=== PATIENT | male | born 1950 | race Caucasian/White ===

== ENCOUNTER 2018-03-13 17:58 | Inpatient (IN) | payer OTHER ==
[~2018-03-13 17:58] MED LIST: ETOMIDATE 20 MG INJ; SUCCINYLCHOLINE CHLORIDE 100 MG/5 ML SYG IV
[2018-03-13] MEDS: ETOMIDATE 20 MG INJ IV (17:59)
[2018-03-13] MEDS: SUCCINYLCHOLINE CHLORIDE 100 MG/5 ML SYG IV (18:00)
[2018-03-13] MEDS: PIPER-TAZO 3.375 GM IV (PMX) 100 ML IVPB (18:07)
[2018-03-13] MEDS ORDERED: PROPOFOL 100 ML (18:11)
[2018-03-13] MEDS: PROPOFOL 100 ML IV ×2 (18:15→22:27)
[2018-03-13 18:23] LABS: ADD MAN DIFF? NO
[2018-03-13 18:25] LABS: WHITE BLOOD COUNT 14.4 10^3/ul (4.8-10.8)
[2018-03-13 18:25] LABS: BASOPHIL # 0.1 10^3/ul (0.0-0.1); BASOPHILS % 0.3 % (0.0-2.0); EOSINOPHILS % 0.1 % (0.0-7.0); HEMOGLOBIN 12.9 g/dl (14.0-18.0); LYMPHOCYTES # 1.5 10^3/ul (0.8-2.9); LYMPHOCYTES % 10.7 % (15.0-51.0); MEAN CORPUSCULAR HEMOGLOBIN 33.2 pg (29.0-33.0); MEAN CORPUSCULAR HGB CONC 32.3 g/dl (32.0-37.0); MEAN CORPUSCULAR VOLUME 102.8 fl (82.0-101.0); MEAN PLATELET VOLUME 12.2 fl (7.4-10.4); MONOCYTES % 6.7 % (0.0-11.0); NEUTROPHIL # 11.8 10^3/ul (1.6-7.5); NEUTROPHILS % 81.9 % (39.0-77.0); PLATELET COUNT 230 10^3/UL (140-415); RED BLOOD COUNT 3.89 10^6/ul (4.70-6.10); RED CELL DISTRIBUTION WIDTH 13.5 % (11.5-14.5)
[2018-03-13 18:29] LABS: INR 1.01; PROTIME 13.4 Sec (11.9-14.9)
[2018-03-13 18:30] LABS: PARTIAL THROMBOPLASTIN TIME 30.4 Sec (23.0-35.0)
[2018-03-13 18:32] LABS: ALANINE AMINOTRANSFERASE 34 IU/L (13-69); ALBUMIN 4.4 g/dl (3.3-4.9); ALBUMIN/GLOBULIN RATIO 1.04; ALKALINE PHOSPHATASE 91 IU/L (42-121); AMYLASE 81 U/L (11-123); ANION GAP 23 (8-16); ASPARTATE AMINO TRANSFERASE 114 IU/L (15-46); BILIRUBIN,INDIRECT 1.5 mg/dl (0-1.1); BILIRUBIN,TOTAL 1.5 mg/dl (0.2-1.3); BLOOD UREA NITROGEN 17 mg/dl (7-20); CALCIUM 9.3 mg/dl (8.4-10.2); CARBON DIOXIDE 15 mmol/L (21-31); CHLORIDE 110 mmol/L (97-110); CREATININE 1.32 mg/dl (0.61-1.24); GLUCOSE 246 mg/dl (70-220); LIPASE 57 U/L (23-300); POTASSIUM 4.8 mmol/L (3.5-5.1); SODIUM 143 mmol/L (135-144); TOTAL PROTEIN 8.6 g/dl (6.1-8.1)
[2018-03-13 18:37] LABS: LACTIC ACID 6.4 mmol/L (0.5-2.0)
[2018-03-13 18:50] LABS: AADO2 Arterial 530.6 mmHg (7.0-24.0); Allen Test ACCEPTAB; Arterial Base Excess -13.9 mmol/L (-3.0-3); Arterial Blood Gas Oxygen Sat 98.1 mmHG (95.0-98.0); Arterial COHb 0.7 % (0.0-3.0); Arterial Fraction of Oxyhgb 97.1 % (93.0-99.0); Arterial HCO3 13.9 mmol/L (22.0-26.0); Arterial MetHb 0.3 % (0.0-1.5); Arterial Total Hemglobin 13.7 g/dl (12.0-18.0); Arterial pCO2 39.2 mmhg (35-45); MODE VENT - AC; Site Right Radial
[2018-03-13 18:59] LABS: ETHANOL < 10.0 mg/dl
[2018-03-13 19:08] LABS: B-TYPE NATRIURETIC PEPTIDE 12800 PG/ML (0-125)
[2018-03-13] MEDS: LORAZEPAM 2 MG INJ IV (19:12)
[2018-03-13] MEDS: VANCOMYCIN 1 GM (PMX) 250 ML IVPB (19:40)
[2018-03-13] MEDS ORDERED: FLUMAZENIL 0.5 MG INJ IV (20:00)
[2018-03-13] MEDS ORDERED: NALOXONE (0.4 MG/ML) INJ IV (20:00)
[2018-03-13] MEDS ORDERED: DOCUSATE SODIUM 100 MG CAP PO (20:00)
[2018-03-13] MEDS ORDERED: ONDANSETRON 4 MG INJ IV (20:00)
[2018-03-13] MEDS ORDERED: ACETAMINOPHEN 325 MG TAB PO (20:00)
[2018-03-13] MEDS ORDERED: ALBUTEROL 0.083% (NEB) 2.5 MG/3 ML AMP NEB ×2 (20:00→21:00)
[2018-03-13] MEDS ORDERED: ACETAMINOPHEN 650 MG SUPP PR (20:00)
[2018-03-13] MEDS ORDERED: IPRATROPIUM (NEB) 0.5 MG/2.5 ML AMP NEB ×2 (20:00→21:00)
[2018-03-13] MEDS ORDERED: FENTAnyl (DRIP) 1000 mcg/100mL 100 ML IV (20:00)
[2018-03-13] MEDS: MIDAZOLAM (DRIP) 50 mg/50 mL 50 ML IV (20:18)
[2018-03-13] MEDS: SODIUM CHLORIDE 0.9% 1L BAG IV* (20:24)
[2018-03-13 20:35] LABS: ADD UMIC YES; UR AMORPHOUS CRYSTAL FEW /HPF (NONE SEEN); UR ASCORBIC ACID NEGATIVE (NEGATIVE); UR BACTERIA FEW /HPF (NONE SEEN); UR BILIRUBIN (Dip) NEGATIVE (NEGATIVE); UR BLOOD (Dip) 2+ mg/dL (NEGATIVE); UR CLARITY CLOUDY (CLEAR); UR COLOR AMBER (YELLOW); UR GLUCOSE (Dip) 1+ mg/dL (NEGATIVE); UR KETONES (Dip) 1+ mg/dL (NEGATIVE); UR LEUKOCYTE ESTERASE (Dip) NEGATIVE Leu/ul (NEGATIVE); UR MUCUS FEW /HPF (NONE SEEN); UR NITRITE (Dip) NEGATIVE (NEGATIVE); UR RBC 9 /HPF (0-5); UR SPECIFIC GRAVITY (Dip) 1.019 (1.003-1.030); UR SQUAMOUS EPITHELIAL CELL FEW /HPF (FEW); UR TOTAL PROTEIN (Dip) 2+ mg/dl (NEGATIVE); UR UROBILINOGEN (Dip) NEGATIVE (NEGATIVE); UR WBC 4 /HPF (0-5)
[2018-03-13 20:42] LABS: HEMOGLOBIN A1C 5.2 % (0-5.9)
[2018-03-13] MEDS: ALBUTEROL/IPRATROPIUM (NEB) 3 ML AMP NEB (21:01)
[2018-03-13] MEDS: ROCURONIUM 50 MG INJ IV (22:16)
[2018-03-13] MEDS: NORepinephrine 8MG/250 ML (PMX 250 ML IV (22:18)
[2018-03-13] MEDS: MAGNESIUM SULFATE 2 GM, MULTIVITAMINS 10 ML, THIAMINE 100 MG, FOLIC ACID 1 MG in SOD CH... IV (22:34)
[2018-03-13 22:38] LABS: LACTIC ACID 2.5 mmol/L (0.5-2.0)
[2018-03-14] MEDS: PIPER-TAZO 3.375 GM IV (PMX) 100 ML IVPB ×4 (00:51→18:24)
[2018-03-14] MEDS: DEXTROSE 5%-0.45% NACL 1,000 ML IV ×3 (00:51→21:09)
[2018-03-14] MEDS: ALBUTEROL/IPRATROPIUM (NEB) 3 ML AMP NEB ×5 (01:07→20:04)
[2018-03-14 01:30] LABS: LACTIC ACID 1.3 mmol/L (0.5-2.0)
[2018-03-14] MEDS ORDERED: GLUCOSE GEL 15 GRAM TUBE BUCCAL (05:30)
[2018-03-14] MEDS ORDERED: GLUCOSE GEL 15 GRAM TUBE PO ×2 (05:30)
[2018-03-14] MEDS ORDERED: GLUCAGON 1 MG INJ IM (05:30)
[2018-03-14] MEDS ORDERED: DEXTROSE 50% 50 ML SYRINGE IV ×2 (05:30)
[2018-03-14] MEDS: PANTOPRAZOLE 40 MG INJ IV (06:01)
[2018-03-14] MEDS: PROPOFOL 100 ML IV ×3 (06:03→23:12)
[2018-03-14 08:54] LABS: ADD MAN DIFF? NO
[2018-03-14 09:00] LABS: BASOPHILS % 0.2 % (0.0-2.0); HEMATOCRIT 31.9 % (42.0-52.0); HEMOGLOBIN 10.4 g/dl (14.0-18.0); LYMPHOCYTES % 9.6 % (15.0-51.0); MEAN CORPUSCULAR HEMOGLOBIN 33.3 pg (29.0-33.0); MEAN CORPUSCULAR HGB CONC 32.6 g/dl (32.0-37.0); MEAN CORPUSCULAR VOLUME 102.2 fl (82.0-101.0); MEAN PLATELET VOLUME 11.6 fl (7.4-10.4); MONOCYTE # 0.5 10^3/ul (0.3-0.9); MONOCYTES % 5.2 % (0.0-11.0); NEUTROPHIL # 8.7 10^3/ul (1.6-7.5); NEUTROPHILS % 84.8 % (39.0-77.0); PLATELET COUNT 130 10^3/UL (140-415); RED BLOOD COUNT 3.12 10^6/ul (4.70-6.10); RED CELL DISTRIBUTION WIDTH 13.7 % (11.5-14.5)
[2018-03-14 09:00] LABS: WHITE BLOOD COUNT 10.3 10^3/ul (4.8-10.8)
[2018-03-14 09:20] LABS: ANION GAP 9 (8-16); BLOOD UREA NITROGEN 20 mg/dl (7-20); CALCIUM 7.3 mg/dl (8.4-10.2); CARBON DIOXIDE 21 mmol/L (21-31); CHLORIDE 117 mmol/L (97-110); CREATININE 1.26 mg/dl (0.61-1.24); GLUCOSE 186 mg/dl (70-220); POTASSIUM 4.8 mmol/L (3.5-5.1); SODIUM 142 mmol/L (135-144)
[2018-03-14] MEDS: ENOXAPARIN 40 MG/0.4 ML SYG SC (09:26)
[2018-03-14] MEDS: INSULIN ASPART [NOVOLOG] 3 ML PEN SC ×4 (09:26→20:49)
[2018-03-14] MEDS: MULTIVITAMINS 10 ML, THIAMINE 100 MG, FOLIC ACID 1 MG in SOD CHLORIDE 0.9% 1,000 ML IVPB (09:27)
[2018-03-14 09:28] LABS: AADO2 Arterial 239.7 mmHg (7.0-24.0); Allen Test ACCEPTAB; Arterial Base Excess -4.4 mmol/L (-3.0-3); Arterial Blood Gas Oxygen Sat 98.9 mmHG (95.0-98.0); Arterial COHb 0.2 % (0.0-3.0); Arterial Fraction of Oxyhgb 98.4 % (93.0-99.0); Arterial HCO3 19.2 mmol/L (22.0-26.0); Arterial MetHb 0.3 % (0.0-1.5); Arterial Total Hemglobin 11.8 g/dl (12.0-18.0); Arterial pCO2 30.7 mmhg (35-45); MODE VENT - AC; Site Right Radial
[2018-03-14] MEDS ORDERED: HEPARIN 1000 UNITS/ML 10 ML INJ IV (10:00)
[2018-03-14] MEDS: FENTAnyl (DRIP) 1000 mcg/100mL 100 ML IV ×2 (11:04→19:25)
[2018-03-14] MEDS: HEPARIN 1000 UNITS/ML 10 ML INJ IV (11:05)
[2018-03-14] MEDS: HEPARIN 25000 UNITS/250 ML 250 ML IV (11:06)
[2018-03-14] MEDS: ASPIRIN 325 MG TAB NGT (11:10)
[2018-03-14] MEDS: ALBUMIN HUMAN 25% 100 ML IV ×2 (15:05→23:03)
[2018-03-14 15:08] LABS: B-TYPE NATRIURETIC PEPTIDE 11900 PG/ML (0-125)
[2018-03-14 15:25] LABS: CHOLESTEROL 167 mg/dl (100-200)
[2018-03-14 15:25] LABS: CHOL/HDL RATIO 2.4 RATIO; HDL CHOLESTEROL 68 mg/dl (30-78); LDL CHOLESTEROL,CALCULATED 87 mg/dl; TRIGLYCERIDES 59 mg/dl (0-149)
[2018-03-14] MEDS: MAGNESIUM SULFATE 2 GM/50 ML 50 ML IVPB (16:31)
[2018-03-14 18:44] LABS: PARTIAL THROMBOPLASTIN TIME > 180.0 Sec (23.0-35.0)
[2018-03-14] MEDS: ISOSORBIDE DINITRATE 5 MG TAB PO (20:49)
[2018-03-14 21:41] LABS: PARTIAL THROMBOPLASTIN TIME 61.8 Sec (23.0-35.0)
[2018-03-15] MEDS: PIPER-TAZO 3.375 GM IV (PMX) 100 ML IVPB ×4 (00:04→18:24)
[2018-03-15] MEDS: LORAZEPAM 2 MG INJ IV (00:23)
[2018-03-15] MEDS: INSULIN ASPART [NOVOLOG] 3 ML PEN SC ×6 (01:27→22:28)
[2018-03-15] MEDS ORDERED: ACCU-CHEK XX (02:00)
[2018-03-15] MEDS: ALBUTEROL/IPRATROPIUM (NEB) 3 ML AMP NEB ×6 (04:11→20:13)
[2018-03-15 04:55] LABS: ADD MAN DIFF? NO
[2018-03-15 05:07] LABS: WHITE BLOOD COUNT 5.6 10^3/ul (4.8-10.8)
[2018-03-15 05:07] LABS: ABNORMAL IP MESSAGE 1; BASOPHILS % 0.4 % (0.0-2.0); EOSINOPHILS # 0.1 10^3/ul (0.0-0.5); EOSINOPHILS % 0.9 % (0.0-7.0); HEMATOCRIT 26.6 % (42.0-52.0); HEMOGLOBIN 8.5 g/dl (14.0-18.0); LYMPHOCYTES # 1.1 10^3/ul (0.8-2.9); LYMPHOCYTES % 19.8 % (15.0-51.0); MEAN CORPUSCULAR HEMOGLOBIN 33.3 pg (29.0-33.0); MEAN CORPUSCULAR VOLUME 104.3 fl (82.0-101.0); MEAN PLATELET VOLUME 12.6 fl (7.4-10.4); MONOCYTE # 0.4 10^3/ul (0.3-0.9); MONOCYTES % 6.6 % (0.0-11.0); NEUTROPHIL # 4.1 10^3/ul (1.6-7.5); NEUTROPHILS % 72.1 % (39.0-77.0); PLATELET COUNT 86 10^3/UL (140-415); POSITIVE DIFF @See below; RED BLOOD COUNT 2.55 10^6/ul (4.70-6.10); RED CELL DISTRIBUTION WIDTH 13.9 % (11.5-14.5)
[2018-03-15] MEDS: FENTAnyl (DRIP) 1000 mcg/100mL 100 ML IV ×2 (05:12→22:23)
[2018-03-15] MEDS: PANTOPRAZOLE 40 MG INJ IV (05:14)
[2018-03-15 05:27] LABS: PARTIAL THROMBOPLASTIN TIME 50.6 Sec (23.0-35.0)
[2018-03-15 05:48] LABS: ANION GAP 10 (8-16); BLOOD UREA NITROGEN 17 mg/dl (7-20); CALCIUM 7.4 mg/dl (8.4-10.2); CARBON DIOXIDE 22 mmol/L (21-31); CHLORIDE 113 mmol/L (97-110); GLUCOSE 145 mg/dl (70-220); MAGNESIUM 2.2 mg/dl (1.7-2.5); PHOSPHORUS 2.5 mg/dl (2.5-4.9); POTASSIUM 3.9 mmol/L (3.5-5.1); SODIUM 141 mmol/L (135-144)
[2018-03-15] MEDS: PROPOFOL 100 ML IV ×3 (06:19→20:43)
[2018-03-15 07:42] LABS: AADO2 Arterial 151.1 mmHg (7.0-24.0); Allen Test ACCEPTAB; Arterial Base Excess -5.5 mmol/L (-3.0-3); Arterial Blood Gas Oxygen Sat 96.4 mmHG (95.0-98.0); Arterial COHb 0.3 % (0.0-3.0); Arterial Fraction of Oxyhgb 95.9 % (93.0-99.0); Arterial HCO3 19.6 mmol/L (22.0-26.0); Arterial MetHb 0.2 % (0.0-1.5); Arterial pCO2 36.5 mmhg (35-45); MODE VENT - AC; Site Right Radial
[2018-03-15] MEDS: ALBUMIN HUMAN 25% 100 ML IV (07:56)
[2018-03-15] MEDS: ASPIRIN 325 MG TAB NGT (09:39)
[2018-03-15] MEDS: ISOSORBIDE DINITRATE 5 MG TAB PO (09:39)
[2018-03-15] MEDS ORDERED: VANCOMYCIN IV PER PHARMACY XX (10:00)
[2018-03-15 11:09] LABS: PLATELET COUNT 77 10^3/UL (140-415)
[2018-03-15] MEDS: MULTIVITAMINS 10 ML, THIAMINE 100 MG, FOLIC ACID 1 MG in SOD CHLORIDE 0.9% 1,000 ML IVPB (11:11)
[2018-03-15] MEDS: DEXMEDETOMIDINE HCL 200 MCG in SOD CHLORIDE 0.9% 48 ML IV ×5 (11:12→23:02)
[2018-03-15 11:15] LABS: INR 1.17; PROTIME 15.1 Sec (11.9-14.9); PT RATIO 1.2
[2018-03-15 11:16] LABS: PARTIAL THROMBOPLASTIN TIME 56.6 Sec (23.0-35.0)
[2018-03-15 11:19] LABS: D-DIMER 1923.91 ng/ml (<460)
[2018-03-15 11:20] LABS: THROMBIN TIME 21.5 SEC (13.8-19.1)
[2018-03-15] MEDS: CHLORDIAZEPOXIDE 25 MG CAP PO (12:41)
[2018-03-15 12:48] LABS: FIBRIN SPLIT PRODUCT <10 ug/ml (<10)
[2018-03-15 13:51] LABS: ALANINE AMINOTRANSFERASE 24 IU/L (13-69); ALBUMIN 2.8 g/dl (3.3-4.9); ALKALINE PHOSPHATASE 40 IU/L (42-121); ASPARTATE AMINO TRANSFERASE 48 IU/L (15-46); BILIRUBIN,INDIRECT 0.7 mg/dl (0-1.1); BILIRUBIN,TOTAL 0.7 mg/dl (0.2-1.3); TOTAL PROTEIN 5.8 g/dl (6.1-8.1)
[2018-03-15] MEDS: VANCOMYCIN 1.75 GM in SOD CHLORIDE 0.9% 500 ML IVPB (14:19)
[2018-03-15 14:49] LABS: ADD MAN DIFF? NO
[2018-03-15 14:53] LABS: WHITE BLOOD COUNT 4.7 10^3/ul (4.8-10.8)
[2018-03-15 14:53] LABS: ABNORMAL IP MESSAGE 1; BASOPHILS % 0.4 % (0.0-2.0); EOSINOPHILS # 0.1 10^3/ul (0.0-0.5); EOSINOPHILS % 1.5 % (0.0-7.0); HEMATOCRIT 27.5 % (42.0-52.0); HEMOGLOBIN 8.7 g/dl (14.0-18.0); LYMPHOCYTES # 1.1 10^3/ul (0.8-2.9); MEAN CORPUSCULAR HEMOGLOBIN 33.3 pg (29.0-33.0); MEAN CORPUSCULAR HGB CONC 31.6 g/dl (32.0-37.0); MEAN CORPUSCULAR VOLUME 105.4 fl (82.0-101.0); MONOCYTE # 0.3 10^3/ul (0.3-0.9); MONOCYTES % 7.1 % (0.0-11.0); NEUTROPHIL # 3.1 10^3/ul (1.6-7.5); NEUTROPHILS % 66.8 % (39.0-77.0); PLATELET COUNT 77 10^3/UL (140-415); POSITIVE DIFF @See below; RED BLOOD COUNT 2.61 10^6/ul (4.70-6.10)
[2018-03-15 15:46] LABS: HEPATITIS B SURFACE ANTIGEN NEGATIVE (NEGATIVE)
[2018-03-15 16:04] LABS: HEPATITIS B CORE ANTIBODY NEGATIVE (NEGATIVE); HEPATITIS C VIRAL ANTIBODY NEGATIVE (NEGATIVE)
[2018-03-15 16:32] LABS: FOLATE > 20.0 ng/ml (2.8-20.0)
[2018-03-15] MEDS: DEXTROSE 5%-0.45% NACL 1,000 ML IV ×2 (20:07→21:46)
[2018-03-16] MEDS: CHLORDIAZEPOXIDE 25 MG CAP PO ×4 (01:12→21:07)
[2018-03-16] MEDS: PROPOFOL 100 ML IV ×3 (01:13→19:43)
[2018-03-16] MEDS: INSULIN ASPART [NOVOLOG] 3 ML PEN SC ×6 (01:20→21:00)
[2018-03-16] MEDS: PIPER-TAZO 3.375 GM IV (PMX) 100 ML IVPB ×2 (01:22→05:17)
[2018-03-16] MEDS: ALBUTEROL/IPRATROPIUM (NEB) 3 ML AMP NEB ×6 (01:27→20:38)
[2018-03-16] MEDS: DEXMEDETOMIDINE HCL 200 MCG in SOD CHLORIDE 0.9% 48 ML IV ×7 (02:05→18:23)
[2018-03-16 04:55] LABS: ADD MAN DIFF? NO
[2018-03-16 05:01] LABS: WHITE BLOOD COUNT 4.7 10^3/ul (4.8-10.8)
[2018-03-16 05:01] LABS: ABNORMAL IP MESSAGE 1; BASOPHILS % 0.6 % (0.0-2.0); EOSINOPHILS # 0.1 10^3/ul (0.0-0.5); HEMATOCRIT 29.2 % (42.0-52.0); HEMOGLOBIN 9.2 g/dl (14.0-18.0); LYMPHOCYTES # 1.1 10^3/ul (0.8-2.9); LYMPHOCYTES % 23.7 % (15.0-51.0); MEAN CORPUSCULAR HEMOGLOBIN 33.5 pg (29.0-33.0); MEAN CORPUSCULAR HGB CONC 31.5 g/dl (32.0-37.0); MEAN CORPUSCULAR VOLUME 106.2 fl (82.0-101.0); MEAN PLATELET VOLUME 12.5 fl (7.4-10.4); MONOCYTE # 0.3 10^3/ul (0.3-0.9); MONOCYTES % 7.3 % (0.0-11.0); PLATELET COUNT 78 10^3/UL (140-415); POSITIVE DIFF @See below; RED BLOOD COUNT 2.75 10^6/ul (4.70-6.10); RED CELL DISTRIBUTION WIDTH 14.1 % (11.5-14.5)
[2018-03-16] MEDS: PANTOPRAZOLE 40 MG INJ IV (05:17)
[2018-03-16 05:18] LABS: PHOSPHORUS 2.3 mg/dl (2.5-4.9)
[2018-03-16 05:25] LABS: ALANINE AMINOTRANSFERASE 24 IU/L (13-69); ALBUMIN 2.7 g/dl (3.3-4.9); ALBUMIN/GLOBULIN RATIO 0.87; ALKALINE PHOSPHATASE 52 IU/L (42-121); ANION GAP 10 (8-16); ASPARTATE AMINO TRANSFERASE 45 IU/L (15-46); BILIRUBIN,INDIRECT 0.6 mg/dl (0-1.1); BILIRUBIN,TOTAL 0.6 mg/dl (0.2-1.3); BLOOD UREA NITROGEN 12 mg/dl (7-20); CALCIUM 7.2 mg/dl (8.4-10.2); CARBON DIOXIDE 19 mmol/L (21-31); CHLORIDE 115 mmol/L (97-110); CREATININE 1.16 mg/dl (0.61-1.24); GLUCOSE 146 mg/dl (70-220); SODIUM 140 mmol/L (135-144); TOTAL PROTEIN 5.8 g/dl (6.1-8.1)
[2018-03-16 07:27] LABS: AADO2 Arterial 157.4 mmHg (7.0-24.0); Allen Test ACCEPTAB; Arterial Base Excess -7.2 mmol/L (-3.0-3); Arterial Blood Gas Oxygen Sat 96.5 mmHG (95.0-98.0); Arterial COHb 0 % (0.0-3.0); Arterial Fraction of Oxyhgb 96.4 % (93.0-99.0); Arterial HCO3 17.5 mmol/L (22.0-26.0); Arterial MetHb 0.1 % (0.0-1.5); Arterial Total Hemglobin 10.7 g/dl (12.0-18.0); Arterial pCO2 32.5 mmhg (35-45); MODE VENT - AC; Site Right Radial
[2018-03-16] MEDS ORDERED: ASPIRIN 325 MG TAB NGT (09:00)
[2018-03-16] MEDS: MULTIVITAMINS 10 ML, THIAMINE 100 MG, FOLIC ACID 1 MG in SOD CHLORIDE 0.9% 1,000 ML IVPB (10:12)
[2018-03-16] MEDS: ASPIRIN 81 MG TAB NGT (10:30)
[2018-03-16] MEDS: FUROSEMIDE 40 MG INJ IV (10:32)
[2018-03-16] MEDS: FENTAnyl (DRIP) 1000 mcg/100mL 100 ML IV ×2 (11:22→23:45)
[2018-03-16] MEDS: NEUTRA-PHOS 250 MG PACKET PO (11:29)
[2018-03-16] MEDS ORDERED: VANCOMYCIN 1.5 GM in SOD CHLORIDE 0.9% 250 ML IVPB (13:00)
[2018-03-16] MEDS: SOD CHLORIDE 0.9% IV ×3 (14:40→23:37)
[2018-03-16] MEDS: DEXMEDETOMIDINE HCL IV ×3 (14:40→23:37)
[2018-03-16] MEDS: METOCLOPRAMIDE 10 MG INJ IV ×2 (14:41→22:43)
[2018-03-16 16:07] LABS: HAPTOGLOBIN 144 mg/dL (43-212)
[2018-03-16] MEDS: DEXTROSE 5%-0.45% NACL 1,000 ML IV (18:24)
[2018-03-17] MEDS: ALBUTEROL/IPRATROPIUM (NEB) 3 ML AMP NEB ×2 (01:23→05:37)
[2018-03-17] MEDS: INSULIN ASPART [NOVOLOG] 3 ML PEN SC ×6 (01:46→20:21)
[2018-03-17] MEDS: SOD CHLORIDE 0.9% IV ×6 (02:54→20:19)
[2018-03-17] MEDS: DEXMEDETOMIDINE HCL IV ×6 (02:54→20:19)
[2018-03-17 04:55] LABS: ADD MAN DIFF? NO
[2018-03-17 05:17] LABS: ABNORMAL IP MESSAGE 1; BASOPHILS % 0.6 % (0.0-2.0); EOSINOPHILS # 0.2 10^3/ul (0.0-0.5); EOSINOPHILS % 3.2 % (0.0-7.0); HEMATOCRIT 29.5 % (42.0-52.0); HEMOGLOBIN 9.3 g/dl (14.0-18.0); LYMPHOCYTES # 1.1 10^3/ul (0.8-2.9); LYMPHOCYTES % 24.3 % (15.0-51.0); MEAN CORPUSCULAR HGB CONC 31.5 g/dl (32.0-37.0); MEAN CORPUSCULAR VOLUME 104.6 fl (82.0-101.0); MEAN PLATELET VOLUME 13.1 fl (7.4-10.4); MONOCYTE # 0.5 10^3/ul (0.3-0.9); MONOCYTES % 11.6 % (0.0-11.0); NEUTROPHIL # 2.8 10^3/ul (1.6-7.5); NEUTROPHILS % 59.4 % (39.0-77.0); PLATELET COUNT 79 10^3/UL (140-415); POSITIVE DIFF @See below; RED BLOOD COUNT 2.82 10^6/ul (4.70-6.10); RED CELL DISTRIBUTION WIDTH 13.5 % (11.5-14.5)
[2018-03-17 05:17] LABS: WHITE BLOOD COUNT 4.7 10^3/ul (4.8-10.8)
[2018-03-17] MEDS: PANTOPRAZOLE 40 MG INJ IV (05:25)
[2018-03-17] MEDS: METOCLOPRAMIDE 10 MG INJ IV ×2 (05:25→18:16)
[2018-03-17 05:52] LABS: ANION GAP 10 (8-16); CALCIUM 7.3 mg/dl (8.4-10.2); CARBON DIOXIDE 19 mmol/L (21-31); CHLORIDE 117 mmol/L (97-110); CREATININE 1.08 mg/dl (0.61-1.24); GLUCOSE 137 mg/dl (70-220); POTASSIUM 3.8 mmol/L (3.5-5.1); SODIUM 142 mmol/L (135-144)
[2018-03-17 05:53] LABS: BLOOD UREA NITROGEN 11 mg/dl (7-20)
[2018-03-17 05:54] LABS: MAGNESIUM 1.7 mg/dl (1.7-2.5)
[2018-03-17 05:54] LABS: PHOSPHORUS 2.5 mg/dl (2.5-4.9)
[2018-03-17] MEDS: CHLORDIAZEPOXIDE 25 MG CAP PO ×3 (08:31→20:20)
[2018-03-17] MEDS: FUROSEMIDE 40 MG INJ IV ×2 (08:31→18:15)
[2018-03-17] MEDS: ASPIRIN 81 MG TAB NGT (08:31)
[2018-03-17] MEDS: MULTIVITAMINS 10 ML, THIAMINE 100 MG, FOLIC ACID 1 MG in SOD CHLORIDE 0.9% 1,000 ML IVPB (09:22)
[2018-03-17] MEDS: ALBUTEROL HFA 8 GM INHALER INH ×2 (09:56→19:55)
[2018-03-17] MEDS: IPRATROPIUM (HFA) 12.9 GM INHALER INH ×2 (09:56→19:55)
[2018-03-17] MEDS: DEXTROSE 5%-0.45% NACL 1,000 ML IV ×2 (10:16→22:30)
[2018-03-17] MEDS: PROPOFOL 100 ML IV ×2 (11:23→23:22)
[2018-03-17] MEDS: FENTAnyl (DRIP) 1000 mcg/100mL 100 ML IV (15:32)
[2018-03-17 15:56] LABS: HEPARIN INDUCED PLATELET AB NEGATIVE (NEGATIVE)
[2018-03-17] MEDS: BISACODYL (EC) 5 MG TAB PO (21:10)
[2018-03-17] MEDS: MAGNESIUM HYDROXIDE 30ML CUP PO (21:10)
[2018-03-18] MEDS: INSULIN ASPART [NOVOLOG] 3 ML PEN SC ×6 (00:28→21:00)
[2018-03-18] MEDS: METOCLOPRAMIDE 10 MG INJ IV ×4 (00:29→18:42)
[2018-03-18] MEDS: DEXMEDETOMIDINE HCL IV ×6 (00:37→21:13)
[2018-03-18] MEDS: SOD CHLORIDE 0.9% IV ×6 (00:37→21:13)
[2018-03-18] MEDS: IPRATROPIUM (HFA) 12.9 GM INHALER INH ×4 (01:24→19:37)
[2018-03-18] MEDS: ALBUTEROL HFA 8 GM INHALER INH ×4 (01:25→19:37)
[2018-03-18 05:04] LABS: ADD MAN DIFF? NO
[2018-03-18 05:14] LABS: RETICULOCYTE RBC 2.82; WHITE BLOOD COUNT 4.9 10^3/ul (4.8-10.8)
[2018-03-18 05:14] LABS: ABNORMAL IP MESSAGE 1; BASOPHILS % 0.2 % (0.0-2.0); EOSINOPHILS # 0.2 10^3/ul (0.0-0.5); EOSINOPHILS % 4.7 % (0.0-7.0); HEMOGLOBIN 9.8 g/dl (14.0-18.0); LYMPHOCYTES # 0.9 10^3/ul (0.8-2.9); LYMPHOCYTES % 18.8 % (15.0-51.0); MEAN CORPUSCULAR HEMOGLOBIN 33.2 pg (29.0-33.0); MEAN CORPUSCULAR HGB CONC 32.7 g/dl (32.0-37.0); MEAN CORPUSCULAR VOLUME 101.7 fl (82.0-101.0); MEAN PLATELET VOLUME 12.7 fl (7.4-10.4); MONOCYTE # 0.6 10^3/ul (0.3-0.9); MONOCYTES % 12.7 % (0.0-11.0); NEUTROPHIL # 3.1 10^3/ul (1.6-7.5); NEUTROPHILS % 63.4 % (39.0-77.0); PLATELET COUNT 85 10^3/UL (140-415); POSITIVE DIFF @See below; RED BLOOD COUNT 2.95 10^6/ul (4.70-6.10); RED CELL DISTRIBUTION WIDTH 13.1 % (11.5-14.5); RETICULOCYTE COUNT # 0.073 X10^6 (0.020-0.110); RETICULOCYTE COUNT % 2.6 % (0.5-1.5)
[2018-03-18 05:37] LABS: ANION GAP 10 (8-16); BLOOD UREA NITROGEN 11 mg/dl (7-20); CALCIUM 7.6 mg/dl (8.4-10.2); CARBON DIOXIDE 21 mmol/L (21-31); CHLORIDE 113 mmol/L (97-110); CREATININE 0.92 mg/dl (0.61-1.24); GLUCOSE 118 mg/dl (70-220); POTASSIUM 3.6 mmol/L (3.5-5.1); SODIUM 140 mmol/L (135-144)
[2018-03-18] MEDS: FUROSEMIDE 40 MG INJ IV ×2 (05:39→18:42)
[2018-03-18] MEDS: PANTOPRAZOLE 40 MG INJ IV (05:39)
[2018-03-18 05:41] LABS: MAGNESIUM 1.3 mg/dl (1.7-2.5)
[2018-03-18 06:40] LABS: FOLATE 10.7 ng/ml (2.8-20.0)
[2018-03-18] MEDS ORDERED: BISACODYL 10 MG SUPP PR (07:00)
[2018-03-18] MEDS: NA PHOSPHATE/BIPHOS 133 ML ENEMA PR (08:09)
[2018-03-18] MEDS: ASPIRIN 81 MG TAB NGT (08:09)
[2018-03-18] MEDS: CHLORDIAZEPOXIDE 25 MG CAP PO ×3 (08:24→21:18)
[2018-03-18] MEDS: FENTAnyl (DRIP) 1000 mcg/100mL 100 ML IV (10:35)
[2018-03-18] MEDS: MAGNESIUM CITRATE 300 ML BTL PO (10:51)
[2018-03-18] MEDS: MAGNESIUM SULFATE 3 GM in DEXTROSE 5% 100 ML IVPB (12:25)
[2018-03-18] MEDS: PROPOFOL 100 ML IV (17:21)
[2018-03-19] MEDS: IPRATROPIUM (HFA) 12.9 GM INHALER INH ×4 (01:00→19:39)
[2018-03-19] MEDS: INSULIN ASPART [NOVOLOG] 3 ML PEN SC ×6 (01:00→21:00)
[2018-03-19] MEDS: ALBUTEROL HFA 8 GM INHALER INH ×4 (01:00→19:39)
[2018-03-19] MEDS: FENTAnyl (DRIP) 1000 mcg/100mL 100 ML IV (02:30)
[2018-03-19] MEDS: DEXTROSE 5%-0.45% NACL 1,000 ML IV (05:05)
[2018-03-19 05:06] LABS: ADD MAN DIFF? NO
[2018-03-19] MEDS: FUROSEMIDE 40 MG INJ IV ×2 (05:06→17:56)
[2018-03-19] MEDS: PANTOPRAZOLE 40 MG INJ IV (05:06)
[2018-03-19] MEDS: METOCLOPRAMIDE 10 MG INJ IV ×5 (05:06→23:52)
[2018-03-19 05:13] LABS: ABNORMAL IP MESSAGE 1; BASOPHILS % 0.4 % (0.0-2.0); EOSINOPHILS # 0.3 10^3/ul (0.0-0.5); EOSINOPHILS % 5.5 % (0.0-7.0); HEMATOCRIT 29.1 % (42.0-52.0); HEMOGLOBIN 9.7 g/dl (14.0-18.0); LYMPHOCYTES # 0.9 10^3/ul (0.8-2.9); MEAN CORPUSCULAR HEMOGLOBIN 33.1 pg (29.0-33.0); MEAN CORPUSCULAR HGB CONC 33.3 g/dl (32.0-37.0); MEAN CORPUSCULAR VOLUME 99.3 fl (82.0-101.0); MEAN PLATELET VOLUME 12.6 fl (7.4-10.4); MONOCYTE # 0.8 10^3/ul (0.3-0.9); MONOCYTES % 17.5 % (0.0-11.0); NEUTROPHIL # 2.6 10^3/ul (1.6-7.5); NEUTROPHILS % 57.4 % (39.0-77.0); PLATELET COUNT 94 10^3/UL (140-415); POSITIVE DIFF @See below; RED BLOOD COUNT 2.93 10^6/ul (4.70-6.10)
[2018-03-19 05:13] LABS: WHITE BLOOD COUNT 4.6 10^3/ul (4.8-10.8)
[2018-03-19] MEDS: DEXMEDETOMIDINE HCL IV ×4 (05:23→19:17)
[2018-03-19] MEDS: SOD CHLORIDE 0.9% IV ×4 (05:23→19:17)
[2018-03-19 05:50] LABS: PHOSPHORUS 3.5 mg/dl (2.5-4.9)
[2018-03-19 05:50] LABS: ALANINE AMINOTRANSFERASE 27 IU/L (13-69); ALBUMIN 2.5 g/dl (3.3-4.9); ALBUMIN/GLOBULIN RATIO 0.75; ALKALINE PHOSPHATASE 87 IU/L (42-121); ANION GAP 10 (8-16); ASPARTATE AMINO TRANSFERASE 66 IU/L (15-46); BILIRUBIN,INDIRECT 0.6 mg/dl (0-1.1); BILIRUBIN,TOTAL 0.6 mg/dl (0.2-1.3); BLOOD UREA NITROGEN 13 mg/dl (7-20); CALCIUM 8.1 mg/dl (8.4-10.2); CARBON DIOXIDE 23 mmol/L (21-31); CHLORIDE 109 mmol/L (97-110); CREATININE 0.93 mg/dl (0.61-1.24); GLUCOSE 122 mg/dl (70-220); MAGNESIUM 1.7 mg/dl (1.7-2.5); POTASSIUM 3.2 mmol/L (3.5-5.1); SODIUM 139 mmol/L (135-144); TOTAL PROTEIN 5.8 g/dl (6.1-8.1)
[2018-03-19] MEDS: PROPOFOL 100 ML IV (06:12)
[2018-03-19] MEDS: PEG/ELECTROLYTES 4L BTL PO (10:35)
[2018-03-19] MEDS: ASPIRIN 81 MG TAB NGT (10:35)
[2018-03-19] MEDS: POTASSIUM CHLORIDE 100 ML IVPB (13:33)
[2018-03-20] MEDS: DEXMEDETOMIDINE HCL IV ×5 (00:48→19:19)
[2018-03-20] MEDS: SOD CHLORIDE 0.9% IV ×5 (00:48→19:19)
[2018-03-20] MEDS: PROPOFOL 100 ML IV ×2 (00:48→17:15)
[2018-03-20] MEDS: INSULIN ASPART [NOVOLOG] 3 ML PEN SC ×6 (01:00→21:06)
[2018-03-20] MEDS: FENTAnyl (DRIP) 1000 mcg/100mL 100 ML IV ×2 (01:05→21:05)
[2018-03-20] MEDS: IPRATROPIUM (HFA) 12.9 GM INHALER INH ×4 (01:43→20:20)
[2018-03-20] MEDS: ALBUTEROL HFA 8 GM INHALER INH ×4 (01:43→20:21)
[2018-03-20 05:14] LABS: ADD MAN DIFF? NO
[2018-03-20 05:19] LABS: ABNORMAL IP MESSAGE 1; HEMATOCRIT 27.8 % (42.0-52.0); HEMOGLOBIN 9.2 g/dl (14.0-18.0); MEAN CORPUSCULAR HEMOGLOBIN 33.1 pg (29.0-33.0); MEAN CORPUSCULAR HGB CONC 33.1 g/dl (32.0-37.0); MEAN PLATELET VOLUME 13.5 fl (7.4-10.4); POSITIVE DIFF @See below; RED BLOOD COUNT 2.78 10^6/ul (4.70-6.10); RED CELL DISTRIBUTION WIDTH 13.1 % (11.5-14.5)
[2018-03-20] MEDS: FUROSEMIDE 40 MG INJ IV ×2 (05:29→17:16)
[2018-03-20] MEDS: METOCLOPRAMIDE 10 MG INJ IV ×3 (05:30→17:16)
[2018-03-20] MEDS: PANTOPRAZOLE 40 MG INJ IV (05:30)
[2018-03-20] MEDS: DEXTROSE 5%-0.45% NACL 1,000 ML IV (05:30)
[2018-03-20 05:52] LABS: PLATELET COUNT 97 10^3/UL (140-415)
[2018-03-20 05:57] LABS: ALANINE AMINOTRANSFERASE 26 IU/L (13-69); ALBUMIN 2.5 g/dl (3.3-4.9); ALBUMIN/GLOBULIN RATIO 0.78; ALKALINE PHOSPHATASE 92 IU/L (42-121); ANION GAP 13 (8-16); ASPARTATE AMINO TRANSFERASE 51 IU/L (15-46); BILIRUBIN,INDIRECT 0.4 mg/dl (0-1.1); BILIRUBIN,TOTAL 0.4 mg/dl (0.2-1.3); BLOOD UREA NITROGEN 16 mg/dl (7-20); CALCIUM 7.8 mg/dl (8.4-10.2); CARBON DIOXIDE 23 mmol/L (21-31); CHLORIDE 106 mmol/L (97-110); CREATININE 1.15 mg/dl (0.61-1.24); GLUCOSE 138 mg/dl (70-220); POTASSIUM 3.2 mmol/L (3.5-5.1); SODIUM 139 mmol/L (135-144); TOTAL PROTEIN 5.7 g/dl (6.1-8.1)
[2018-03-20 06:04] LABS: PHOSPHORUS 3.3 mg/dl (2.5-4.9)
[2018-03-20 06:04] LABS: MAGNESIUM 1.3 mg/dl (1.7-2.5)
[2018-03-20] MEDS: ASPIRIN 81 MG TAB NGT (08:11)
[2018-03-20 09:13] LABS: BAND NEUTROPHILS #M 1.2 10^3/ul (0.0-0.6); BAND NEUTROPHILS % (M) 20 % (0-4); SEGMENTED NEUTROPHILS (M) % 50 % (39-77)
[2018-03-20 09:14] LABS: BURR CELLS 1+ (0-0); EOSINOPHILS % (M) 5 % (0-7); ERYTHROBLAST% (NRBC) (M) 1 % (0-0); LYMPHOCYTES #M 0.8 10^3/ul (0.8-2.9); LYMPHOCYTES % (M) 14 % (15-51); MONOCYTE #M 0.6 10^3/ul (0.3-0.9); MONOCYTES % (M) 11 % (0-11); PLATELET ESTIMATE SIG DECREASED; POIKILOCYTOSIS 2+ (0-0); POLYCHROMASIA 1+ (0-0); SEG NEUT #M 3.1 10^3/ul (1.6-7.5); SMUDGE%M 11 % (0-0); TARGET CELLS 1+ (0-0)
[2018-03-20] MEDS: POTASSIUM CHLORIDE 100 ML IVPB ×2 (14:34→17:03)
[2018-03-20] MEDS: MAGNESIUM SULFATE 2 GM/50 ML 50 ML IVPB (14:34)
[2018-03-20 17:08] LABS: OCCULT BLOOD STOOL NEGATIVE (NEGATIVE)
[2018-03-21] MEDS: METOCLOPRAMIDE 10 MG INJ IV ×5 (00:32→23:53)
[2018-03-21] MEDS: SOD CHLORIDE 0.9% IV ×2 (00:35→05:44)
[2018-03-21] MEDS: DEXMEDETOMIDINE HCL IV ×2 (00:35→05:44)
[2018-03-21] MEDS: INSULIN ASPART [NOVOLOG] 3 ML PEN SC ×6 (00:38→20:55)
[2018-03-21] MEDS: IPRATROPIUM (HFA) 12.9 GM INHALER INH ×3 (01:24→12:31)
[2018-03-21] MEDS: ALBUTEROL HFA 8 GM INHALER INH ×3 (01:25→12:31)
[2018-03-21 04:58] LABS: ADD MAN DIFF? NO
[2018-03-21 05:13] LABS: ABNORMAL IP MESSAGE 1; BASOPHILS % 0.5 % (0.0-2.0); EOSINOPHILS # 0.4 10^3/ul (0.0-0.5); EOSINOPHILS % 6.2 % (0.0-7.0); HEMATOCRIT 28.8 % (42.0-52.0); HEMOGLOBIN 9.4 g/dl (14.0-18.0); LYMPHOCYTES % 16.8 % (15.0-51.0); MEAN CORPUSCULAR HEMOGLOBIN 32.9 pg (29.0-33.0); MEAN CORPUSCULAR HGB CONC 32.6 g/dl (32.0-37.0); MEAN CORPUSCULAR VOLUME 100.7 fl (82.0-101.0); MEAN PLATELET VOLUME 13.3 fl (7.4-10.4); MONOCYTE # 0.8 10^3/ul (0.3-0.9); MONOCYTES % 13.8 % (0.0-11.0); NEUTROPHIL # 3.8 10^3/ul (1.6-7.5); NEUTROPHILS % 62.5 % (39.0-77.0); PLATELET COUNT 109 10^3/UL (140-415); POSITIVE DIFF @See below; RED BLOOD COUNT 2.86 10^6/ul (4.70-6.10)
[2018-03-21 05:27] LABS: LACTIC ACID 1.1 mmol/L (0.5-2.0)
[2018-03-21 05:29] LABS: PHOSPHORUS 3.3 mg/dl (2.5-4.9)
[2018-03-21 05:29] LABS: MAGNESIUM 1.7 mg/dl (1.7-2.5)
[2018-03-21 05:37] LABS: ANION GAP 12 (8-16); BLOOD UREA NITROGEN 18 mg/dl (7-20); CALCIUM 7.9 mg/dl (8.4-10.2); CARBON DIOXIDE 24 mmol/L (21-31); CHLORIDE 105 mmol/L (97-110); CREATININE 1.05 mg/dl (0.61-1.24); GLUCOSE 147 mg/dl (70-220); POTASSIUM 3.4 mmol/L (3.5-5.1); SODIUM 138 mmol/L (135-144)
[2018-03-21] MEDS: PANTOPRAZOLE 40 MG INJ IV (05:38)
[2018-03-21] MEDS: FUROSEMIDE 40 MG INJ IV ×2 (05:38→18:52)
[2018-03-21] MEDS: PROPOFOL 100 ML IV ×2 (05:44→17:00)
[2018-03-21 07:56] LABS: ANISOCYTOSIS 1+ (0-0); BAND NEUTROPHILS #M 1.3 10^3/ul (0.0-0.6); BAND NEUTROPHILS % (M) 22 % (0-4); BASOPHILS % (M) 1 % (0-2); EOSINOPHILS % (M) 7 % (0-7); GIANT THROMBO% (M) 1 % (0-0); LYMPHOCYTES #M 1.2 10^3/ul (0.8-2.9); LYMPHOCYTES % (M) 21 % (15-51); MONOCYTE #M 0.4 10^3/ul (0.3-0.9); MONOCYTES % (M) 7 % (0-11); PLATELET ESTIMATE DECREASED; PLATELET MORPHOLOGY COMMENT @See below; POLYCHROMASIA 1+ (0-0); REACTIVE LYMPHOCYTES #M 0.1 10^3/ul (0.0-0.0); REACTIVE LYMPHOCYTES% (M) 3 % (0-0); SEG NEUT #M 2.4 10^3/ul (1.6-7.5); SEGMENTED NEUTROPHILS (M) % 39 % (39-77); SMUDGE%M 6 % (0-0)
[2018-03-21] MEDS: ASPIRIN 81 MG TAB NGT (08:49)
[2018-03-21 12:17] LABS: AADO2 Arterial 98.9 mmHg (7.0-24.0); Allen Test ACCEPTAB; Arterial Base Excess 0.1 mmol/L (-3.0-3); Arterial COHb 0.3 % (0.0-3.0); Arterial Fraction of Oxyhgb 94.3 % (93.0-99.0); Arterial HCO3 23.5 mmol/L (22.0-26.0); Arterial MetHb 0.4 % (0.0-1.5); Arterial Total Hemglobin 12.9 g/dl (12.0-18.0); Arterial pCO2 34.4 mmhg (35-45); Blood Gas PS 8; MODE VENT - CPAP; Site Right Radial
[2018-03-21] MEDS: BUMETANIDE 1 MG INJ IV (12:35)
[2018-03-21] MEDS: POTASSIUM CHLORIDE 50 ML IVPB (12:42)
[2018-03-21] MEDS: MAGNESIUM SULFATE 2 GM/50 ML 50 ML IVPB (12:43)
[2018-03-21] MEDS: ACETAMINOPHEN 650MG/20.3ML CUP PO (19:31)
[2018-03-21] MEDS: LORAZEPAM 2 MG INJ IV (19:42)
[2018-03-21 22:20] LABS: Allen Test ACCEPTAB; Arterial Base Excess -0.7 mmol/L (-3.0-3); Arterial Blood Gas Oxygen Sat 96.4 mmHG (95.0-98.0); Arterial COHb 0.2 % (0.0-3.0); Arterial HCO3 24.8 mmol/L (22.0-26.0); Arterial MetHb 0.2 % (0.0-1.5); Arterial Total Hemglobin 11.6 g/dl (12.0-18.0); Arterial pCO2 44.3 mmhg (35-45); MODE MASK - NRB; Site Right Radial
[2018-03-22] MEDS: LORAZEPAM 2 MG INJ IV (01:07)
[2018-03-22] MEDS: INSULIN ASPART [NOVOLOG] 3 ML PEN SC ×6 (01:14→20:58)
[2018-03-22 01:53] LABS: AADO2 Arterial 588.2 mmHg (7.0-24.0); Allen Test ACCEPTAB; Arterial Base Excess -2.4 mmol/L (-3.0-3); Arterial Blood Gas Oxygen Sat 96.3 mmHG (95.0-98.0); Arterial COHb 0.1 % (0.0-3.0); Arterial HCO3 21.9 mmol/L (22.0-26.0); Arterial MetHb 0.2 % (0.0-1.5); Arterial Total Hemglobin 11.6 g/dl (12.0-18.0); Arterial pCO2 36.4 mmhg (35-45); MODE MASK - NRB; Site Right Radial
[2018-03-22 04:53] LABS: AADO2 Arterial 465.8 mmHg (7.0-24.0); Allen Test ACCEPTAB; Arterial Base Excess -0.7 mmol/L (-3.0-3); Arterial Blood Gas Oxygen Sat 99.2 mmHG (95.0-98.0); Arterial COHb 0.3 % (0.0-3.0); Arterial Fraction of Oxyhgb 98.5 % (93.0-99.0); Arterial MetHb 0.4 % (0.0-1.5); Arterial Total Hemglobin 11.1 g/dl (12.0-18.0); Arterial pCO2 34.4 mmhg (35-45); Blood Gas IEPAP 15/5; Blood Gas PS 10; MODE MASK - BIPAP; Site Right Radial
[2018-03-22] MEDS: PROPOFOL 100 ML IV ×2 (05:00→16:23)
[2018-03-22] MEDS: PANTOPRAZOLE 40 MG INJ IV (05:36)
[2018-03-22] MEDS: FUROSEMIDE 40 MG INJ IV ×2 (05:37→18:00)
[2018-03-22] MEDS: METOCLOPRAMIDE 10 MG INJ IV ×3 (05:37→17:08)
[2018-03-22 05:56] LABS: ABNORMAL IP MESSAGE 1; HEMATOCRIT 30.6 % (42.0-52.0); MEAN CORPUSCULAR HEMOGLOBIN 32.8 pg (29.0-33.0); MEAN CORPUSCULAR HGB CONC 32.7 g/dl (32.0-37.0); MEAN CORPUSCULAR VOLUME 100.3 fl (82.0-101.0); MEAN PLATELET VOLUME 13.1 fl (7.4-10.4); PLATELET COUNT 142 10^3/UL (140-415); POSITIVE DIFF @See below; RED BLOOD COUNT 3.05 10^6/ul (4.70-6.10); RED CELL DISTRIBUTION WIDTH 13.1 % (11.5-14.5)
[2018-03-22 06:14] LABS: ADD MAN DIFF? YES
[2018-03-22 06:16] LABS: MAGNESIUM 1.7 mg/dl (1.7-2.5)
[2018-03-22 06:28] LABS: ALANINE AMINOTRANSFERASE 36 IU/L (13-69); ALBUMIN 2.7 g/dl (3.3-4.9); ALBUMIN/GLOBULIN RATIO 0.72; ALKALINE PHOSPHATASE 119 IU/L (42-121); ANION GAP 15 (8-16); ASPARTATE AMINO TRANSFERASE 89 IU/L (15-46); BILIRUBIN,INDIRECT 0.5 mg/dl (0-1.1); BILIRUBIN,TOTAL 0.5 mg/dl (0.2-1.3); BLOOD UREA NITROGEN 18 mg/dl (7-20); CALCIUM 8.4 mg/dl (8.4-10.2); CARBON DIOXIDE 26 mmol/L (21-31); CHLORIDE 104 mmol/L (97-110); CREATININE 1.11 mg/dl (0.61-1.24); GLUCOSE 158 mg/dl (70-220); POTASSIUM 3.6 mmol/L (3.5-5.1); SODIUM 141 mmol/L (135-144); TOTAL PROTEIN 6.4 g/dl (6.1-8.1)
[2018-03-22 08:25] LABS: BAND NEUTROPHILS % (M) 37 % (0-4); GIANT THROMBO% (M) 2 % (0-0); LYMPHOCYTES #M 0.3 10^3/ul (0.8-2.9); LYMPHOCYTES % (M) 3 % (15-51); MONOCYTE #M 1.3 10^3/ul (0.3-0.9); MONOCYTES % (M) 12 % (0-11); PLATELET ESTIMATE NORMAL; POLYCHROMASIA 1+ (0-0); SEG NEUT #M 5.7 10^3/ul (1.6-7.5); SEGMENTED NEUTROPHILS (M) % 48 % (39-77); SMUDGE%M 3 % (0-0)
[2018-03-22] MEDS: ASPIRIN 81 MG TAB NGT (08:51)
[2018-03-22] MEDS: CEFEPIME 1GM/50 ML (PMX) 50 ML IVPB (10:00)
[2018-03-22] MEDS ORDERED: VANCOMYCIN IV PER PHARMACY XX (10:00)
[2018-03-22 10:59] LABS: AADO2 Arterial 281.2 mmHg (7.0-24.0); Allen Test ACCEPTAB; Arterial Base Excess 2.5 mmol/L (-3.0-3); Arterial Blood Gas Oxygen Sat 98.2 mmHG (95.0-98.0); Arterial COHb 0.2 % (0.0-3.0); Arterial Fraction of Oxyhgb 97.6 % (93.0-99.0); Arterial HCO3 25.8 mmol/L (22.0-26.0); Arterial MetHb 0.4 % (0.0-1.5); Arterial Total Hemglobin 10.7 g/dl (12.0-18.0); Arterial pCO2 35.5 mmhg (35-45); Blood Gas IEPAP 15/5; Blood Gas PS 10; MODE MASK - BIPAP; Site Right Radial
[2018-03-22] MEDS: VANCOMYCIN 1.75 GM in SOD CHLORIDE 0.9% 500 ML IVPB (13:00)
[2018-03-22] MEDS ORDERED: NORepinephrine 8MG/250 ML (PMX 0 ML (18:11)
[2018-03-22 18:36] LABS: Allen Test ACCEPTAB; Arterial Base Excess 4.1 mmol/L (-3.0-3); Arterial Blood Gas Oxygen Sat 94.1 mmHG (95.0-98.0); Arterial COHb 0.1 % (0.0-3.0); Arterial Fraction of Oxyhgb 93.8 % (93.0-99.0); Arterial HCO3 27.1 mmol/L (22.0-26.0); Arterial MetHb 0.2 % (0.0-1.5); Arterial Total Hemglobin 10.3 g/dl (12.0-18.0); Arterial pCO2 34.8 mmhg (35-45); MODE HFNC; Site Right Radial
[2018-03-23] MEDS: METOCLOPRAMIDE 10 MG INJ IV ×4 (00:36→22:00)
[2018-03-23] MEDS: VANCOMYCIN 750 MG in SOD CHLORIDE 0.9% 150 ML IVPB ×2 (00:39→12:34)
[2018-03-23] MEDS: INSULIN ASPART [NOVOLOG] 3 ML PEN SC ×6 (00:46→20:23)
[2018-03-23] MEDS: LORAZEPAM 2 MG INJ IV (01:56)
[2018-03-23 02:20] LABS: AADO2 Arterial 173.3 mmHg (7.0-24.0); Allen Test ACCEPTAB; Arterial Base Excess 4.4 mmol/L (-3.0-3); Arterial COHb 0.4 % (0.0-3.0); Arterial Fraction of Oxyhgb 93.4 % (93.0-99.0); Arterial HCO3 27.8 mmol/L (22.0-26.0); Arterial MetHb 0.2 % (0.0-1.5); Arterial Total Hemglobin 13.2 g/dl (12.0-18.0); Arterial pCO2 37.3 mmhg (35-45); Blood Gas IEPAP 15/5; MODE MASK - BIPAP; Site Left Radial
[2018-03-23] MEDS: PROPOFOL 100 ML IV ×2 (03:43→18:44)
[2018-03-23 05:15] LABS: ADD MAN DIFF? NO
[2018-03-23 05:20] LABS: WHITE BLOOD COUNT 6.7 10^3/ul (4.8-10.8)
[2018-03-23 05:20] LABS: BASOPHILS % 0.4 % (0.0-2.0); EOSINOPHILS % 0.6 % (0.0-7.0); HEMATOCRIT 26.4 % (42.0-52.0); HEMOGLOBIN 8.5 g/dl (14.0-18.0); LYMPHOCYTES % 14.4 % (15.0-51.0); MEAN CORPUSCULAR HEMOGLOBIN 32.3 pg (29.0-33.0); MEAN CORPUSCULAR HGB CONC 32.2 g/dl (32.0-37.0); MEAN CORPUSCULAR VOLUME 100.4 fl (82.0-101.0); MEAN PLATELET VOLUME 12.8 fl (7.4-10.4); MONOCYTES % 14.7 % (0.0-11.0); NEUTROPHIL # 4.7 10^3/ul (1.6-7.5); NEUTROPHILS % 69.3 % (39.0-77.0); PLATELET COUNT 147 10^3/UL (140-415); RED BLOOD COUNT 2.63 10^6/ul (4.70-6.10)
[2018-03-23] MEDS: FUROSEMIDE 40 MG INJ IV ×2 (05:23→18:45)
[2018-03-23] MEDS: PANTOPRAZOLE 40 MG INJ IV (05:23)
[2018-03-23 06:04] LABS: ALANINE AMINOTRANSFERASE 47 IU/L (13-69); ALBUMIN 2.5 g/dl (3.3-4.9); ALBUMIN/GLOBULIN RATIO 0.73; ALKALINE PHOSPHATASE 106 IU/L (42-121); ANION GAP 9 (8-16); ASPARTATE AMINO TRANSFERASE 109 IU/L (15-46); BILIRUBIN,INDIRECT 0.4 mg/dl (0-1.1); BILIRUBIN,TOTAL 0.4 mg/dl (0.2-1.3); BLOOD UREA NITROGEN 26 mg/dl (7-20); CALCIUM 8.3 mg/dl (8.4-10.2); CARBON DIOXIDE 32 mmol/L (21-31); CHLORIDE 106 mmol/L (97-110); CREATININE 1.21 mg/dl (0.61-1.24); GLUCOSE 202 mg/dl (70-220); POTASSIUM 3.5 mmol/L (3.5-5.1); SODIUM 143 mmol/L (135-144); TOTAL PROTEIN 5.9 g/dl (6.1-8.1)
[2018-03-23 06:34] LABS: PHOSPHORUS 2.4 mg/dl (2.5-4.9)
[2018-03-23 06:34] LABS: MAGNESIUM 1.9 mg/dl (1.7-2.5)
[2018-03-23] MEDS: ASPIRIN 81 MG TAB NGT (08:27)
[2018-03-23] MEDS: CEFEPIME 1GM/50 ML (PMX) 50 ML IVPB ×2 (08:27→20:26)
[2018-03-23] MEDS ORDERED: ROCURONIUM BROMIDE 10 MG/ML VIAL (09:00)
[2018-03-23] MEDS ORDERED: ETOMIDATE 20 MG INJ (09:00)
[2018-03-23] MEDS: MAGNESIUM SULFATE 2 GM/50 ML 50 ML IVPB (09:11)
[2018-03-23] MEDS: POTASSIUM PHOSPHATE 30 MM in SOD CHLORIDE 0.9% 250 ML IVPB (11:12)
[2018-03-23] MEDS ORDERED: INSULIN ASPART [NOVOLOG] 3 ML PEN SC (11:30)
[2018-03-23] MEDS ORDERED: PROPOFOL 100 ML (18:37)
[2018-03-23 19:12] LABS: AADO2 Arterial 568.5 mmHg (7.0-24.0); Allen Test ACCEPTAB; Arterial Base Excess 0.8 mmol/L (-3.0-3); Arterial Blood Gas Oxygen Sat 92.5 mmHG (95.0-98.0); Arterial COHb 0.4 % (0.0-3.0); Arterial Fraction of Oxyhgb 91.9 % (93.0-99.0); Arterial HCO3 29.4 mmol/L (22.0-26.0); Arterial MetHb 0.2 % (0.0-1.5); Arterial Total Hemglobin 13.2 g/dl (12.0-18.0); Arterial pCO2 66.7 mmhg (35-45); MODE VENT - AC; Site Left Radial
[2018-03-23 19:21] LABS: ADD MAN DIFF? NO
[2018-03-23 19:23] LABS: ABNORMAL IP MESSAGE 1; BASOPHIL # 0.1 10^3/ul (0.0-0.1); BASOPHILS % 0.7 % (0.0-2.0); EOSINOPHILS # 0.2 10^3/ul (0.0-0.5); EOSINOPHILS % 1.3 % (0.0-7.0); HEMATOCRIT 32.6 % (42.0-52.0); HEMOGLOBIN 10.3 g/dl (14.0-18.0); LYMPHOCYTES # 1.9 10^3/ul (0.8-2.9); LYMPHOCYTES % 16.5 % (15.0-51.0); MEAN CORPUSCULAR HEMOGLOBIN 32.3 pg (29.0-33.0); MEAN CORPUSCULAR HGB CONC 31.6 g/dl (32.0-37.0); MEAN CORPUSCULAR VOLUME 102.2 fl (82.0-101.0); MEAN PLATELET VOLUME 13.1 fl (7.4-10.4); MONOCYTE # 1.1 10^3/ul (0.3-0.9); MONOCYTES % 10.1 % (0.0-11.0); NEUTROPHILS % 70.6 % (39.0-77.0); PLATELET COUNT 227 10^3/UL (140-415); POSITIVE DIFF @See below; RED BLOOD COUNT 3.19 10^6/ul (4.70-6.10); RED CELL DISTRIBUTION WIDTH 13.4 % (11.5-14.5)
[2018-03-23 19:23] LABS: WHITE BLOOD COUNT 11.3 10^3/ul (4.8-10.8)
[2018-03-23] MEDS: FENTAnyl (DRIP) 1000 mcg/100mL 100 ML IV (19:38)
[2018-03-23 19:43] LABS: CREATINE KINASE 206 IU/L (23-200)
[2018-03-23 19:44] LABS: ANION GAP 11 (8-16); BLOOD UREA NITROGEN 32 mg/dl (7-20); CALCIUM 8.7 mg/dl (8.4-10.2); CARBON DIOXIDE 33 mmol/L (21-31); CHLORIDE 104 mmol/L (97-110); CREATININE 1.22 mg/dl (0.61-1.24); GLUCOSE 267 mg/dl (70-220); MAGNESIUM 2.5 mg/dl (1.7-2.5); POTASSIUM 3.6 mmol/L (3.5-5.1); SODIUM 144 mmol/L (135-144)
[2018-03-23 19:51] LABS: INR 1.13; PROTIME 14.7 Sec (11.9-14.9); PT RATIO 1.1
[2018-03-23 19:52] LABS: PARTIAL THROMBOPLASTIN TIME 32.5 Sec (23.0-35.0)
[2018-03-23 19:56] LABS: CK INDEX 2.8; CK-MB 5.82 ng/ml (0.0-2.4)
[2018-03-23] MEDS: SOD CHLORIDE 0.9% 500 ML IV (23:46)
[2018-03-23] MEDS: NORepinephrine 8MG/250 ML (PMX 250 ML IV (23:48)
[2018-03-24] MEDS: PROPOFOL 100 ML IV ×4 (00:31→21:30)
[2018-03-24] MEDS: INSULIN ASPART [NOVOLOG] 3 ML PEN SC ×6 (01:00→20:20)
[2018-03-24 01:03] LABS: VANCOMYCIN,TROUGH 13.1 ug/ml (10.0-20.0)
[2018-03-24] MEDS: VANCOMYCIN 750 MG in SOD CHLORIDE 0.9% 150 ML IVPB ×2 (01:54→13:21)
[2018-03-24] MEDS: ACCU-CHEK XX (01:55)
[2018-03-24 05:03] LABS: AADO2 Arterial 224.5 mmHg (7.0-24.0); Allen Test ACCEPTAB; Arterial Base Excess 3.2 mmol/L (-3.0-3); Arterial Blood Gas Oxygen Sat 98.9 mmHG (95.0-98.0); Arterial COHb 0.3 % (0.0-3.0); Arterial Fraction of Oxyhgb 98.5 % (93.0-99.0); Arterial HCO3 27.6 mmol/L (22.0-26.0); Arterial MetHb 0.1 % (0.0-1.5); Arterial Total Hemglobin 9.8 g/dl (12.0-18.0); Arterial pCO2 41.3 mmhg (35-45); MODE VENT - AC; Site Left Radial
[2018-03-24 05:23] LABS: ADD MAN DIFF? NO
[2018-03-24 05:37] LABS: WHITE BLOOD COUNT 8.6 10^3/ul (4.8-10.8)
[2018-03-24 05:37] LABS: ABNORMAL IP MESSAGE 1; BASOPHIL # 0.1 10^3/ul (0.0-0.1); BASOPHILS % 0.6 % (0.0-2.0); EOSINOPHILS # 0.2 10^3/ul (0.0-0.5); EOSINOPHILS % 2.3 % (0.0-7.0); HEMATOCRIT 30.7 % (42.0-52.0); HEMOGLOBIN 9.7 g/dl (14.0-18.0); LYMPHOCYTES # 1.3 10^3/ul (0.8-2.9); LYMPHOCYTES % 15.4 % (15.0-51.0); MEAN CORPUSCULAR HEMOGLOBIN 32.6 pg (29.0-33.0); MEAN CORPUSCULAR HGB CONC 31.6 g/dl (32.0-37.0); MEAN PLATELET VOLUME 13.7 fl (7.4-10.4); MONOCYTES % 11.3 % (0.0-11.0); NEUTROPHILS % 69.5 % (39.0-77.0); PLATELET COUNT 191 10^3/UL (140-415); POSITIVE DIFF @See below; RED BLOOD COUNT 2.98 10^6/ul (4.70-6.10); RED CELL DISTRIBUTION WIDTH 13.5 % (11.5-14.5)
[2018-03-24] MEDS: PANTOPRAZOLE 40 MG INJ IV (05:56)
[2018-03-24] MEDS: METOCLOPRAMIDE 10 MG INJ IV ×3 (05:57→22:24)
[2018-03-24] MEDS: FUROSEMIDE 40 MG INJ IV ×2 (05:57→16:06)
[2018-03-24 06:02] LABS: MAGNESIUM 2.3 mg/dl (1.7-2.5)
[2018-03-24 06:02] LABS: PHOSPHORUS 4.1 mg/dl (2.5-4.9)
[2018-03-24 06:26] LABS: ALBUMIN/GLOBULIN RATIO 0.85; ALKALINE PHOSPHATASE 109 IU/L (42-121); ASPARTATE AMINO TRANSFERASE 97 IU/L (15-46); BILIRUBIN,INDIRECT 0.3 mg/dl (0-1.1); BILIRUBIN,TOTAL 0.3 mg/dl (0.2-1.3); BLOOD UREA NITROGEN 33 mg/dl (7-20); CALCIUM 8.2 mg/dl (8.4-10.2); CARBON DIOXIDE 34 mmol/L (21-31); CHLORIDE 110 mmol/L (97-110); CREATININE 1.27 mg/dl (0.61-1.24); GLUCOSE 162 mg/dl (70-220); POTASSIUM 3.9 mmol/L (3.5-5.1); TOTAL PROTEIN 6.5 g/dl (6.1-8.1)
[2018-03-24 07:08] LABS: ALANINE AMINOTRANSFERASE 52 IU/L (13-69); ANION GAP 6 (8-16); SODIUM 146 mmol/L (135-144)
[2018-03-24] MEDS: CEFEPIME 1GM/50 ML (PMX) 50 ML IVPB ×2 (08:35→20:14)
[2018-03-24] MEDS: ASPIRIN 81 MG TAB NGT (08:41)
[2018-03-24] MEDS: LIDOCAINE 1% (MPF) 5 ML VIAL SC (12:20)
[2018-03-24 12:46] LABS: CREATINE KINASE 129 IU/L (23-200)
[2018-03-24 12:59] LABS: CK INDEX 2.9; CK-MB 3.68 ng/ml (0.0-2.4)
[2018-03-24] MEDS: NORepinephrine 8MG/250 ML (PMX 250 ML IV (15:20)
[2018-03-24] MEDS: ACETAMINOPHEN 650MG/20.3ML CUP PO (16:12)
[2018-03-24 19:27] LABS: CREATINE KINASE 102 IU/L (23-200)
[2018-03-24 19:39] LABS: CK INDEX 2.6; CK-MB 2.64 ng/ml (0.0-2.4)
[2018-03-25] MEDS: VANCOMYCIN 750 MG in SOD CHLORIDE 0.9% 150 ML IVPB ×2 (00:55→13:19)
[2018-03-25] MEDS: ACCU-CHEK XX (02:00)
[2018-03-25] MEDS: INSULIN ASPART [NOVOLOG] 3 ML PEN SC ×6 (02:27→20:34)
[2018-03-25] MEDS: PROPOFOL 100 ML IV ×4 (03:00→23:01)
[2018-03-25 05:20] LABS: ADD MAN DIFF? NO
[2018-03-25] MEDS: PANTOPRAZOLE 40 MG INJ IV (05:21)
[2018-03-25] MEDS: METOCLOPRAMIDE 10 MG INJ IV ×3 (05:21→21:23)
[2018-03-25 05:26] LABS: WHITE BLOOD COUNT 9.3 10^3/ul (4.8-10.8)
[2018-03-25 05:26] LABS: ABNORMAL IP MESSAGE 1; BASOPHIL # 0.1 10^3/ul (0.0-0.1); BASOPHILS % 0.8 % (0.0-2.0); EOSINOPHILS # 0.3 10^3/ul (0.0-0.5); HEMATOCRIT 27.3 % (42.0-52.0); HEMOGLOBIN 8.6 g/dl (14.0-18.0); LYMPHOCYTES # 1.7 10^3/ul (0.8-2.9); LYMPHOCYTES % 18.3 % (15.0-51.0); MEAN CORPUSCULAR HEMOGLOBIN 32.6 pg (29.0-33.0); MEAN CORPUSCULAR HGB CONC 31.5 g/dl (32.0-37.0); MEAN CORPUSCULAR VOLUME 103.4 fl (82.0-101.0); MEAN PLATELET VOLUME 13.2 fl (7.4-10.4); MONOCYTES % 10.8 % (0.0-11.0); NEUTROPHIL # 6.2 10^3/ul (1.6-7.5); NEUTROPHILS % 66.2 % (39.0-77.0); PLATELET COUNT 221 10^3/UL (140-415); POSITIVE DIFF @See below; RED BLOOD COUNT 2.64 10^6/ul (4.70-6.10); RED CELL DISTRIBUTION WIDTH 13.7 % (11.5-14.5)
[2018-03-25 05:42] LABS: BLOOD UREA NITROGEN 33 mg/dl (7-20); CALCIUM 8.4 mg/dl (8.4-10.2); CARBON DIOXIDE 36 mmol/L (21-31); CHLORIDE 108 mmol/L (97-110); CREATININE 1.14 mg/dl (0.61-1.24); GLUCOSE 166 mg/dl (70-220); POTASSIUM 3.7 mmol/L (3.5-5.1); SODIUM 147 mmol/L (135-144)
[2018-03-25 05:45] LABS: PHOSPHORUS 3.8 mg/dl (2.5-4.9)
[2018-03-25] MEDS: FUROSEMIDE 40 MG INJ IV (08:20)
[2018-03-25] MEDS: CEFEPIME 1GM/50 ML (PMX) 50 ML IVPB ×2 (08:21→20:31)
[2018-03-25] MEDS: ASPIRIN 81 MG TAB NGT (08:21)
[2018-03-25 09:11] LABS: ANION GAP 3 (5-13)
[2018-03-25] MEDS ORDERED: POTASSIUM CHLORIDE (SR) 20 MEQ TAB PO (09:44)
[2018-03-25] MEDS: POTASSIUM CHLORIDE 20 MEQ POWDER FOR ORAL SOLN NGT (10:24)
[2018-03-26] MEDS: INSULIN ASPART [NOVOLOG] 3 ML PEN SC ×6 (01:00→20:46)
[2018-03-26] MEDS: VANCOMYCIN 750 MG in SOD CHLORIDE 0.9% 150 ML IVPB ×2 (01:27→13:34)
[2018-03-26] MEDS: ACCU-CHEK XX (01:28)
[2018-03-26] MEDS: PANTOPRAZOLE 40 MG INJ IV (05:17)
[2018-03-26] MEDS: METOCLOPRAMIDE 10 MG INJ IV ×3 (05:17→21:21)
[2018-03-26 05:26] LABS: ADD MAN DIFF? NO
[2018-03-26 05:30] LABS: WHITE BLOOD COUNT 8.2 10^3/ul (4.8-10.8)
[2018-03-26 05:30] LABS: ABNORMAL IP MESSAGE 1; BASOPHIL # 0.1 10^3/ul (0.0-0.1); BASOPHILS % 0.7 % (0.0-2.0); EOSINOPHILS # 0.2 10^3/ul (0.0-0.5); EOSINOPHILS % 2.8 % (0.0-7.0); HEMATOCRIT 25.2 % (42.0-52.0); LYMPHOCYTES # 1.5 10^3/ul (0.8-2.9); LYMPHOCYTES % 18.5 % (15.0-51.0); MEAN CORPUSCULAR HEMOGLOBIN 32.8 pg (29.0-33.0); MEAN CORPUSCULAR HGB CONC 31.7 g/dl (32.0-37.0); MEAN CORPUSCULAR VOLUME 103.3 fl (82.0-101.0); MEAN PLATELET VOLUME 13.8 fl (7.4-10.4); MONOCYTE # 0.8 10^3/ul (0.3-0.9); NEUTROPHIL # 5.5 10^3/ul (1.6-7.5); NEUTROPHILS % 67.1 % (39.0-77.0); PLATELET COUNT 209 10^3/UL (140-415); POSITIVE DIFF @See below; RED BLOOD COUNT 2.44 10^6/ul (4.70-6.10); RED CELL DISTRIBUTION WIDTH 13.7 % (11.5-14.5)
[2018-03-26 06:03] LABS: ANION GAP 2 (5-13); BLOOD UREA NITROGEN 29 mg/dl (7-20); CALCIUM 8.4 mg/dl (8.4-10.2); CARBON DIOXIDE 37 mmol/L (21-31); CHLORIDE 109 mmol/L (97-110); GLUCOSE 157 mg/dl (70-220); PHOSPHORUS 3.5 mg/dl (2.5-4.9); POTASSIUM 3.8 mmol/L (3.5-5.1); SODIUM 148 mmol/L (135-144)
[2018-03-26] MEDS ORDERED: ETOMIDATE 20 MG INJ (07:00)
[2018-03-26] MEDS ORDERED: SUCCINYLCHOLINE CHLORIDE 100 MG/5 ML SYG IV (07:00)
[2018-03-26 08:13] LABS: AADO2 Arterial 154.1 mmHg (7.0-24.0); Allen Test ACCEPTAB; Arterial Base Excess 7.1 mmol/L (-3.0-3); Arterial Blood Gas Oxygen Sat 96.3 mmHG (95.0-98.0); Arterial COHb 0.3 % (0.0-3.0); Arterial Fraction of Oxyhgb 95.8 % (93.0-99.0); Arterial HCO3 31.1 mmol/L (22.0-26.0); Arterial MetHb 0.2 % (0.0-1.5); Arterial Total Hemglobin 8.9 g/dl (12.0-18.0); Arterial pCO2 41.4 mmhg (35-45); MODE VENT - AC; Site Right Radial
[2018-03-26] MEDS: PROPOFOL 100 ML IV (08:49)
[2018-03-26] MEDS: ASPIRIN 81 MG TAB NGT (08:50)
[2018-03-26] MEDS: FUROSEMIDE 40 MG INJ IV (08:50)
[2018-03-26] MEDS: CLOPIDOGREL 75 MG TAB PO (08:50)
[2018-03-26] MEDS: CEFEPIME 1GM/50 ML (PMX) 50 ML IVPB (08:50)
[2018-03-26] MEDS: POTASSIUM CHLORIDE 100 ML IVPB (11:31)
[2018-03-26] MEDS: ACETAZOLAMIDE 500 MG INJ IV (11:36)
[2018-03-26 12:42] LABS: CREATINE KINASE 406 IU/L (23-200)
[2018-03-26 12:46] LABS: VANCOMYCIN,TROUGH 15.1 ug/ml (10.0-20.0)
[2018-03-26 12:52] LABS: CK INDEX 0.3; CK-MB 1.32 ng/ml (0.0-2.4)
[2018-03-26 13:15] LABS: AADO2 Arterial 169.5 mmHg (7.0-24.0); Allen Test ACCEPTAB; Arterial Base Excess 5.9 mmol/L (-3.0-3); Arterial Blood Gas Oxygen Sat 94.5 mmHG (95.0-98.0); Arterial COHb 0.1 % (0.0-3.0); Arterial Fraction of Oxyhgb 94.3 % (93.0-99.0); Arterial HCO3 29.2 mmol/L (22.0-26.0); Arterial MetHb 0.1 % (0.0-1.5); Arterial Total Hemglobin 9.5 g/dl (12.0-18.0); Arterial pCO2 37.4 mmhg (35-45); Blood Gas PS 10; MODE VENT - CPAP; Site Right Radial
[2018-03-26] MEDS: NORepinephrine 8MG/250 ML (PMX 250 ML IV (19:34)
[2018-03-26 20:50] LABS: AADO2 Arterial 138.4 mmHg (7.0-24.0); Allen Test ACCEPTAB; Arterial Base Excess 7.9 mmol/L (-3.0-3); Arterial Blood Gas Oxygen Sat 97.5 mmHG (95.0-98.0); Arterial COHb 0.3 % (0.0-3.0); Arterial Fraction of Oxyhgb 96.9 % (93.0-99.0); Arterial HCO3 31.6 mmol/L (22.0-26.0); Arterial MetHb 0.3 % (0.0-1.5); Arterial Total Hemglobin 10.7 g/dl (12.0-18.0); Arterial pCO2 40.6 mmhg (35-45); MODE VENT - AC; Site Right Radial
[2018-03-27] MEDS: ACETAMINOPHEN 650MG/20.3ML CUP PO (00:33)
[2018-03-27] MEDS: VANCOMYCIN 750 MG in SOD CHLORIDE 0.9% 150 ML IVPB ×2 (00:33→14:32)
[2018-03-27] MEDS: ACCU-CHEK XX (02:03)
[2018-03-27] MEDS: INSULIN ASPART [NOVOLOG] 3 ML PEN SC ×6 (02:05→21:23)
[2018-03-27] MEDS: PROPOFOL 100 ML IV ×3 (02:42→22:12)
[2018-03-27] MEDS: FENTAnyl (DRIP) 1000 mcg/100mL 100 ML IV (02:58)
[2018-03-27 04:45] LABS: ADD MAN DIFF? NO
[2018-03-27 04:47] LABS: ABNORMAL IP MESSAGE 1; BASOPHIL # 0.1 10^3/ul (0.0-0.1); BASOPHILS % 0.8 % (0.0-2.0); EOSINOPHILS # 0.2 10^3/ul (0.0-0.5); EOSINOPHILS % 1.7 % (0.0-7.0); HEMATOCRIT 25.6 % (42.0-52.0); LYMPHOCYTES # 1.7 10^3/ul (0.8-2.9); LYMPHOCYTES % 15.1 % (15.0-51.0); MEAN CORPUSCULAR HEMOGLOBIN 32.5 pg (29.0-33.0); MEAN CORPUSCULAR HGB CONC 31.3 g/dl (32.0-37.0); MEAN CORPUSCULAR VOLUME 104.1 fl (82.0-101.0); MEAN PLATELET VOLUME 13.5 fl (7.4-10.4); NEUTROPHIL # 8.3 10^3/ul (1.6-7.5); NEUTROPHILS % 72.5 % (39.0-77.0); PLATELET COUNT 260 10^3/UL (140-415); POSITIVE DIFF @See below; RED BLOOD COUNT 2.46 10^6/ul (4.70-6.10); RED CELL DISTRIBUTION WIDTH 13.8 % (11.5-14.5)
[2018-03-27 04:47] LABS: WHITE BLOOD COUNT 11.5 10^3/ul (4.8-10.8)
[2018-03-27 05:07] LABS: PHOSPHORUS 4.4 mg/dl (2.5-4.9)
[2018-03-27 05:07] LABS: MAGNESIUM 2.1 mg/dl (1.7-2.5)
[2018-03-27 05:08] LABS: ANION GAP 5 (5-13); BLOOD UREA NITROGEN 28 mg/dl (7-20); CALCIUM 8.6 mg/dl (8.4-10.2); CARBON DIOXIDE 34 mmol/L (21-31); CHLORIDE 110 mmol/L (97-110); CREATININE 1.31 mg/dl (0.61-1.24); GLUCOSE 157 mg/dl (70-220); POTASSIUM 3.6 mmol/L (3.5-5.1); SODIUM 149 mmol/L (135-144)
[2018-03-27] MEDS: PANTOPRAZOLE 40 MG INJ IV (05:13)
[2018-03-27] MEDS: METOCLOPRAMIDE 10 MG INJ IV ×3 (05:13→21:18)
[2018-03-27] MEDS: ASPIRIN 81 MG TAB NGT (08:05)
[2018-03-27] MEDS: CLOPIDOGREL 75 MG TAB PO (08:05)
[2018-03-27 08:43] LABS: Allen Test ACCEPTAB; Arterial Base Excess 6.9 mmol/L (-3.0-3); Arterial COHb 0.3 % (0.0-3.0); Arterial Fraction of Oxyhgb 93.4 % (93.0-99.0); Arterial HCO3 30.8 mmol/L (22.0-26.0); Arterial MetHb 0.3 % (0.0-1.5); Arterial pCO2 41.5 mmhg (35-45); MODE VENT - AC; Site Right Radial
[2018-03-27] MEDS ORDERED: MEROPENEM 500MG/50 ML (PMX) 50 ML IVPB (14:00)
[2018-03-27 14:18] LABS: CREATINE KINASE 219 IU/L (23-200)
[2018-03-27 14:30] LABS: CK INDEX 0.3; CK-MB 0.62 ng/ml (0.0-2.4)
[2018-03-27] MEDS: MEROPENEM 1 GM/50ML(PMX) 50 ML IVPB ×2 (16:51→22:11)
[2018-03-27] MEDS: SACCHAROMYCES BOULARDII 250 MG CAP PO (21:18)
[2018-03-28] MEDS: VANCOMYCIN 750 MG in SOD CHLORIDE 0.9% 150 ML IVPB ×2 (00:53→13:28)
[2018-03-28] MEDS: INSULIN ASPART [NOVOLOG] 3 ML PEN SC ×6 (01:00→21:00)
[2018-03-28] MEDS: ACCU-CHEK XX (02:15)
[2018-03-28] MEDS: PROPOFOL 100 ML IV ×2 (03:56→20:58)
[2018-03-28 04:51] LABS: ADD MAN DIFF? NO
[2018-03-28 04:56] LABS: ABNORMAL IP MESSAGE 1; BASOPHIL # 0.1 10^3/ul (0.0-0.1); BASOPHILS % 0.7 % (0.0-2.0); EOSINOPHILS # 0.4 10^3/ul (0.0-0.5); EOSINOPHILS % 3.9 % (0.0-7.0); HEMATOCRIT 25.3 % (42.0-52.0); HEMOGLOBIN 7.8 g/dl (14.0-18.0); LYMPHOCYTES # 1.7 10^3/ul (0.8-2.9); LYMPHOCYTES % 17.6 % (15.0-51.0); MEAN CORPUSCULAR HEMOGLOBIN 32.2 pg (29.0-33.0); MEAN CORPUSCULAR HGB CONC 30.8 g/dl (32.0-37.0); MEAN CORPUSCULAR VOLUME 104.5 fl (82.0-101.0); MEAN PLATELET VOLUME 13.2 fl (7.4-10.4); MONOCYTE # 0.8 10^3/ul (0.3-0.9); NEUTROPHIL # 6.6 10^3/ul (1.6-7.5); PLATELET COUNT 253 10^3/UL (140-415); POSITIVE DIFF @See below; RED BLOOD COUNT 2.42 10^6/ul (4.70-6.10); RED CELL DISTRIBUTION WIDTH 13.6 % (11.5-14.5)
[2018-03-28 04:56] LABS: WHITE BLOOD COUNT 9.6 10^3/ul (4.8-10.8)
[2018-03-28 05:02] LABS: AADO2 Arterial 161.3 mmHg (7.0-24.0); Allen Test ACCEPTAB; Arterial Base Excess 7.1 mmol/L (-3.0-3); Arterial Blood Gas Oxygen Sat 95.6 mmHG (95.0-98.0); Arterial COHb 0.6 % (0.0-3.0); Arterial Fraction of Oxyhgb 94.8 % (93.0-99.0); Arterial HCO3 30.9 mmol/L (22.0-26.0); Arterial MetHb 0.2 % (0.0-1.5); Arterial pCO2 40.8 mmhg (35-45); MODE VENT - AC; Site Right Radial
[2018-03-28 05:13] LABS: ANION GAP 5 (5-13); BLOOD UREA NITROGEN 26 mg/dl (7-20); CALCIUM 8.4 mg/dl (8.4-10.2); CARBON DIOXIDE 32 mmol/L (21-31); CHLORIDE 112 mmol/L (97-110); CREATININE 1.25 mg/dl (0.61-1.24); GLUCOSE 130 mg/dl (70-220); POTASSIUM 3.5 mmol/L (3.5-5.1); SODIUM 149 mmol/L (135-144)
[2018-03-28] MEDS: PANTOPRAZOLE 40 MG INJ IV (05:50)
[2018-03-28] MEDS: METOCLOPRAMIDE 10 MG INJ IV ×3 (05:50→21:57)
[2018-03-28] MEDS: MEROPENEM 1 GM/50ML(PMX) 50 ML IVPB ×2 (08:17→21:08)
[2018-03-28] MEDS: SACCHAROMYCES BOULARDII 250 MG CAP PO ×2 (08:18→20:58)
[2018-03-28] MEDS: CLOPIDOGREL 75 MG TAB PO (08:18)
[2018-03-28] MEDS: ASPIRIN 81 MG TAB NGT (08:18)
[2018-03-28] MEDS: NORepinephrine 8MG/250 ML (PMX 250 ML IV (09:50)
[2018-03-28] MEDS: IODIXANOL LOCM 100 ML BTL (15:29)
[2018-03-28] MEDS: SOD CHLORIDE 0.9% 100 ML (15:29)
[2018-03-28 21:34] LABS: IMMEDIATE SPIN CROSSMATCH 1 1
[2018-03-29] MEDS: INSULIN ASPART [NOVOLOG] 3 ML PEN SC ×6 (01:00→21:00)
[2018-03-29] MEDS: VANCOMYCIN 750 MG in SOD CHLORIDE 0.9% 150 ML IVPB (01:30)
[2018-03-29] MEDS: ACCU-CHEK XX (02:28)
[2018-03-29] MEDS: FENTAnyl (DRIP) 1000 mcg/100mL 100 ML IV (03:00)
[2018-03-29 05:06] LABS: ADD MAN DIFF? NO
[2018-03-29 05:08] LABS: BASOPHIL # 0.1 10^3/ul (0.0-0.1); EOSINOPHILS # 0.4 10^3/ul (0.0-0.5); EOSINOPHILS % 5.3 % (0.0-7.0); HEMATOCRIT 28.7 % (42.0-52.0); HEMOGLOBIN 8.9 g/dl (14.0-18.0); LYMPHOCYTES # 1.7 10^3/ul (0.8-2.9); LYMPHOCYTES % 20.2 % (15.0-51.0); MEAN CORPUSCULAR HEMOGLOBIN 30.7 pg (29.0-33.0); MEAN PLATELET VOLUME 12.9 fl (7.4-10.4); MONOCYTE # 0.7 10^3/ul (0.3-0.9); MONOCYTES % 8.9 % (0.0-11.0); NEUTROPHIL # 5.2 10^3/ul (1.6-7.5); NEUTROPHILS % 63.7 % (39.0-77.0); PLATELET COUNT 269 10^3/UL (140-415); RED CELL DISTRIBUTION WIDTH 17.4 % (11.5-14.5)
[2018-03-29 05:08] LABS: WHITE BLOOD COUNT 8.2 10^3/ul (4.8-10.8)
[2018-03-29 05:34] LABS: ALANINE AMINOTRANSFERASE 40 IU/L (13-69); ALBUMIN 2.7 g/dl (3.3-4.9); ALBUMIN/GLOBULIN RATIO 0.71; ALKALINE PHOSPHATASE 88 IU/L (42-121); ANION GAP 6 (5-13); ASPARTATE AMINO TRANSFERASE 51 IU/L (15-46); BILIRUBIN,INDIRECT 0.3 mg/dl (0-1.1); BILIRUBIN,TOTAL 0.3 mg/dl (0.2-1.3); BLOOD UREA NITROGEN 24 mg/dl (7-20); CALCIUM 8.3 mg/dl (8.4-10.2); CARBON DIOXIDE 30 mmol/L (21-31); CHLORIDE 113 mmol/L (97-110); CREATININE 1.13 mg/dl (0.61-1.24); GLUCOSE 116 mg/dl (70-220); POTASSIUM 3.7 mmol/L (3.5-5.1); SODIUM 149 mmol/L (135-144); TOTAL PROTEIN 6.5 g/dl (6.1-8.1)
[2018-03-29 05:35] LABS: Allen Test ACCEPTAB; Arterial Base Excess 4.8 mmol/L (-3.0-3); Arterial COHb 0.5 % (0.0-3.0); Arterial Fraction of Oxyhgb 92.4 % (93.0-99.0); Arterial HCO3 28.3 mmol/L (22.0-26.0); Arterial MetHb 0.1 % (0.0-1.5); Arterial Total Hemglobin 9.8 g/dl (12.0-18.0); Arterial pCO2 37.4 mmhg (35-45); MODE VENT - AC; Site Right Radial
[2018-03-29] MEDS: PANTOPRAZOLE 40 MG INJ IV (05:40)
[2018-03-29] MEDS: METOCLOPRAMIDE 10 MG INJ IV ×3 (05:40→21:19)
[2018-03-29] MEDS: SACCHAROMYCES BOULARDII 250 MG CAP PO ×2 (08:36→21:19)
[2018-03-29] MEDS: MEROPENEM 1 GM/50ML(PMX) 50 ML IVPB ×2 (08:36→21:19)
[2018-03-29] MEDS: ASPIRIN 81 MG TAB NGT (08:37)
[2018-03-29] MEDS: CLOPIDOGREL 75 MG TAB PO (08:37)
[2018-03-29] MEDS: PROPOFOL 100 ML IV ×2 (10:27→16:36)
[2018-03-29] MEDS: FUROSEMIDE 40 MG INJ IV (11:16)
[2018-03-29] MEDS: BALSAM PERU/CASTOR OIL 60 GM TUBE TOP ×2 (11:16→21:20)
[2018-03-29 12:54] LABS: VANCOMYCIN,TROUGH 20.2 ug/ml (10.0-20.0)
[2018-03-29] MEDS ORDERED: VANCOMYCIN 1.25 GM in SOD CHLORIDE 0.9% 250 ML IVPB (15:30)
[2018-03-30] MEDS: VANCOMYCIN 1.25 GM in SOD CHLORIDE 0.9% 250 ML IVPB (01:00)
[2018-03-30] MEDS: INSULIN ASPART [NOVOLOG] 3 ML PEN SC ×6 (01:00→21:00)
[2018-03-30] MEDS: ACCU-CHEK XX (02:00)
[2018-03-30] MEDS: PROPOFOL 100 ML IV ×3 (03:15→16:24)
[2018-03-30] MEDS: FENTAnyl (DRIP) 1000 mcg/100mL 100 ML IV (03:17)
[2018-03-30 05:05] LABS: ADD MAN DIFF? NO
[2018-03-30 05:16] LABS: ABNORMAL IP MESSAGE 1; BASOPHIL # 0.1 10^3/ul (0.0-0.1); BASOPHILS % 0.7 % (0.0-2.0); EOSINOPHILS # 0.3 10^3/ul (0.0-0.5); EOSINOPHILS % 4.4 % (0.0-7.0); HEMATOCRIT 30.9 % (42.0-52.0); HEMOGLOBIN 9.5 g/dl (14.0-18.0); LYMPHOCYTES # 1.7 10^3/ul (0.8-2.9); LYMPHOCYTES % 24.1 % (15.0-51.0); MEAN CORPUSCULAR HEMOGLOBIN 30.6 pg (29.0-33.0); MEAN CORPUSCULAR HGB CONC 30.7 g/dl (32.0-37.0); MEAN CORPUSCULAR VOLUME 99.7 fl (82.0-101.0); MEAN PLATELET VOLUME 13.7 fl (7.4-10.4); MONOCYTE # 0.7 10^3/ul (0.3-0.9); MONOCYTES % 9.1 % (0.0-11.0); NEUTROPHIL # 4.3 10^3/ul (1.6-7.5); NEUTROPHILS % 60.9 % (39.0-77.0); PLATELET COUNT 274 10^3/UL (140-415); POSITIVE DIFF @See below; RED CELL DISTRIBUTION WIDTH 16.8 % (11.5-14.5)
[2018-03-30 05:16] LABS: WHITE BLOOD COUNT 7.1 10^3/ul (4.8-10.8)
[2018-03-30 05:33] LABS: MAGNESIUM 2.1 mg/dl (1.7-2.5); PARTIAL THROMBOPLASTIN TIME 32.6 Sec (23.0-35.0)
[2018-03-30 05:33] LABS: PHOSPHORUS 4.8 mg/dl (2.5-4.9)
[2018-03-30 05:37] LABS: INR 1.05; PROTIME 13.8 Sec (11.9-14.9); PT RATIO 1.1
[2018-03-30 05:38] LABS: ALANINE AMINOTRANSFERASE 31 IU/L (13-69); ALBUMIN 2.5 g/dl (3.3-4.9); ALBUMIN/GLOBULIN RATIO 0.64; ALKALINE PHOSPHATASE 100 IU/L (42-121); ANION GAP 8 (5-13); ASPARTATE AMINO TRANSFERASE 63 IU/L (15-46); BILIRUBIN,INDIRECT 0.3 mg/dl (0-1.1); BILIRUBIN,TOTAL 0.3 mg/dl (0.2-1.3); BLOOD UREA NITROGEN 25 mg/dl (7-20); CALCIUM 8.6 mg/dl (8.4-10.2); CARBON DIOXIDE 29 mmol/L (21-31); CHLORIDE 111 mmol/L (97-110); CREATININE 1.11 mg/dl (0.61-1.24); GLUCOSE 98 mg/dl (70-220); POTASSIUM 3.6 mmol/L (3.5-5.1); SODIUM 148 mmol/L (135-144); TOTAL PROTEIN 6.4 g/dl (6.1-8.1)
[2018-03-30] MEDS: METOCLOPRAMIDE 10 MG INJ IV ×3 (05:43→21:33)
[2018-03-30] MEDS: PANTOPRAZOLE 40 MG INJ IV (05:43)
[2018-03-30] MEDS: POTASSIUM CHLORIDE 20 MEQ POWDER FOR ORAL SOLN NGT (08:04)
[2018-03-30] MEDS: FUROSEMIDE 40 MG INJ IV (08:04)
[2018-03-30] MEDS: MEROPENEM 1 GM/50ML(PMX) 50 ML IVPB ×2 (08:04→21:33)
[2018-03-30] MEDS: SACCHAROMYCES BOULARDII 250 MG CAP PO ×2 (08:04→21:33)
[2018-03-30] MEDS: BALSAM PERU/CASTOR OIL 60 GM TUBE TOP ×2 (09:54→21:43)
[2018-03-31] MEDS: PROPOFOL 100 ML IV ×4 (00:56→22:49)
[2018-03-31] MEDS: INSULIN ASPART [NOVOLOG] 3 ML PEN SC ×6 (01:00→21:00)
[2018-03-31] MEDS: VANCOMYCIN 1.25 GM in SOD CHLORIDE 0.9% 250 ML IVPB (01:04)
[2018-03-31] MEDS: FENTAnyl (DRIP) 1000 mcg/100mL 100 ML IV ×2 (01:10→20:32)
[2018-03-31] MEDS: ACCU-CHEK XX (01:14)
[2018-03-31 05:36] LABS: ADD MAN DIFF? NO
[2018-03-31 05:42] LABS: WHITE BLOOD COUNT 6.6 10^3/ul (4.8-10.8)
[2018-03-31 05:42] LABS: ABNORMAL IP MESSAGE 1; BASOPHILS % 0.6 % (0.0-2.0); EOSINOPHILS # 0.3 10^3/ul (0.0-0.5); EOSINOPHILS % 3.8 % (0.0-7.0); HEMATOCRIT 29.7 % (42.0-52.0); HEMOGLOBIN 9.2 g/dl (14.0-18.0); LYMPHOCYTES # 1.6 10^3/ul (0.8-2.9); LYMPHOCYTES % 23.7 % (15.0-51.0); MEAN CORPUSCULAR HEMOGLOBIN 30.7 pg (29.0-33.0); MEAN PLATELET VOLUME 13.7 fl (7.4-10.4); MONOCYTE # 0.6 10^3/ul (0.3-0.9); MONOCYTES % 8.9 % (0.0-11.0); NEUTROPHIL # 4.1 10^3/ul (1.6-7.5); NEUTROPHILS % 62.5 % (39.0-77.0); PLATELET COUNT 247 10^3/UL (140-415); POSITIVE DIFF @See below; RED CELL DISTRIBUTION WIDTH 16.4 % (11.5-14.5)
[2018-03-31] MEDS: PANTOPRAZOLE 40 MG INJ IV (06:10)
[2018-03-31] MEDS: METOCLOPRAMIDE 10 MG INJ IV ×3 (06:10→21:29)
[2018-03-31 06:11] LABS: PHOSPHORUS 4.9 mg/dl (2.5-4.9)
[2018-03-31 06:25] LABS: ANION GAP 7 (5-13); BLOOD UREA NITROGEN 25 mg/dl (7-20); CALCIUM 8.1 mg/dl (8.4-10.2); CARBON DIOXIDE 28 mmol/L (21-31); CHLORIDE 113 mmol/L (97-110); CREATININE 0.96 mg/dl (0.61-1.24); Estimated GFR > 60 mL/min (>60); GLUCOSE 102 mg/dl (70-220); POTASSIUM 3.5 mmol/L (3.5-5.1)
[2018-03-31 06:38] LABS: SODIUM 148 mmol/L (135-144)
[2018-03-31] MEDS: SACCHAROMYCES BOULARDII 250 MG CAP PO ×2 (08:00→21:28)
[2018-03-31] MEDS: BALSAM PERU/CASTOR OIL 60 GM TUBE TOP ×2 (08:00→21:29)
[2018-03-31] MEDS: MEROPENEM 1 GM/50ML(PMX) 50 ML IVPB ×2 (08:00→21:29)
[2018-03-31] MEDS: FUROSEMIDE 40 MG INJ IV (08:00)
[2018-03-31] MEDS: POTASSIUM CHLORIDE 20 MEQ POWDER FOR ORAL SOLN PEG (10:11)
[2018-03-31 10:46] LABS: PROCALCITONIN 0.67 ng/mL (<0.10)
[2018-03-31 12:33] LABS: CREATINE KINASE 79 IU/L (23-200)
[2018-03-31 12:46] LABS: CK INDEX 0.6; CK-MB 0.51 ng/ml (0.0-2.4)
[2018-03-31 12:48] LABS: TROPONIN-I 0.216 ng/ml (0.000-0.120)
[2018-03-31] MEDS: LIDOCAINE 1%/EPI 30 ML INJ (13:32)
[2018-03-31] MEDS: CASPOFUNGIN 70 MG in SOD CHLORIDE 0.9% 250 ML IVPB (15:06)
[2018-04-01] MEDS: INSULIN ASPART [NOVOLOG] 3 ML PEN SC ×6 (01:00→21:30)
[2018-04-01] MEDS: VANCOMYCIN 1.25 GM in SOD CHLORIDE 0.9% 250 ML IVPB (01:01)
[2018-04-01] MEDS: ACCU-CHEK XX (01:01)
[2018-04-01 05:02] LABS: ADD MAN DIFF? NO
[2018-04-01 05:09] LABS: ABNORMAL IP MESSAGE 1; BASOPHIL # 0.1 10^3/ul (0.0-0.1); BASOPHILS % 0.6 % (0.0-2.0); EOSINOPHILS # 0.3 10^3/ul (0.0-0.5); EOSINOPHILS % 2.8 % (0.0-7.0); LYMPHOCYTES # 1.8 10^3/ul (0.8-2.9); LYMPHOCYTES % 19.8 % (15.0-51.0); MEAN CORPUSCULAR HEMOGLOBIN 30.9 pg (29.0-33.0); MEAN CORPUSCULAR HGB CONC 31.3 g/dl (32.0-37.0); MEAN CORPUSCULAR VOLUME 98.8 fl (82.0-101.0); MEAN PLATELET VOLUME 13.6 fl (7.4-10.4); MONOCYTE # 0.8 10^3/ul (0.3-0.9); MONOCYTES % 8.7 % (0.0-11.0); NEUTROPHILS % 67.6 % (39.0-77.0); PLATELET COUNT 234 10^3/UL (140-415); POSITIVE DIFF @See below; RED BLOOD COUNT 3.24 10^6/ul (4.70-6.10); RED CELL DISTRIBUTION WIDTH 15.9 % (11.5-14.5)
[2018-04-01 05:09] LABS: WHITE BLOOD COUNT 8.9 10^3/ul (4.8-10.8)
[2018-04-01 05:28] LABS: ANION GAP 9 (5-13); BLOOD UREA NITROGEN 26 mg/dl (7-20); CALCIUM 8.6 mg/dl (8.4-10.2); CARBON DIOXIDE 28 mmol/L (21-31); CHLORIDE 109 mmol/L (97-110); CREATININE 0.94 mg/dl (0.61-1.24); Estimated GFR > 60 mL/min (>60); GLUCOSE 132 mg/dl (70-220); POTASSIUM 4.4 mmol/L (3.5-5.1); SODIUM 146 mmol/L (135-144)
[2018-04-01 05:30] LABS: PHOSPHORUS 4.5 mg/dl (2.5-4.9)
[2018-04-01] MEDS: METOCLOPRAMIDE 10 MG INJ IV ×3 (05:50→21:40)
[2018-04-01] MEDS: PANTOPRAZOLE 40 MG INJ IV (05:50)
[2018-04-01] MEDS: PROPOFOL 100 ML IV (06:07)
[2018-04-01] MEDS: FUROSEMIDE 40 MG INJ IV (08:40)
[2018-04-01] MEDS: SACCHAROMYCES BOULARDII 250 MG CAP PO ×2 (08:40→21:22)
[2018-04-01] MEDS: BALSAM PERU/CASTOR OIL 60 GM TUBE TOP ×2 (08:40→21:25)
[2018-04-01] MEDS: morphine 2 MG INJ IV ×2 (08:49→21:23)
[2018-04-01] MEDS: MEROPENEM 1 GM/50ML(PMX) 50 ML IVPB ×2 (08:50→21:22)
[2018-04-01] MEDS: ASPIRIN 81 MG TAB PO (14:07)
[2018-04-01] MEDS: CASPOFUNGIN 50 MG in SOD CHLORIDE 0.9% 250 ML IVPB (14:07)
[2018-04-01] MEDS: CEFAZOLIN 1 GM/50 ML (PMX) 50 ML IVPB (19:34)
[2018-04-02] MEDS: INSULIN ASPART [NOVOLOG] 3 ML PEN SC ×6 (01:00→21:00)
[2018-04-02] MEDS: VANCOMYCIN 1.25 GM in SOD CHLORIDE 0.9% 250 ML IVPB (01:21)
[2018-04-02] MEDS: ACCU-CHEK XX (01:29)
[2018-04-02] MEDS: morphine 2 MG INJ IV ×2 (01:29→11:32)
[2018-04-02 05:03] LABS: ADD MAN DIFF? NO
[2018-04-02 05:09] LABS: WHITE BLOOD COUNT 7.3 10^3/ul (4.8-10.8)
[2018-04-02 05:09] LABS: ABNORMAL IP MESSAGE 1; BASOPHILS % 0.3 % (0.0-2.0); EOSINOPHILS # 0.2 10^3/ul (0.0-0.5); EOSINOPHILS % 2.7 % (0.0-7.0); HEMATOCRIT 27.1 % (42.0-52.0); HEMOGLOBIN 8.5 g/dl (14.0-18.0); LYMPHOCYTES # 1.4 10^3/ul (0.8-2.9); LYMPHOCYTES % 18.6 % (15.0-51.0); MEAN CORPUSCULAR HEMOGLOBIN 30.7 pg (29.0-33.0); MEAN CORPUSCULAR HGB CONC 31.4 g/dl (32.0-37.0); MEAN CORPUSCULAR VOLUME 97.8 fl (82.0-101.0); MEAN PLATELET VOLUME 13.4 fl (7.4-10.4); MONOCYTE # 0.7 10^3/ul (0.3-0.9); MONOCYTES % 9.2 % (0.0-11.0); NEUTROPHILS % 68.8 % (39.0-77.0); PLATELET COUNT 204 10^3/UL (140-415); POSITIVE DIFF @See below; RED BLOOD COUNT 2.77 10^6/ul (4.70-6.10); RED CELL DISTRIBUTION WIDTH 15.5 % (11.5-14.5)
[2018-04-02 05:34] LABS: PHOSPHORUS 3.6 mg/dl (2.5-4.9)
[2018-04-02 05:34] LABS: MAGNESIUM 1.8 mg/dl (1.7-2.5)
[2018-04-02] MEDS: PANTOPRAZOLE 40 MG INJ IV (05:35)
[2018-04-02] MEDS: METOCLOPRAMIDE 10 MG INJ IV ×3 (05:35→21:10)
[2018-04-02 05:46] LABS: ANION GAP 7 (5-13); BLOOD UREA NITROGEN 21 mg/dl (7-20); CALCIUM 8.3 mg/dl (8.4-10.2); CARBON DIOXIDE 29 mmol/L (21-31); CHLORIDE 108 mmol/L (97-110); Estimated GFR > 60 mL/min (>60); GLUCOSE 125 mg/dl (70-220); POTASSIUM 3.6 mmol/L (3.5-5.1); SODIUM 144 mmol/L (135-144)
[2018-04-02] MEDS: PROPOFOL 100 ML IV (05:49)
[2018-04-02] MEDS: SACCHAROMYCES BOULARDII 250 MG CAP PO ×2 (09:56→21:43)
[2018-04-02] MEDS: FUROSEMIDE 40 MG INJ IV (09:56)
[2018-04-02] MEDS: CLOPIDOGREL 75 MG TAB PO (09:56)
[2018-04-02] MEDS: MEROPENEM 1 GM/50ML(PMX) 50 ML IVPB (09:56)
[2018-04-02] MEDS: ASPIRIN 81 MG TAB PO (09:56)
[2018-04-02] MEDS: BALSAM PERU/CASTOR OIL 60 GM TUBE TOP ×2 (09:58→21:10)
[2018-04-02] MEDS ORDERED: VANCOMYCIN 1 GM 250 ML IVPB (13:00)
[2018-04-02] MEDS: CASPOFUNGIN 50 MG in SOD CHLORIDE 0.9% 250 ML IVPB (15:14)
[2018-04-02] MEDS: FAMOTIDINE 20 MG TAB GTB (21:10)
[2018-04-02] MEDS: DOXYCYCLINE 100 MG TAB PO (21:10)
[2018-04-03] MEDS: INSULIN ASPART [NOVOLOG] 3 ML PEN SC ×6 (01:00→21:23)
[2018-04-03] MEDS: ACCU-CHEK XX (02:00)
[2018-04-03] MEDS: METOCLOPRAMIDE 10 MG INJ IV ×3 (06:01→21:24)
[2018-04-03] MEDS: FUROSEMIDE 40 MG INJ IV (08:44)
[2018-04-03] MEDS: DOXYCYCLINE 100 MG TAB PO ×2 (08:44→21:23)
[2018-04-03] MEDS: SACCHAROMYCES BOULARDII 250 MG CAP PO (08:44)
[2018-04-03] MEDS: CLOPIDOGREL 75 MG TAB PO (08:44)
[2018-04-03] MEDS: FAMOTIDINE 20 MG TAB GTB ×2 (08:44→21:23)
[2018-04-03] MEDS: ASPIRIN 81 MG TAB PO (08:44)
[2018-04-03] MEDS: BALSAM PERU/CASTOR OIL 60 GM TUBE TOP ×2 (08:45→21:23)
[2018-04-03] MEDS: LORAZEPAM 2 MG INJ IV (10:22)
[2018-04-03] MEDS: CASPOFUNGIN 50 MG in SOD CHLORIDE 0.9% 250 ML IVPB (14:34)
[2018-04-04] MEDS: INSULIN ASPART [NOVOLOG] 3 ML PEN SC ×6 (01:00→20:38)
[2018-04-04] MEDS: ACCU-CHEK XX (02:00)
[2018-04-04 05:20] LABS: ADD MAN DIFF? NO
[2018-04-04 05:29] LABS: WHITE BLOOD COUNT 5.9 10^3/ul (4.8-10.8)
[2018-04-04 05:29] LABS: ABNORMAL IP MESSAGE 1; BASOPHILS % 0.5 % (0.0-2.0); EOSINOPHILS # 0.2 10^3/ul (0.0-0.5); EOSINOPHILS % 3.2 % (0.0-7.0); HEMATOCRIT 28.5 % (42.0-52.0); LYMPHOCYTES # 1.3 10^3/ul (0.8-2.9); LYMPHOCYTES % 22.6 % (15.0-51.0); MEAN CORPUSCULAR HEMOGLOBIN 30.7 pg (29.0-33.0); MEAN CORPUSCULAR HGB CONC 31.6 g/dl (32.0-37.0); MEAN CORPUSCULAR VOLUME 97.3 fl (82.0-101.0); MEAN PLATELET VOLUME 13.4 fl (7.4-10.4); MONOCYTE # 0.7 10^3/ul (0.3-0.9); MONOCYTES % 11.1 % (0.0-11.0); NEUTROPHIL # 3.7 10^3/ul (1.6-7.5); NEUTROPHILS % 62.3 % (39.0-77.0); PLATELET COUNT 209 10^3/UL (140-415); POSITIVE DIFF @See below; RED BLOOD COUNT 2.93 10^6/ul (4.70-6.10)
[2018-04-04] MEDS: METOCLOPRAMIDE 10 MG INJ IV ×3 (05:47→21:55)
[2018-04-04 05:50] LABS: ANION GAP 8 (5-13); BLOOD UREA NITROGEN 20 mg/dl (7-20); CALCIUM 8.9 mg/dl (8.4-10.2); CARBON DIOXIDE 33 mmol/L (21-31); CHLORIDE 102 mmol/L (97-110); CREATININE 0.82 mg/dl (0.61-1.24); Estimated GFR > 60 mL/min (>60); GLUCOSE 145 mg/dl (70-220); POTASSIUM 3.4 mmol/L (3.5-5.1); SODIUM 143 mmol/L (135-144)
[2018-04-04] MEDS: ASPIRIN 81 MG TAB PO (09:18)
[2018-04-04] MEDS: DOXYCYCLINE 100 MG TAB PO ×2 (09:18→20:38)
[2018-04-04] MEDS: CLOPIDOGREL 75 MG TAB PO (09:18)
[2018-04-04] MEDS: FAMOTIDINE 20 MG TAB GTB ×2 (09:18→20:38)
[2018-04-04] MEDS: FUROSEMIDE 40 MG INJ IV (09:19)
[2018-04-04] MEDS: BALSAM PERU/CASTOR OIL 60 GM TUBE TOP ×2 (09:30→20:39)
[2018-04-04] MEDS: LORAZEPAM 2 MG INJ IV ×3 (10:32→20:39)
[2018-04-04] MEDS: CASPOFUNGIN 50 MG in SOD CHLORIDE 0.9% 250 ML IVPB (14:01)
[2018-04-04] MEDS: POTASSIUM CHLORIDE (SR) 20 MEQ TAB PO (17:40)
[2018-04-05] MEDS: INSULIN ASPART [NOVOLOG] 3 ML PEN SC ×6 (00:54→21:00)
[2018-04-05] MEDS: ACCU-CHEK XX (01:04)
[2018-04-05 05:12] LABS: ADD MAN DIFF? NO
[2018-04-05 05:20] LABS: WHITE BLOOD COUNT 4.7 10^3/ul (4.8-10.8)
[2018-04-05 05:20] LABS: ABNORMAL IP MESSAGE 1; BASOPHILS % 0.6 % (0.0-2.0); EOSINOPHILS # 0.2 10^3/ul (0.0-0.5); EOSINOPHILS % 4.5 % (0.0-7.0); HEMATOCRIT 26.5 % (42.0-52.0); HEMOGLOBIN 8.2 g/dl (14.0-18.0); LYMPHOCYTES # 1.2 10^3/ul (0.8-2.9); LYMPHOCYTES % 25.9 % (15.0-51.0); MEAN CORPUSCULAR HEMOGLOBIN 30.3 pg (29.0-33.0); MEAN CORPUSCULAR HGB CONC 30.9 g/dl (32.0-37.0); MEAN CORPUSCULAR VOLUME 97.8 fl (82.0-101.0); MEAN PLATELET VOLUME 13.9 fl (7.4-10.4); MONOCYTE # 0.6 10^3/ul (0.3-0.9); MONOCYTES % 12.7 % (0.0-11.0); NEUTROPHIL # 2.6 10^3/ul (1.6-7.5); NEUTROPHILS % 56.1 % (39.0-77.0); PLATELET COUNT 184 10^3/UL (140-415); POSITIVE DIFF @See below; RED BLOOD COUNT 2.71 10^6/ul (4.70-6.10); RED CELL DISTRIBUTION WIDTH 14.9 % (11.5-14.5)
[2018-04-05 05:55] LABS: PHOSPHORUS 4.3 mg/dl (2.5-4.9)
[2018-04-05 05:55] LABS: MAGNESIUM 1.8 mg/dl (1.7-2.5)
[2018-04-05 05:57] LABS: ANION GAP 8 (5-13); BLOOD UREA NITROGEN 21 mg/dl (7-20); CALCIUM 8.5 mg/dl (8.4-10.2); CARBON DIOXIDE 32 mmol/L (21-31); CHLORIDE 101 mmol/L (97-110); CREATININE 0.76 mg/dl (0.61-1.24); Estimated GFR > 60 mL/min (>60); GLUCOSE 124 mg/dl (70-220); POTASSIUM 3.9 mmol/L (3.5-5.1); SODIUM 141 mmol/L (135-144)
[2018-04-05] MEDS: METOCLOPRAMIDE 10 MG INJ IV ×3 (06:00→21:53)
[2018-04-05] MEDS: BALSAM PERU/CASTOR OIL 60 GM TUBE TOP ×2 (09:49→21:08)
[2018-04-05] MEDS: FUROSEMIDE 40 MG INJ IV (10:01)
[2018-04-05] MEDS: FAMOTIDINE 20 MG TAB GTB ×2 (10:02→21:07)
[2018-04-05] MEDS: CLOPIDOGREL 75 MG TAB PO (10:02)
[2018-04-05] MEDS: DOXYCYCLINE 100 MG TAB PO ×2 (10:03→21:07)
[2018-04-05] MEDS: ASPIRIN 81 MG TAB PO (10:03)
[2018-04-05] MEDS: CASPOFUNGIN 50 MG in SOD CHLORIDE 0.9% 250 ML IVPB (14:46)
[2018-04-05] MEDS: ALTEPLASE (CATHFLO) 2 MG INJ CATHETER ×2 (16:43→18:57)
[2018-04-05] MEDS: LORAZEPAM 2 MG INJ IV (21:27)
[2018-04-06] MEDS: INSULIN ASPART [NOVOLOG] 3 ML PEN SC ×6 (01:00→21:00)
[2018-04-06] MEDS: ACCU-CHEK XX (02:00)
[2018-04-06] MEDS: METOCLOPRAMIDE 10 MG INJ IV ×3 (06:14→21:12)
[2018-04-06 07:37] LABS: ADD MAN DIFF? NO
[2018-04-06 07:40] LABS: WHITE BLOOD COUNT 5.2 10^3/ul (4.8-10.8)
[2018-04-06 07:40] LABS: ABNORMAL IP MESSAGE 1; BASOPHILS % 0.4 % (0.0-2.0); EOSINOPHILS # 0.2 10^3/ul (0.0-0.5); EOSINOPHILS % 3.7 % (0.0-7.0); HEMATOCRIT 24.4 % (42.0-52.0); HEMOGLOBIN 7.6 g/dl (14.0-18.0); LYMPHOCYTES # 1.3 10^3/ul (0.8-2.9); LYMPHOCYTES % 24.4 % (15.0-51.0); MEAN CORPUSCULAR HEMOGLOBIN 30.3 pg (29.0-33.0); MEAN CORPUSCULAR HGB CONC 31.1 g/dl (32.0-37.0); MEAN CORPUSCULAR VOLUME 97.2 fl (82.0-101.0); MEAN PLATELET VOLUME 13.1 fl (7.4-10.4); MONOCYTE # 0.6 10^3/ul (0.3-0.9); MONOCYTES % 12.4 % (0.0-11.0); NEUTROPHIL # 3.1 10^3/ul (1.6-7.5); NEUTROPHILS % 58.9 % (39.0-77.0); PLATELET COUNT 173 10^3/UL (140-415); POSITIVE DIFF @See below; RED BLOOD COUNT 2.51 10^6/ul (4.70-6.10)
[2018-04-06 08:03] LABS: INR 1.11; PROTIME 14.5 Sec (11.9-14.9); PT RATIO 1.1
[2018-04-06 08:08] LABS: ANION GAP 8 (5-13); BLOOD UREA NITROGEN 22 mg/dl (7-20); CALCIUM 8.8 mg/dl (8.4-10.2); CARBON DIOXIDE 31 mmol/L (21-31); CHLORIDE 100 mmol/L (97-110); CREATININE 0.84 mg/dl (0.61-1.24); Estimated GFR > 60 mL/min (>60); GLUCOSE 125 mg/dl (70-220); MAGNESIUM 1.7 mg/dl (1.7-2.5); PHOSPHORUS 4.8 mg/dl (2.5-4.9); POTASSIUM 3.7 mmol/L (3.5-5.1); SODIUM 139 mmol/L (135-144)
[2018-04-06] MEDS: LORAZEPAM 2 MG INJ IV (08:37)
[2018-04-06] MEDS: ACETAMINOPHEN 650MG/20.3ML CUP PO (10:42)
[2018-04-06] MEDS: FUROSEMIDE 40 MG INJ IV (10:42)
[2018-04-06] MEDS: ASPIRIN 81 MG TAB PO (10:42)
[2018-04-06] MEDS: CLOPIDOGREL 75 MG TAB PO (10:42)
[2018-04-06] MEDS: FAMOTIDINE 20 MG TAB GTB ×2 (10:43→21:12)
[2018-04-06] MEDS: COLLAGENASE 5 GM (UD JAR) TOP (10:43)
[2018-04-06] MEDS: DOXYCYCLINE 100 MG TAB PO ×2 (10:43→22:22)
[2018-04-06] MEDS: BALSAM PERU/CASTOR OIL 60 GM TUBE TOP ×2 (10:43→21:00)
[2018-04-06] MEDS ORDERED: HEPARIN 1000 UNITS/ML 10 ML INJ ×2 (13:24→14:23)
[2018-04-06] MEDS ORDERED: FENTAnyl 50 MCG/ML VIAL (13:24)
[2018-04-06] MEDS ORDERED: NITROGLYCERIN (IC) 100 MCG/ML INJ (13:24)
[2018-04-06] MEDS ORDERED: MIDAZOLAM 1 MG/ML 2 ML INJ ×2 (13:24→14:23)
[2018-04-06] MEDS ORDERED: LIDOCAINE 2% (MDV) 20 ML INJ (13:24)
[2018-04-06] MEDS ORDERED: VERAPAMIL 5 MG INJ (13:24)
[2018-04-06] MEDS ORDERED: IODIXANOL LOCM 100 ML BTL (14:23)
[2018-04-06] MEDS ORDERED: SOD CHLORIDE 0.9% 500 ML (14:23)
[2018-04-06] MEDS: CASPOFUNGIN 50 MG in SOD CHLORIDE 0.9% 250 ML IVPB (14:30)
[2018-04-06] MEDS: AMIODARONE DRIP 1 MG/MIN X 6 HRS, THEN 0.5 MG/MIN X 18 HRS THEN DC IV (15:00)
[2018-04-06] MEDS: AMIODARONE 150MG/D5W BOLUS 100 ML IV (15:30)
[2018-04-06] MEDS: SOD CHLORIDE 0.9% 1,000 ML IV (16:10)
[2018-04-06] MEDS ORDERED: BIVALIRUDIN 250MG /NS 50 ML 50 ML IVPB (17:08)
[2018-04-06 19:39] LABS: ANION GAP 8 (5-13); BLOOD UREA NITROGEN 21 mg/dl (7-20); CALCIUM 8.8 mg/dl (8.4-10.2); CARBON DIOXIDE 30 mmol/L (21-31); CHLORIDE 97 mmol/L (97-110); CREATININE 0.85 mg/dl (0.61-1.24); Estimated GFR > 60 mL/min (>60); GLUCOSE 136 mg/dl (70-220); MAGNESIUM 1.6 mg/dl (1.7-2.5); PHOSPHORUS 5.6 mg/dl (2.5-4.9); POTASSIUM 3.7 mmol/L (3.5-5.1); SODIUM 135 mmol/L (135-144)
[2018-04-06 20:51] LABS: AADO2 Arterial 162.7 mmHg (7.0-24.0); Allen Test ACCEPTAB; Arterial Base Excess 7.4 mmol/L (-3.0-3); Arterial COHb 0.3 % (0.0-3.0); Arterial Fraction of Oxyhgb 98.4 % (93.0-99.0); Arterial HCO3 29.9 mmol/L (22.0-26.0); Arterial MetHb 0.3 % (0.0-1.5); Arterial Total Hemglobin 9.1 g/dl (12.0-18.0); Arterial pCO2 34.1 mmhg (35-45); MODE VENT - AC; Site LB
[2018-04-06] MEDS: MAGNESIUM SULFATE 3 GM in DEXTROSE 5% 100 ML IVPB (22:45)
[2018-04-07] MEDS: INSULIN ASPART [NOVOLOG] 3 ML PEN SC ×6 (01:00→21:00)
[2018-04-07] MEDS: ACCU-CHEK XX (02:53)
[2018-04-07] MEDS: DIPHENHYDRAMINE 50 MG CAP PO (02:54)
[2018-04-07] MEDS: DIAZEPAM 5 MG TAB PO (02:54)
[2018-04-07 05:00] LABS: ADD MAN DIFF? NO
[2018-04-07 05:03] LABS: ABNORMAL IP MESSAGE 1; BASOPHILS % 0.4 % (0.0-2.0); EOSINOPHILS # 0.2 10^3/ul (0.0-0.5); EOSINOPHILS % 3.4 % (0.0-7.0); HEMATOCRIT 24.4 % (42.0-52.0); HEMOGLOBIN 7.8 g/dl (14.0-18.0); LYMPHOCYTES # 1.3 10^3/ul (0.8-2.9); LYMPHOCYTES % 24.4 % (15.0-51.0); MEAN CORPUSCULAR HEMOGLOBIN 30.8 pg (29.0-33.0); MEAN CORPUSCULAR VOLUME 96.4 fl (82.0-101.0); MEAN PLATELET VOLUME 13.5 fl (7.4-10.4); MONOCYTE # 0.7 10^3/ul (0.3-0.9); MONOCYTES % 13.2 % (0.0-11.0); NEUTROPHIL # 3.1 10^3/ul (1.6-7.5); NEUTROPHILS % 58.4 % (39.0-77.0); PLATELET COUNT 178 10^3/UL (140-415); POSITIVE DIFF @See below; RED BLOOD COUNT 2.53 10^6/ul (4.70-6.10); RED CELL DISTRIBUTION WIDTH 15.2 % (11.5-14.5)
[2018-04-07 05:03] LABS: WHITE BLOOD COUNT 5.4 10^3/ul (4.8-10.8)
[2018-04-07 05:22] LABS: ANION GAP 10 (5-13); BLOOD UREA NITROGEN 19 mg/dl (7-20); CALCIUM 8.8 mg/dl (8.4-10.2); CARBON DIOXIDE 29 mmol/L (21-31); CHLORIDE 98 mmol/L (97-110); CREATININE 0.89 mg/dl (0.61-1.24); Estimated GFR > 60 mL/min (>60); GLUCOSE 131 mg/dl (70-220); POTASSIUM 3.6 mmol/L (3.5-5.1); SODIUM 137 mmol/L (135-144)
[2018-04-07] MEDS: METOCLOPRAMIDE 10 MG INJ IV ×3 (05:24→21:33)
[2018-04-07 06:56] LABS: MAGNESIUM 2.2 mg/dl (1.7-2.5)
[2018-04-07 07:27] LABS: AADO2 Arterial 74.9 mmHg (7.0-24.0); Allen Test ACCEPTAB; Arterial Base Excess 6.2 mmol/L (-3.0-3); Arterial Blood Gas Oxygen Sat 97.4 mmHG (95.0-98.0); Arterial COHb 0.8 % (0.0-3.0); Arterial Fraction of Oxyhgb 96.2 % (93.0-99.0); Arterial HCO3 29.7 mmol/L (22.0-26.0); Arterial MetHb 0.4 % (0.0-1.5); Arterial Total Hemglobin 8.5 g/dl (12.0-18.0); Arterial pCO2 38.2 mmhg (35-45); MODE VENT - AC; Site Right Radial
[2018-04-07] MEDS: DOXYCYCLINE 100 MG TAB PO ×2 (08:55→21:33)
[2018-04-07] MEDS: ASPIRIN 81 MG TAB PO (08:55)
[2018-04-07] MEDS: CLOPIDOGREL 75 MG TAB PO (08:55)
[2018-04-07] MEDS: FAMOTIDINE 20 MG TAB GTB ×2 (08:55→21:33)
[2018-04-07] MEDS: FUROSEMIDE 40 MG INJ IV (08:56)
[2018-04-07] MEDS: COLLAGENASE 5 GM (UD JAR) TOP (08:56)
[2018-04-07] MEDS: BALSAM PERU/CASTOR OIL 60 GM TUBE TOP ×2 (08:59→21:36)
[2018-04-07] MEDS: LORAZEPAM 2 MG INJ IV (12:21)
[2018-04-07] MEDS: CASPOFUNGIN 50 MG in SOD CHLORIDE 0.9% 250 ML IVPB (14:30)
[2018-04-08] MEDS: INSULIN ASPART [NOVOLOG] 3 ML PEN SC ×5 (01:00→18:00)
[2018-04-08] MEDS: ACCU-CHEK XX (02:00)
[2018-04-08 05:15] LABS: ADD MAN DIFF? NO
[2018-04-08 05:25] LABS: ABNORMAL IP MESSAGE 1; BASOPHILS % 0.6 % (0.0-2.0); EOSINOPHILS # 0.2 10^3/ul (0.0-0.5); EOSINOPHILS % 4.4 % (0.0-7.0); LYMPHOCYTES # 1.3 10^3/ul (0.8-2.9); LYMPHOCYTES % 26.2 % (15.0-51.0); MEAN CORPUSCULAR HEMOGLOBIN 30.7 pg (29.0-33.0); MEAN CORPUSCULAR HGB CONC 31.8 g/dl (32.0-37.0); MEAN CORPUSCULAR VOLUME 96.5 fl (82.0-101.0); MONOCYTE # 0.7 10^3/ul (0.3-0.9); MONOCYTES % 14.1 % (0.0-11.0); NEUTROPHIL # 2.7 10^3/ul (1.6-7.5); NEUTROPHILS % 54.3 % (39.0-77.0); PLATELET COUNT 162 10^3/UL (140-415); POSITIVE DIFF @See below; RED BLOOD COUNT 2.28 10^6/ul (4.70-6.10); RED CELL DISTRIBUTION WIDTH 15.5 % (11.5-14.5)
[2018-04-08] MEDS: METOCLOPRAMIDE 10 MG INJ IV (05:37)
[2018-04-08 05:51] LABS: ANION GAP 8 (5-13); BLOOD UREA NITROGEN 18 mg/dl (7-20); CALCIUM 8.7 mg/dl (8.4-10.2); CARBON DIOXIDE 30 mmol/L (21-31); CHLORIDE 99 mmol/L (97-110); CREATININE 0.95 mg/dl (0.61-1.24); Estimated GFR > 60 mL/min (>60); GLUCOSE 111 mg/dl (70-220); POTASSIUM 3.8 mmol/L (3.5-5.1); SODIUM 137 mmol/L (135-144)
[2018-04-08 05:52] LABS: MAGNESIUM 1.8 mg/dl (1.7-2.5)
[2018-04-08 05:52] LABS: PHOSPHORUS 4.8 mg/dl (2.5-4.9)
[2018-04-08] MEDS: BALSAM PERU/CASTOR OIL 60 GM TUBE TOP ×2 (08:20→21:02)
[2018-04-08] MEDS: ASPIRIN 81 MG TAB PO (08:20)
[2018-04-08] MEDS: COLLAGENASE 5 GM (UD JAR) TOP (08:20)
[2018-04-08] MEDS: DOXYCYCLINE 100 MG TAB PO (08:20)
[2018-04-08] MEDS: FAMOTIDINE 20 MG TAB GTB ×2 (08:20→21:02)
[2018-04-08] MEDS: CLOPIDOGREL 75 MG TAB PO (08:20)
[2018-04-08] MEDS: FUROSEMIDE 40 MG INJ IV (08:21)
[2018-04-08 14:26] LABS: IMMEDIATE SPIN CROSSMATCH 1 1
[2018-04-09] MEDS: ACCU-CHEK XX (00:04)
[2018-04-09 05:26] LABS: ADD MAN DIFF? NO
[2018-04-09 05:32] LABS: ABNORMAL IP MESSAGE 1; BASOPHILS % 0.4 % (0.0-2.0); EOSINOPHILS # 0.2 10^3/ul (0.0-0.5); EOSINOPHILS % 3.6 % (0.0-7.0); HEMOGLOBIN 8.1 g/dl (14.0-18.0); LYMPHOCYTES # 1.3 10^3/ul (0.8-2.9); LYMPHOCYTES % 27.1 % (15.0-51.0); MEAN CORPUSCULAR HEMOGLOBIN 30.7 pg (29.0-33.0); MEAN CORPUSCULAR HGB CONC 32.4 g/dl (32.0-37.0); MEAN CORPUSCULAR VOLUME 94.7 fl (82.0-101.0); MEAN PLATELET VOLUME 13.9 fl (7.4-10.4); MONOCYTE # 0.7 10^3/ul (0.3-0.9); MONOCYTES % 13.6 % (0.0-11.0); NEUTROPHIL # 2.7 10^3/ul (1.6-7.5); NEUTROPHILS % 55.1 % (39.0-77.0); PLATELET COUNT 148 10^3/UL (140-415); POSITIVE DIFF @See below; RED BLOOD COUNT 2.64 10^6/ul (4.70-6.10)
[2018-04-09 05:32] LABS: WHITE BLOOD COUNT 4.9 10^3/ul (4.8-10.8)
[2018-04-09] MEDS: INSULIN ASPART [NOVOLOG] 3 ML PEN SC ×5 (05:38→23:38)
[2018-04-09 06:06] LABS: PROTIME 14.4 Sec (11.9-14.9); PT RATIO 1.1
[2018-04-09 06:42] LABS: ANION GAP 5 (5-13); BLOOD UREA NITROGEN 18 mg/dl (7-20); CALCIUM 8.6 mg/dl (8.4-10.2); CARBON DIOXIDE 31 mmol/L (21-31); CHLORIDE 102 mmol/L (97-110); CREATININE 0.88 mg/dl (0.61-1.24); Estimated GFR > 60 mL/min (>60); GLUCOSE 109 mg/dl (70-220); POTASSIUM 3.7 mmol/L (3.5-5.1); SODIUM 138 mmol/L (135-144)
[2018-04-09] MEDS ORDERED: DOPamine-D5W 1.6 MG/ML 250 ML (07:00)
[2018-04-09 07:40] LABS: PHOSPHORUS 4.5 mg/dl (2.5-4.9)
[2018-04-09 07:40] LABS: MAGNESIUM 1.6 mg/dl (1.7-2.5)
[2018-04-09] MEDS: CLOPIDOGREL 75 MG TAB PO ×2 (09:00→17:39)
[2018-04-09] MEDS: FUROSEMIDE 40 MG INJ IV (09:24)
[2018-04-09] MEDS: FAMOTIDINE 20 MG TAB GTB ×2 (09:24→21:03)
[2018-04-09] MEDS: ASPIRIN 81 MG TAB PO (09:24)
[2018-04-09] MEDS: COLLAGENASE 5 GM (UD JAR) TOP (09:25)
[2018-04-09] MEDS: BALSAM PERU/CASTOR OIL 60 GM TUBE TOP ×2 (09:25→21:03)
[2018-04-09] MEDS: MAGNESIUM SULFATE 3 GM in DEXTROSE 5% 100 ML IVPB (10:40)
[2018-04-09] MEDS ORDERED: HEPARIN 1000 UNITS/ML 10 ML INJ (11:43)
[2018-04-09] MEDS ORDERED: NITROGLYCERIN (IC) 100 MCG/ML INJ (11:43)
[2018-04-09] MEDS ORDERED: IODIXANOL LOCM 100 ML BTL (11:43)
[2018-04-09] MEDS ORDERED: HEPARIN 1000 UNITS/NS (A-LINE) 1,000 ML (11:43)
[2018-04-09] MEDS ORDERED: FENTAnyl 50 MCG/ML VIAL (11:43)
[2018-04-09] MEDS ORDERED: VERAPAMIL 5 MG INJ (11:43)
[2018-04-09] MEDS ORDERED: MIDAZOLAM 1 MG/ML 2 ML INJ (11:43)
[2018-04-09] MEDS ORDERED: BIVALIRUDIN 250MG /NS 50 ML 100 ML IVPB (12:53)
[2018-04-09] MEDS ORDERED: CLOPIDOGREL 300 MG TAB (13:24)
[2018-04-09] MEDS ORDERED: ACETAMINOPHEN 325 MG TAB PO (13:30)
[2018-04-09] MEDS ORDERED: AL HYDROX/MG HYDROX/SIMETH 30 ML CUP PO (13:30)
[2018-04-09] MEDS ORDERED: ONDANSETRON 4 MG INJ IV (13:30)
[2018-04-09] MEDS: SOD CHLORIDE 0.9% 1,000 ML IV (15:21)
[2018-04-09] MEDS: CLOPIDOGREL 300 MG TAB PO (16:56)
[2018-04-10] MEDS: ACCU-CHEK XX (02:00)
[2018-04-10 05:30] LABS: ADD MAN DIFF? NO
[2018-04-10 05:38] LABS: WHITE BLOOD COUNT 5.2 10^3/ul (4.8-10.8)
[2018-04-10 05:38] LABS: ABNORMAL IP MESSAGE 1; BASOPHILS % 0.4 % (0.0-2.0); EOSINOPHILS # 0.2 10^3/ul (0.0-0.5); EOSINOPHILS % 3.4 % (0.0-7.0); HEMOGLOBIN 8.1 g/dl (14.0-18.0); LYMPHOCYTES # 1.4 10^3/ul (0.8-2.9); LYMPHOCYTES % 26.7 % (15.0-51.0); MEAN CORPUSCULAR HEMOGLOBIN 30.6 pg (29.0-33.0); MEAN CORPUSCULAR HGB CONC 32.4 g/dl (32.0-37.0); MEAN CORPUSCULAR VOLUME 94.3 fl (82.0-101.0); MEAN PLATELET VOLUME 13.9 fl (7.4-10.4); MONOCYTE # 0.7 10^3/ul (0.3-0.9); MONOCYTES % 12.4 % (0.0-11.0); NEUTROPHILS % 56.7 % (39.0-77.0); PLATELET COUNT 150 10^3/UL (140-415); POSITIVE DIFF @See below; RED BLOOD COUNT 2.65 10^6/ul (4.70-6.10); RED CELL DISTRIBUTION WIDTH 15.9 % (11.5-14.5)
[2018-04-10 05:52] LABS: ANION GAP 8 (5-13); BLOOD UREA NITROGEN 19 mg/dl (7-20); CALCIUM 8.9 mg/dl (8.4-10.2); CARBON DIOXIDE 30 mmol/L (21-31); CHLORIDE 100 mmol/L (97-110); CREATININE 0.89 mg/dl (0.61-1.24); Estimated GFR > 60 mL/min (>60); GLUCOSE 115 mg/dl (70-220); POTASSIUM 3.7 mmol/L (3.5-5.1); SODIUM 138 mmol/L (135-144)
[2018-04-10 05:56] LABS: MAGNESIUM 1.9 mg/dl (1.7-2.5)
[2018-04-10 05:56] LABS: PHOSPHORUS 4.8 mg/dl (2.5-4.9)
[2018-04-10] MEDS: INSULIN ASPART [NOVOLOG] 3 ML PEN SC ×3 (06:00→17:53)
[2018-04-10 06:06] LABS: TROPONIN-I 0.142 ng/ml (0.000-0.120)
[2018-04-10] MEDS: FAMOTIDINE 20 MG TAB GTB ×2 (09:34→20:19)
[2018-04-10] MEDS: ASPIRIN 81 MG TAB PO (09:34)
[2018-04-10] MEDS: BALSAM PERU/CASTOR OIL 60 GM TUBE TOP ×2 (09:34→20:24)
[2018-04-10] MEDS: CLOPIDOGREL 75 MG TAB PO (09:34)
[2018-04-10] MEDS: COLLAGENASE 5 GM (UD JAR) TOP (09:34)
[2018-04-10] MEDS: FUROSEMIDE 40 MG INJ IV (09:34)
[2018-04-11] MEDS: ACCU-CHEK XX (01:05)
[2018-04-11] MEDS: INSULIN ASPART [NOVOLOG] 3 ML PEN SC ×4 (06:00→18:24)
[2018-04-11 07:18] LABS: ADD MAN DIFF? NO
[2018-04-11 07:24] LABS: ABNORMAL IP MESSAGE 1; BASOPHILS % 0.6 % (0.0-2.0); EOSINOPHILS # 0.2 10^3/ul (0.0-0.5); EOSINOPHILS % 4.5 % (0.0-7.0); HEMATOCRIT 25.3 % (42.0-52.0); HEMOGLOBIN 8.1 g/dl (14.0-18.0); LYMPHOCYTES # 1.2 10^3/ul (0.8-2.9); LYMPHOCYTES % 24.3 % (15.0-51.0); MEAN CORPUSCULAR HEMOGLOBIN 30.3 pg (29.0-33.0); MEAN CORPUSCULAR VOLUME 94.8 fl (82.0-101.0); MEAN PLATELET VOLUME 14.1 fl (7.4-10.4); MONOCYTE # 0.8 10^3/ul (0.3-0.9); MONOCYTES % 15.2 % (0.0-11.0); NEUTROPHIL # 2.7 10^3/ul (1.6-7.5); NEUTROPHILS % 55.2 % (39.0-77.0); PLATELET COUNT 141 10^3/UL (140-415); POSITIVE DIFF @See below; RED BLOOD COUNT 2.67 10^6/ul (4.70-6.10); RED CELL DISTRIBUTION WIDTH 15.9 % (11.5-14.5)
[2018-04-11 07:24] LABS: WHITE BLOOD COUNT 4.9 10^3/ul (4.8-10.8)
[2018-04-11 07:48] LABS: ANION GAP 8 (5-13); BLOOD UREA NITROGEN 20 mg/dl (7-20); CALCIUM 8.7 mg/dl (8.4-10.2); CARBON DIOXIDE 29 mmol/L (21-31); CHLORIDE 100 mmol/L (97-110); CREATININE 0.84 mg/dl (0.61-1.24); Estimated GFR > 60 mL/min (>60); GLUCOSE 143 mg/dl (70-220); POTASSIUM 3.9 mmol/L (3.5-5.1); SODIUM 137 mmol/L (135-144)
[2018-04-11] MEDS: COLLAGENASE 5 GM (UD JAR) TOP (08:30)
[2018-04-11] MEDS: FUROSEMIDE 40 MG INJ IV (08:30)
[2018-04-11] MEDS: BALSAM PERU/CASTOR OIL 60 GM TUBE TOP ×2 (08:30→20:39)
[2018-04-11] MEDS: ASPIRIN 81 MG TAB PO (08:31)
[2018-04-11] MEDS: CLOPIDOGREL 75 MG TAB PO (08:31)
[2018-04-11] MEDS: FAMOTIDINE 20 MG TAB GTB ×2 (08:31→20:38)
[2018-04-11] MEDS: LISINOPRIL 5 MG TAB PO (08:32)
[2018-04-12] MEDS: ACCU-CHEK XX (01:26)
[2018-04-12] MEDS: INSULIN ASPART [NOVOLOG] 3 ML PEN SC ×4 (06:00→17:18)
[2018-04-12] MEDS: FAMOTIDINE 20 MG TAB GTB ×2 (08:18→20:56)
[2018-04-12] MEDS: CLOPIDOGREL 75 MG TAB PO (08:18)
[2018-04-12] MEDS: ASPIRIN 81 MG TAB PO (08:18)
[2018-04-12] MEDS: LISINOPRIL 5 MG TAB PO (08:19)
[2018-04-12] MEDS: COLLAGENASE 5 GM (UD JAR) TOP (08:19)
[2018-04-12] MEDS: BALSAM PERU/CASTOR OIL 60 GM TUBE TOP ×2 (08:19→20:57)
[2018-04-12] MEDS: FUROSEMIDE 40 MG INJ IV (12:18)
[2018-04-12] MEDS: ATORVASTATIN 10 MG TAB NGT (20:56)
[2018-04-13] MEDS: ACCU-CHEK XX (02:00)
[2018-04-13] MEDS: INSULIN ASPART [NOVOLOG] 3 ML PEN SC ×5 (05:32→23:25)
[2018-04-13] MEDS: IOHEXOL 300MG/ML 30 ML BTL ×2 (09:07→09:08)
[2018-04-13 12:12] LABS: ADD MAN DIFF? NO
[2018-04-13 12:15] LABS: WHITE BLOOD COUNT 5.1 10^3/ul (4.8-10.8)
[2018-04-13 12:15] LABS: BASOPHILS % 0.4 % (0.0-2.0); EOSINOPHILS # 0.3 10^3/ul (0.0-0.5); EOSINOPHILS % 4.9 % (0.0-7.0); HEMATOCRIT 22.3 % (42.0-52.0); LYMPHOCYTES # 1.2 10^3/ul (0.8-2.9); LYMPHOCYTES % 22.5 % (15.0-51.0); MEAN CORPUSCULAR HEMOGLOBIN 30.3 pg (29.0-33.0); MEAN CORPUSCULAR HGB CONC 31.4 g/dl (32.0-37.0); MEAN CORPUSCULAR VOLUME 96.5 fl (82.0-101.0); MEAN PLATELET VOLUME 12.8 fl (7.4-10.4); MONOCYTE # 0.6 10^3/ul (0.3-0.9); MONOCYTES % 11.5 % (0.0-11.0); NEUTROPHIL # 3.1 10^3/ul (1.6-7.5); NEUTROPHILS % 60.3 % (39.0-77.0); PLATELET COUNT 134 10^3/UL (140-415); RED BLOOD COUNT 2.31 10^6/ul (4.70-6.10); RED CELL DISTRIBUTION WIDTH 15.7 % (11.5-14.5)
[2018-04-13] MEDS: LISINOPRIL 5 MG TAB PO (12:49)
[2018-04-13] MEDS: SPIRONOLACTONE 25 MG TAB PO (12:49)
[2018-04-13] MEDS: CLOPIDOGREL 75 MG TAB PO (12:49)
[2018-04-13] MEDS: ASPIRIN 81 MG TAB PO (12:49)
[2018-04-13] MEDS: BALSAM PERU/CASTOR OIL 60 GM TUBE TOP ×2 (12:50→21:18)
[2018-04-13] MEDS: COLLAGENASE 5 GM (UD JAR) TOP (12:50)
[2018-04-13] MEDS: FUROSEMIDE 40 MG INJ IV (12:50)
[2018-04-13 13:47] LABS: OCCULT BLOOD STOOL POSITIVE (NEGATIVE)
[2018-04-13] MEDS: IOHEXOL 14.3 MG(I)/ML (ADULT) BTL PO (14:15)
[2018-04-13] MEDS ORDERED: FUROSEMIDE 40 MG INJ IV (14:30)
[2018-04-13] MEDS: PANTOPRAZOLE 40 MG INJ IV (17:32)
[2018-04-13] MEDS: MAGNESIUM HYDROXIDE 30ML CUP PO (17:35)
[2018-04-13] MEDS: ACETAMINOPHEN 325 MG TAB PO (21:17)
[2018-04-13] MEDS: ATORVASTATIN 10 MG TAB NGT (21:18)
[2018-04-13 21:36] LABS: IMMEDIATE SPIN CROSSMATCH 1 2
[2018-04-14] MEDS: FUROSEMIDE 40 MG INJ IV ×2 (00:20→08:20)
[2018-04-14] MEDS: ACCU-CHEK XX (00:59)
[2018-04-14] MEDS: PANTOPRAZOLE 40 MG INJ IV ×2 (05:09→17:01)
[2018-04-14] MEDS: INSULIN ASPART [NOVOLOG] 3 ML PEN SC ×4 (05:09→21:11)
[2018-04-14 06:17] LABS: ADD MAN DIFF? NO
[2018-04-14 06:30] LABS: ABNORMAL IP MESSAGE 1; BASOPHILS % 0.6 % (0.0-2.0); EOSINOPHILS # 0.4 10^3/ul (0.0-0.5); EOSINOPHILS % 7.3 % (0.0-7.0); HEMATOCRIT 26.2 % (42.0-52.0); HEMOGLOBIN 8.5 g/dl (14.0-18.0); LYMPHOCYTES # 1.2 10^3/ul (0.8-2.9); LYMPHOCYTES % 21.9 % (15.0-51.0); MEAN CORPUSCULAR HEMOGLOBIN 30.6 pg (29.0-33.0); MEAN CORPUSCULAR HGB CONC 32.4 g/dl (32.0-37.0); MEAN CORPUSCULAR VOLUME 94.2 fl (82.0-101.0); MEAN PLATELET VOLUME 14.1 fl (7.4-10.4); MONOCYTE # 0.6 10^3/ul (0.3-0.9); NEUTROPHIL # 3.1 10^3/ul (1.6-7.5); NEUTROPHILS % 58.8 % (39.0-77.0); PLATELET COUNT 153 10^3/UL (140-415); POSITIVE DIFF @See below; RED BLOOD COUNT 2.78 10^6/ul (4.70-6.10); RED CELL DISTRIBUTION WIDTH 16.6 % (11.5-14.5)
[2018-04-14 06:30] LABS: WHITE BLOOD COUNT 5.3 10^3/ul (4.8-10.8)
[2018-04-14 06:40] LABS: ANION GAP 7 (5-13); BLOOD UREA NITROGEN 25 mg/dl (7-20); CALCIUM 8.9 mg/dl (8.4-10.2); CARBON DIOXIDE 34 mmol/L (21-31); CHLORIDE 94 mmol/L (97-110); CREATININE 1.02 mg/dl (0.61-1.24); Estimated GFR > 60 mL/min (>60); GLUCOSE 122 mg/dl (70-220); POTASSIUM 4.1 mmol/L (3.5-5.1); SODIUM 135 mmol/L (135-144)
[2018-04-14 07:28] LABS: MAGNESIUM 1.9 mg/dl (1.7-2.5)
[2018-04-14 07:28] LABS: PHOSPHORUS 5.1 mg/dl (2.5-4.9)
[2018-04-14 07:33] LABS: Allen Test ACCEPTAB; Arterial Base Excess 7.3 mmol/L (-3.0-3); Arterial Blood Gas Oxygen Sat 99.2 mmHG (95.0-98.0); Arterial COHb 0.1 % (0.0-3.0); Arterial Fraction of Oxyhgb 98.9 % (93.0-99.0); Arterial HCO3 31.3 mmol/L (22.0-26.0); Arterial MetHb 0.2 % (0.0-1.5); Arterial Total Hemglobin 9.4 g/dl (12.0-18.0); Arterial pCO2 41.7 mmhg (35-45); Blood Gas PS 10; MODE VENT - SIMV; Site Right Radial
[2018-04-14] MEDS: LISINOPRIL 5 MG TAB PO (08:24)
[2018-04-14] MEDS: SPIRONOLACTONE 25 MG TAB PO (08:24)
[2018-04-14] MEDS: ASPIRIN 81 MG TAB PO (08:25)
[2018-04-14] MEDS: CLOPIDOGREL 75 MG TAB PO (08:25)
[2018-04-14] MEDS: BALSAM PERU/CASTOR OIL 60 GM TUBE TOP ×2 (10:42→21:10)
[2018-04-14] MEDS: COLLAGENASE 5 GM (UD JAR) TOP (10:43)
[2018-04-14] MEDS: ATORVASTATIN 10 MG TAB NGT (21:10)
[2018-04-15] MEDS: ACCU-CHEK XX (01:57)
[2018-04-15] MEDS: INSULIN ASPART [NOVOLOG] 3 ML PEN SC ×3 (06:00→17:27)
[2018-04-15] MEDS: PANTOPRAZOLE 40 MG INJ IV ×2 (06:45→17:21)
[2018-04-15 08:10] LABS: ADD MAN DIFF? NO
[2018-04-15 08:14] LABS: ABNORMAL IP MESSAGE 1; BASOPHILS % 0.6 % (0.0-2.0); EOSINOPHILS # 0.4 10^3/ul (0.0-0.5); EOSINOPHILS % 8.6 % (0.0-7.0); HEMATOCRIT 24.9 % (42.0-52.0); HEMOGLOBIN 7.9 g/dl (14.0-18.0); LYMPHOCYTES # 1.3 10^3/ul (0.8-2.9); LYMPHOCYTES % 26.9 % (15.0-51.0); MEAN CORPUSCULAR HEMOGLOBIN 29.9 pg (29.0-33.0); MEAN CORPUSCULAR HGB CONC 31.7 g/dl (32.0-37.0); MEAN CORPUSCULAR VOLUME 94.3 fl (82.0-101.0); MEAN PLATELET VOLUME 14.2 fl (7.4-10.4); MONOCYTE # 0.6 10^3/ul (0.3-0.9); MONOCYTES % 12.3 % (0.0-11.0); NEUTROPHIL # 2.5 10^3/ul (1.6-7.5); NEUTROPHILS % 51.4 % (39.0-77.0); PLATELET COUNT 147 10^3/UL (140-415); POSITIVE DIFF @See below; RED BLOOD COUNT 2.64 10^6/ul (4.70-6.10); RED CELL DISTRIBUTION WIDTH 16.4 % (11.5-14.5)
[2018-04-15 08:14] LABS: WHITE BLOOD COUNT 4.8 10^3/ul (4.8-10.8)
[2018-04-15 08:34] LABS: ANION GAP 8 (5-13); BLOOD UREA NITROGEN 27 mg/dl (7-20); CALCIUM 8.9 mg/dl (8.4-10.2); CARBON DIOXIDE 32 mmol/L (21-31); CHLORIDE 96 mmol/L (97-110); Estimated GFR > 60 mL/min (>60); GLUCOSE 134 mg/dl (70-220); POTASSIUM 4.3 mmol/L (3.5-5.1); SODIUM 136 mmol/L (135-144)
[2018-04-15] MEDS: SPIRONOLACTONE 25 MG TAB PO (09:45)
[2018-04-15] MEDS: FUROSEMIDE 40 MG INJ IV (09:46)
[2018-04-15] MEDS: LISINOPRIL 5 MG TAB PO (09:46)
[2018-04-15] MEDS: BALSAM PERU/CASTOR OIL 60 GM TUBE TOP ×2 (09:47→21:18)
[2018-04-15] MEDS: COLLAGENASE 5 GM (UD JAR) TOP (09:47)
[2018-04-15] MEDS: OXYCODONE/ACETAMINOPHEN (5/325) TAB PO (13:37)
[2018-04-15] MEDS: LORAZEPAM 2 MG INJ IV (14:33)
[2018-04-15 16:15] LABS: ADD MAN DIFF? NO
[2018-04-15 16:18] LABS: WHITE BLOOD COUNT 6.5 10^3/ul (4.8-10.8)
[2018-04-15 16:19] LABS: ABNORMAL IP MESSAGE 1; BASOPHILS % 0.3 % (0.0-2.0); EOSINOPHILS # 0.5 10^3/ul (0.0-0.5); EOSINOPHILS % 7.9 % (0.0-7.0); HEMATOCRIT 25.6 % (42.0-52.0); HEMOGLOBIN 8.2 g/dl (14.0-18.0); LYMPHOCYTES # 1.4 10^3/ul (0.8-2.9); LYMPHOCYTES % 20.8 % (15.0-51.0); MEAN CORPUSCULAR HEMOGLOBIN 30.4 pg (29.0-33.0); MEAN CORPUSCULAR VOLUME 94.8 fl (82.0-101.0); MEAN PLATELET VOLUME 13.8 fl (7.4-10.4); MONOCYTE # 0.8 10^3/ul (0.3-0.9); MONOCYTES % 12.8 % (0.0-11.0); NEUTROPHIL # 3.8 10^3/ul (1.6-7.5); NEUTROPHILS % 57.9 % (39.0-77.0); PLATELET COUNT 158 10^3/UL (140-415); POSITIVE DIFF @See below; RED CELL DISTRIBUTION WIDTH 16.1 % (11.5-14.5)
[2018-04-15] MEDS: ATORVASTATIN 10 MG TAB NGT (21:18)
[2018-04-16] MEDS: LORAZEPAM 2 MG INJ IV (01:11)
[2018-04-16] MEDS: ACCU-CHEK XX (02:00)
[2018-04-16] MEDS: PANTOPRAZOLE 40 MG INJ IV ×2 (05:52→18:30)
[2018-04-16] MEDS: INSULIN ASPART [NOVOLOG] 3 ML PEN SC ×5 (05:57→23:51)
[2018-04-16 06:12] LABS: ADD MAN DIFF? NO
[2018-04-16 06:24] LABS: ABNORMAL IP MESSAGE 1; BASOPHILS % 0.4 % (0.0-2.0); EOSINOPHILS # 0.6 10^3/ul (0.0-0.5); EOSINOPHILS % 7.6 % (0.0-7.0); LYMPHOCYTES # 1.5 10^3/ul (0.8-2.9); LYMPHOCYTES % 20.2 % (15.0-51.0); MEAN CORPUSCULAR HEMOGLOBIN 30.3 pg (29.0-33.0); MEAN CORPUSCULAR VOLUME 94.7 fl (82.0-101.0); MEAN PLATELET VOLUME 13.9 fl (7.4-10.4); MONOCYTES % 12.5 % (0.0-11.0); NEUTROPHIL # 4.5 10^3/ul (1.6-7.5); NEUTROPHILS % 58.9 % (39.0-77.0); PLATELET COUNT 149 10^3/UL (140-415); POSITIVE DIFF @See below; RED BLOOD COUNT 2.64 10^6/ul (4.70-6.10); RED CELL DISTRIBUTION WIDTH 15.9 % (11.5-14.5)
[2018-04-16 06:24] LABS: WHITE BLOOD COUNT 7.6 10^3/ul (4.8-10.8)
[2018-04-16 06:43] LABS: ANION GAP 10 (5-13); BLOOD UREA NITROGEN 29 mg/dl (7-20); CALCIUM 8.9 mg/dl (8.4-10.2); CARBON DIOXIDE 32 mmol/L (21-31); CHLORIDE 94 mmol/L (97-110); CREATININE 1.24 mg/dl (0.61-1.24); Estimated GFR 58 mL/min (>60); GLUCOSE 145 mg/dl (70-220); POTASSIUM 4.6 mmol/L (3.5-5.1); SODIUM 136 mmol/L (135-144)
[2018-04-16] MEDS: FUROSEMIDE 40 MG INJ IV (08:45)
[2018-04-16] MEDS: LISINOPRIL 5 MG TAB PO (08:46)
[2018-04-16] MEDS: SPIRONOLACTONE 25 MG TAB PO (08:46)
[2018-04-16] MEDS: COLLAGENASE 5 GM (UD JAR) TOP ×2 (08:46→10:04)
[2018-04-16] MEDS: BALSAM PERU/CASTOR OIL 60 GM TUBE TOP ×2 (08:47→21:00)
[2018-04-16] MEDS: ATORVASTATIN 10 MG TAB NGT (21:00)
[2018-04-17] MEDS: ACCU-CHEK XX (01:22)
[2018-04-17] MEDS: PANTOPRAZOLE 40 MG INJ IV ×2 (05:23→17:16)
[2018-04-17] MEDS: INSULIN ASPART [NOVOLOG] 3 ML PEN SC ×3 (05:31→17:20)
[2018-04-17 08:19] LABS: ANION GAP 9 (5-13); BLOOD UREA NITROGEN 27 mg/dl (7-20); CARBON DIOXIDE 34 mmol/L (21-31); CHLORIDE 94 mmol/L (97-110); CREATININE 1.12 mg/dl (0.61-1.24); Estimated GFR > 60 mL/min (>60); GLUCOSE 137 mg/dl (70-220); POTASSIUM 4.2 mmol/L (3.5-5.1); SODIUM 137 mmol/L (135-144)
[2018-04-17] MEDS: COLLAGENASE 5 GM (UD JAR) TOP (09:05)
[2018-04-17] MEDS: FUROSEMIDE 40 MG INJ IV (09:08)
[2018-04-17] MEDS: LISINOPRIL 5 MG TAB PO (09:08)
[2018-04-17] MEDS: SPIRONOLACTONE 25 MG TAB PO (09:08)
[2018-04-17] MEDS: BALSAM PERU/CASTOR OIL 60 GM TUBE TOP ×2 (09:09→20:39)
[2018-04-17 14:16] LABS: ABNORMAL IP MESSAGE 1; ADD MAN DIFF? NO; BASOPHILS % 0.3 % (0.0-2.0); EOSINOPHILS # 0.6 10^3/ul (0.0-0.5); EOSINOPHILS % 8.8 % (0.0-7.0); HEMATOCRIT 24.3 % (42.0-52.0); HEMOGLOBIN 7.7 g/dl (14.0-18.0); LYMPHOCYTES # 1.6 10^3/ul (0.8-2.9); LYMPHOCYTES % 26.4 % (15.0-51.0); MEAN CORPUSCULAR HEMOGLOBIN 30.1 pg (29.0-33.0); MEAN CORPUSCULAR HGB CONC 31.7 g/dl (32.0-37.0); MEAN CORPUSCULAR VOLUME 94.9 fl (82.0-101.0); MEAN PLATELET VOLUME 13.4 fl (7.4-10.4); MONOCYTE # 0.8 10^3/ul (0.3-0.9); NEUTROPHIL # 3.2 10^3/ul (1.6-7.5); NEUTROPHILS % 51.3 % (39.0-77.0); PLATELET COUNT 153 10^3/UL (140-415); POSITIVE DIFF @See below; RED BLOOD COUNT 2.56 10^6/ul (4.70-6.10); RED CELL DISTRIBUTION WIDTH 15.5 % (11.5-14.5)
[2018-04-17 14:16] LABS: WHITE BLOOD COUNT 6.2 10^3/ul (4.8-10.8)
[2018-04-17] MEDS: ATORVASTATIN 10 MG TAB NGT (20:38)
[2018-04-17] MEDS: LORAZEPAM 2 MG INJ IV (21:56)
[2018-04-18] MEDS: INSULIN ASPART [NOVOLOG] 3 ML PEN SC ×4 (00:27→17:16)
[2018-04-18] MEDS: ACCU-CHEK XX (02:00)
[2018-04-18] MEDS: PANTOPRAZOLE 40 MG INJ IV ×2 (05:17→17:20)
[2018-04-18 06:58] LABS: ADD MAN DIFF? NO
[2018-04-18 07:06] LABS: WHITE BLOOD COUNT 5.9 10^3/ul (4.8-10.8)
[2018-04-18 07:06] LABS: ABNORMAL IP MESSAGE 1; BASOPHILS % 0.5 % (0.0-2.0); EOSINOPHILS # 0.6 10^3/ul (0.0-0.5); EOSINOPHILS % 9.4 % (0.0-7.0); HEMATOCRIT 22.8 % (42.0-52.0); HEMOGLOBIN 7.3 g/dl (14.0-18.0); LYMPHOCYTES # 1.8 10^3/ul (0.8-2.9); LYMPHOCYTES % 30.2 % (15.0-51.0); MEAN CORPUSCULAR HEMOGLOBIN 30.3 pg (29.0-33.0); MEAN CORPUSCULAR VOLUME 94.6 fl (82.0-101.0); MEAN PLATELET VOLUME 14.3 fl (7.4-10.4); MONOCYTE # 0.8 10^3/ul (0.3-0.9); MONOCYTES % 13.7 % (0.0-11.0); NEUTROPHIL # 2.7 10^3/ul (1.6-7.5); NEUTROPHILS % 46.2 % (39.0-77.0); PLATELET COUNT 139 10^3/UL (140-415); POSITIVE DIFF @See below; RED BLOOD COUNT 2.41 10^6/ul (4.70-6.10); RED CELL DISTRIBUTION WIDTH 15.4 % (11.5-14.5)
[2018-04-18 07:43] LABS: ANION GAP 9 (5-13); BLOOD UREA NITROGEN 29 mg/dl (7-20); CARBON DIOXIDE 32 mmol/L (21-31); CHLORIDE 95 mmol/L (97-110); Estimated GFR > 60 mL/min (>60); GLUCOSE 121 mg/dl (70-220); POTASSIUM 4.1 mmol/L (3.5-5.1); SODIUM 136 mmol/L (135-144)
[2018-04-18] MEDS: COLLAGENASE 5 GM (UD JAR) TOP (08:20)
[2018-04-18] MEDS: SPIRONOLACTONE 25 MG TAB PO (08:20)
[2018-04-18] MEDS: BALSAM PERU/CASTOR OIL 60 GM TUBE TOP ×2 (08:21→21:03)
[2018-04-18] MEDS: FUROSEMIDE 40 MG INJ IV (08:25)
[2018-04-18] MEDS: LISINOPRIL 5 MG TAB PO (08:26)
[2018-04-18] MEDS: ATORVASTATIN 10 MG TAB NGT (21:00)
[2018-04-18] MEDS: LORAZEPAM 2 MG INJ IV (23:52)
[2018-04-19] MEDS: ACCU-CHEK XX (02:00)
[2018-04-19] MEDS: LORAZEPAM 2 MG INJ IV ×2 (04:24→10:49)
[2018-04-19] MEDS: INSULIN ASPART [NOVOLOG] 3 ML PEN SC ×4 (05:55→17:47)
[2018-04-19] MEDS: PANTOPRAZOLE 40 MG INJ IV ×2 (05:55→17:44)
[2018-04-19 06:11] LABS: WHITE BLOOD COUNT 6.5 10^3/ul (4.8-10.8)
[2018-04-19 06:11] LABS: ABNORMAL IP MESSAGE 1; ADD MAN DIFF? NO; BASOPHILS % 0.6 % (0.0-2.0); EOSINOPHILS # 0.5 10^3/ul (0.0-0.5); EOSINOPHILS % 7.2 % (0.0-7.0); HEMATOCRIT 25.1 % (42.0-52.0); LYMPHOCYTES # 1.6 10^3/ul (0.8-2.9); LYMPHOCYTES % 24.2 % (15.0-51.0); MEAN CORPUSCULAR HEMOGLOBIN 30.2 pg (29.0-33.0); MEAN CORPUSCULAR HGB CONC 31.9 g/dl (32.0-37.0); MEAN CORPUSCULAR VOLUME 94.7 fl (82.0-101.0); MEAN PLATELET VOLUME 13.8 fl (7.4-10.4); MONOCYTE # 0.9 10^3/ul (0.3-0.9); MONOCYTES % 14.4 % (0.0-11.0); NEUTROPHIL # 3.5 10^3/ul (1.6-7.5); NEUTROPHILS % 53.3 % (39.0-77.0); PLATELET COUNT 147 10^3/UL (140-415); POSITIVE DIFF @See below; RED BLOOD COUNT 2.65 10^6/ul (4.70-6.10); RED CELL DISTRIBUTION WIDTH 15.4 % (11.5-14.5)
[2018-04-19 06:34] LABS: INR 1.14; PROTIME 14.8 Sec (11.9-14.9); PT RATIO 1.2
[2018-04-19] MEDS: COLLAGENASE 5 GM (UD JAR) TOP (09:08)
[2018-04-19] MEDS: LISINOPRIL 5 MG TAB PO (09:09)
[2018-04-19] MEDS: SPIRONOLACTONE 25 MG TAB PO (09:09)
[2018-04-19] MEDS: FUROSEMIDE 40 MG INJ IV (09:10)
[2018-04-19] MEDS: BALSAM PERU/CASTOR OIL 60 GM TUBE TOP ×2 (09:11→20:36)
[2018-04-19] MEDS: PHENYLephrine (100 MCG/ML) 5ML SYG (13:28)
[2018-04-19] MEDS: PROPOFOL 20 ML (13:28)
[2018-04-19] MEDS: ALBUTEROL/IPRATROPIUM (NEB) 3 ML AMP NEB (15:54)
[2018-04-19] MEDS: ACETAMINOPHEN 650MG/20.3ML CUP PO (20:36)
[2018-04-19] MEDS: ATORVASTATIN 10 MG TAB NGT (20:36)
[2018-04-20] MEDS: INSULIN ASPART [NOVOLOG] 3 ML PEN SC ×4 (00:48→17:50)
[2018-04-20] MEDS: ACCU-CHEK XX (02:00)
[2018-04-20] MEDS: LORAZEPAM 2 MG INJ IV ×3 (02:31→21:34)
[2018-04-20] MEDS: PANTOPRAZOLE 40 MG INJ IV ×2 (06:01→17:44)
[2018-04-20] MEDS: LISINOPRIL 5 MG TAB PO (08:27)
[2018-04-20] MEDS: COLLAGENASE 5 GM (UD JAR) TOP (08:27)
[2018-04-20] MEDS: BALSAM PERU/CASTOR OIL 60 GM TUBE TOP ×2 (08:28→21:36)
[2018-04-20] MEDS: SPIRONOLACTONE 25 MG TAB PO (08:28)
[2018-04-20] MEDS: FUROSEMIDE 40 MG INJ IV (08:29)
[2018-04-20 09:48] LABS: ADD MAN DIFF? NO
[2018-04-20 09:54] LABS: ABNORMAL IP MESSAGE 1; BASOPHILS % 0.4 % (0.0-2.0); EOSINOPHILS # 0.5 10^3/ul (0.0-0.5); EOSINOPHILS % 6.4 % (0.0-7.0); HEMATOCRIT 23.5 % (42.0-52.0); HEMOGLOBIN 7.5 g/dl (14.0-18.0); LYMPHOCYTES # 1.6 10^3/ul (0.8-2.9); LYMPHOCYTES % 22.4 % (15.0-51.0); MEAN CORPUSCULAR HEMOGLOBIN 30.2 pg (29.0-33.0); MEAN CORPUSCULAR HGB CONC 31.9 g/dl (32.0-37.0); MEAN CORPUSCULAR VOLUME 94.8 fl (82.0-101.0); MEAN PLATELET VOLUME 13.8 fl (7.4-10.4); MONOCYTE # 0.9 10^3/ul (0.3-0.9); NEUTROPHIL # 4.1 10^3/ul (1.6-7.5); NEUTROPHILS % 58.7 % (39.0-77.0); PLATELET COUNT 153 10^3/UL (140-415); POSITIVE DIFF @See below; RED BLOOD COUNT 2.48 10^6/ul (4.70-6.10); RED CELL DISTRIBUTION WIDTH 14.8 % (11.5-14.5)
[2018-04-20 09:54] LABS: WHITE BLOOD COUNT 7.1 10^3/ul (4.8-10.8)
[2018-04-20] MEDS: ATORVASTATIN 10 MG TAB NGT (21:10)
[2018-04-21] MEDS: INSULIN ASPART [NOVOLOG] 3 ML PEN SC ×5 (00:09→23:34)
[2018-04-21] MEDS: ACCU-CHEK XX (01:06)
[2018-04-21] MEDS: PANTOPRAZOLE 40 MG INJ IV ×2 (05:16→17:00)
[2018-04-21 06:16] LABS: ADD MAN DIFF? NO
[2018-04-21 06:25] LABS: WHITE BLOOD COUNT 6.1 10^3/ul (4.8-10.8)
[2018-04-21 06:25] LABS: ABNORMAL IP MESSAGE 1; BASOPHILS % 0.3 % (0.0-2.0); EOSINOPHILS # 0.5 10^3/ul (0.0-0.5); EOSINOPHILS % 7.4 % (0.0-7.0); HEMATOCRIT 21.8 % (42.0-52.0); LYMPHOCYTES # 1.7 10^3/ul (0.8-2.9); MEAN CORPUSCULAR HGB CONC 31.7 g/dl (32.0-37.0); MEAN CORPUSCULAR VOLUME 94.8 fl (82.0-101.0); MONOCYTE # 0.8 10^3/ul (0.3-0.9); MONOCYTES % 12.3 % (0.0-11.0); NEUTROPHIL # 3.2 10^3/ul (1.6-7.5); NEUTROPHILS % 51.8 % (39.0-77.0); PLATELET COUNT 131 10^3/UL (140-415); POSITIVE DIFF @See below; RED CELL DISTRIBUTION WIDTH 14.7 % (11.5-14.5)
[2018-04-21 06:41] LABS: ANION GAP 7 (5-13); BLOOD UREA NITROGEN 32 mg/dl (7-20); CALCIUM 8.9 mg/dl (8.4-10.2); CARBON DIOXIDE 30 mmol/L (21-31); CHLORIDE 99 mmol/L (97-110); CREATININE 1.09 mg/dl (0.61-1.24); Estimated GFR > 60 mL/min (>60); GLUCOSE 140 mg/dl (70-220); POTASSIUM 4.1 mmol/L (3.5-5.1); SODIUM 136 mmol/L (135-144)
[2018-04-21 07:06] LABS: HEMOGLOBIN 6.9 g/dl (14.0-18.0); PATH REVIEW? YES
[2018-04-21] MEDS: SOD CHLORIDE 0.9% 250 ML IV* (07:55)
[2018-04-21] MEDS ORDERED: ASPIRIN (EC) 81 MG TAB PO (09:00)
[2018-04-21] MEDS ORDERED: CLOPIDOGREL 75 MG TAB PO (09:00)
[2018-04-21] MEDS: FUROSEMIDE 40 MG INJ IV (09:00)
[2018-04-21] MEDS: LISINOPRIL 5 MG TAB PO (09:00)
[2018-04-21 09:03] LABS: BAND NEUTROPHILS #M 0.4 10^3/ul (0.0-0.6); BAND NEUTROPHILS % (M) 7 % (0-4); EOSINOPHILS % (M) 8 % (0-7); LYMPHOCYTES #M 1.6 10^3/ul (0.8-2.9); LYMPHOCYTES % (M) 27 % (15-51); MONOCYTE #M 0.4 10^3/ul (0.3-0.9); MONOCYTES % (M) 7 % (0-11); PLATELET ESTIMATE INCREASED; POLYCHROMASIA 1+ (0-0); REACTIVE LYMPHOCYTES #M 0.3 10^3/ul (0.0-0.0); REACTIVE LYMPHOCYTES% (M) 5 % (0-0); SEG NEUT #M 2.8 10^3/ul (1.6-7.5); SEGMENTED NEUTROPHILS (M) % 46 % (39-77); SMUDGE%M 32 % (0-0)
[2018-04-21] MEDS: SPIRONOLACTONE 25 MG TAB PO (09:11)
[2018-04-21] MEDS: COLLAGENASE 5 GM (UD JAR) TOP (09:12)
[2018-04-21] MEDS: LORAZEPAM 2 MG INJ IV ×2 (09:12→20:10)
[2018-04-21] MEDS: BALSAM PERU/CASTOR OIL 60 GM TUBE TOP ×2 (09:13→20:12)
[2018-04-21 10:58] LABS: IMMEDIATE SPIN CROSSMATCH 1 2
[2018-04-21] MEDS: PEG/ELECTROLYTES 4L BTL PO ×3 (13:00→17:59)
[2018-04-21] MEDS: ATORVASTATIN 10 MG TAB NGT (20:10)
[2018-04-22] MEDS: ACCU-CHEK XX ×2 (01:05→23:29)
[2018-04-22] MEDS: LORAZEPAM 2 MG INJ IV ×2 (04:49→23:30)
[2018-04-22] MEDS: PANTOPRAZOLE 40 MG INJ IV ×2 (05:13→17:40)
[2018-04-22] MEDS: INSULIN ASPART [NOVOLOG] 3 ML PEN SC ×4 (05:14→23:29)
[2018-04-22] MEDS: morphine 2 MG INJ IV (06:03)
[2018-04-22 07:21] LABS: ADD MAN DIFF? NO
[2018-04-22 07:29] LABS: ABNORMAL IP MESSAGE 1; BASOPHIL # 0.1 10^3/ul (0.0-0.1); BASOPHILS % 0.8 % (0.0-2.0); EOSINOPHILS # 0.4 10^3/ul (0.0-0.5); EOSINOPHILS % 5.5 % (0.0-7.0); HEMATOCRIT 28.2 % (42.0-52.0); HEMOGLOBIN 9.1 g/dl (14.0-18.0); LYMPHOCYTES # 1.5 10^3/ul (0.8-2.9); LYMPHOCYTES % 23.7 % (15.0-51.0); MEAN CORPUSCULAR HEMOGLOBIN 29.9 pg (29.0-33.0); MEAN CORPUSCULAR HGB CONC 32.3 g/dl (32.0-37.0); MEAN CORPUSCULAR VOLUME 92.8 fl (82.0-101.0); MEAN PLATELET VOLUME 13.5 fl (7.4-10.4); MONOCYTE # 0.8 10^3/ul (0.3-0.9); MONOCYTES % 12.2 % (0.0-11.0); NEUTROPHIL # 3.7 10^3/ul (1.6-7.5); NEUTROPHILS % 57.5 % (39.0-77.0); PLATELET COUNT 134 10^3/UL (140-415); POSITIVE DIFF @See below; RED BLOOD COUNT 3.04 10^6/ul (4.70-6.10); RED CELL DISTRIBUTION WIDTH 15.7 % (11.5-14.5)
[2018-04-22 07:29] LABS: WHITE BLOOD COUNT 6.5 10^3/ul (4.8-10.8)
[2018-04-22] MEDS: COLLAGENASE 5 GM (UD JAR) TOP (09:30)
[2018-04-22] MEDS: SPIRONOLACTONE 25 MG TAB PO (09:31)
[2018-04-22] MEDS: LISINOPRIL 5 MG TAB PO (09:31)
[2018-04-22] MEDS: FUROSEMIDE 40 MG INJ IV (09:31)
[2018-04-22] MEDS: BALSAM PERU/CASTOR OIL 60 GM TUBE TOP ×2 (09:32→20:54)
[2018-04-22] MEDS: ATORVASTATIN 10 MG TAB NGT (20:54)
[2018-04-23] MEDS: ALBUTEROL/IPRATROPIUM (NEB) 3 ML AMP NEB (05:04)
[2018-04-23] MEDS: INSULIN ASPART [NOVOLOG] 3 ML PEN SC ×4 (05:20→23:30)
[2018-04-23] MEDS: PANTOPRAZOLE 40 MG INJ IV ×2 (05:20→18:00)
[2018-04-23 06:12] LABS: ADD MAN DIFF? NO
[2018-04-23 06:23] LABS: WHITE BLOOD COUNT 6.1 10^3/ul (4.8-10.8)
[2018-04-23 06:23] LABS: ABNORMAL IP MESSAGE 1; BASOPHILS % 0.7 % (0.0-2.0); EOSINOPHILS # 0.3 10^3/ul (0.0-0.5); EOSINOPHILS % 5.1 % (0.0-7.0); HEMATOCRIT 29.9 % (42.0-52.0); HEMOGLOBIN 9.5 g/dl (14.0-18.0); LYMPHOCYTES # 1.5 10^3/ul (0.8-2.9); LYMPHOCYTES % 25.4 % (15.0-51.0); MEAN CORPUSCULAR HEMOGLOBIN 29.9 pg (29.0-33.0); MEAN CORPUSCULAR HGB CONC 31.8 g/dl (32.0-37.0); MEAN PLATELET VOLUME 13.6 fl (7.4-10.4); MONOCYTE # 0.7 10^3/ul (0.3-0.9); MONOCYTES % 11.5 % (0.0-11.0); NEUTROPHIL # 3.5 10^3/ul (1.6-7.5); NEUTROPHILS % 57.1 % (39.0-77.0); PLATELET COUNT 143 10^3/UL (140-415); POSITIVE DIFF @See below; RED BLOOD COUNT 3.18 10^6/ul (4.70-6.10); RED CELL DISTRIBUTION WIDTH 15.2 % (11.5-14.5)
[2018-04-23] MEDS: FUROSEMIDE 40 MG INJ IV (09:00)
[2018-04-23] MEDS: LISINOPRIL 5 MG TAB PO (09:00)
[2018-04-23] MEDS: SPIRONOLACTONE 25 MG TAB PO (09:57)
[2018-04-23] MEDS: COLLAGENASE 5 GM (UD JAR) TOP (09:58)
[2018-04-23] MEDS: BALSAM PERU/CASTOR OIL 60 GM TUBE TOP ×2 (09:58→20:56)
[2018-04-23] MEDS: SCOPOLAMINE 1.5 MG PATCH TRANSDERM (15:00)
[2018-04-23] MEDS: ATORVASTATIN 10 MG TAB NGT (20:55)
[2018-04-23] MEDS: LORAZEPAM 2 MG INJ IV (22:26)
[2018-04-23] MEDS: ACCU-CHEK XX (23:30)
[2018-04-24] MEDS: PANTOPRAZOLE 40 MG INJ IV (05:44)
[2018-04-24] MEDS: INSULIN ASPART [NOVOLOG] 3 ML PEN SC ×3 (05:50→18:00)
[2018-04-24] MEDS: FUROSEMIDE 40 MG INJ IV (08:08)
[2018-04-24] MEDS: SPIRONOLACTONE 25 MG TAB PO (08:13)
[2018-04-24] MEDS: LISINOPRIL 5 MG TAB PO (08:18)
[2018-04-24] MEDS: COLLAGENASE 5 GM (UD JAR) TOP (08:22)
[2018-04-24] MEDS: BALSAM PERU/CASTOR OIL 60 GM TUBE TOP ×2 (08:22→21:10)
[2018-04-24] MEDS: FAMOTIDINE 20 MG TAB GTB ×2 (14:40→21:10)
[2018-04-24 19:06] LABS: ADD MAN DIFF? NO
[2018-04-24 19:10] LABS: ABNORMAL IP MESSAGE 1; BASOPHILS % 0.6 % (0.0-2.0); EOSINOPHILS # 0.4 10^3/ul (0.0-0.5); EOSINOPHILS % 5.4 % (0.0-7.0); HEMATOCRIT 31.8 % (42.0-52.0); HEMOGLOBIN 10.1 g/dl (14.0-18.0); LYMPHOCYTES # 1.8 10^3/ul (0.8-2.9); LYMPHOCYTES % 27.8 % (15.0-51.0); MEAN CORPUSCULAR HEMOGLOBIN 29.8 pg (29.0-33.0); MEAN CORPUSCULAR HGB CONC 31.8 g/dl (32.0-37.0); MEAN CORPUSCULAR VOLUME 93.8 fl (82.0-101.0); MEAN PLATELET VOLUME 13.3 fl (7.4-10.4); MONOCYTE # 0.7 10^3/ul (0.3-0.9); MONOCYTES % 11.5 % (0.0-11.0); NEUTROPHIL # 3.5 10^3/ul (1.6-7.5); NEUTROPHILS % 54.4 % (39.0-77.0); PLATELET COUNT 150 10^3/UL (140-415); POSITIVE DIFF @See below; RED BLOOD COUNT 3.39 10^6/ul (4.70-6.10); RED CELL DISTRIBUTION WIDTH 14.6 % (11.5-14.5)
[2018-04-24 19:10] LABS: WHITE BLOOD COUNT 6.4 10^3/ul (4.8-10.8)
[2018-04-24] MEDS: ATORVASTATIN 10 MG TAB NGT (21:10)
[2018-04-25] MEDS: INSULIN ASPART [NOVOLOG] 3 ML PEN SC ×4 (06:00→18:04)
[2018-04-25 06:53] LABS: B-TYPE NATRIURETIC PEPTIDE 6880 PG/ML (0-125)
[2018-04-25 07:40] LABS: HEMOGLOBIN A1C 5.5 % (0-5.9)
[2018-04-25] MEDS: FAMOTIDINE 20 MG TAB GTB ×2 (08:40→20:40)
[2018-04-25] MEDS: COLLAGENASE 5 GM (UD JAR) TOP (08:43)
[2018-04-25] MEDS: LISINOPRIL 5 MG TAB PO (08:43)
[2018-04-25] MEDS: FUROSEMIDE 40 MG INJ IV (08:44)
[2018-04-25] MEDS: SPIRONOLACTONE 25 MG TAB PO (08:44)
[2018-04-25] MEDS: BALSAM PERU/CASTOR OIL 60 GM TUBE TOP ×2 (08:45→20:41)
[2018-04-25] MEDS: ATORVASTATIN 10 MG TAB NGT (20:40)
[2018-04-26 05:38] LABS: ADD MAN DIFF? NO
[2018-04-26 05:43] LABS: ABNORMAL IP MESSAGE 1; BASOPHIL # 0.1 10^3/ul (0.0-0.1); BASOPHILS % 0.6 % (0.0-2.0); EOSINOPHILS # 0.2 10^3/ul (0.0-0.5); EOSINOPHILS % 1.6 % (0.0-7.0); HEMATOCRIT 32.3 % (42.0-52.0); HEMOGLOBIN 10.3 g/dl (14.0-18.0); LYMPHOCYTES # 2.1 10^3/ul (0.8-2.9); LYMPHOCYTES % 16.5 % (15.0-51.0); MEAN CORPUSCULAR HEMOGLOBIN 29.8 pg (29.0-33.0); MEAN CORPUSCULAR HGB CONC 31.9 g/dl (32.0-37.0); MEAN CORPUSCULAR VOLUME 93.4 fl (82.0-101.0); MEAN PLATELET VOLUME 13.5 fl (7.4-10.4); MONOCYTE # 1.4 10^3/ul (0.3-0.9); NEUTROPHIL # 8.8 10^3/ul (1.6-7.5); NEUTROPHILS % 69.8 % (39.0-77.0); PLATELET COUNT 157 10^3/UL (140-415); POSITIVE DIFF @See below; RED BLOOD COUNT 3.46 10^6/ul (4.70-6.10); RED CELL DISTRIBUTION WIDTH 14.4 % (11.5-14.5)
[2018-04-26 05:43] LABS: WHITE BLOOD COUNT 12.6 10^3/ul (4.8-10.8)
[2018-04-26] MEDS: INSULIN ASPART [NOVOLOG] 3 ML PEN SC ×5 (06:00→17:24)
[2018-04-26 06:27] LABS: MAGNESIUM 1.7 mg/dl (1.7-2.5)
[2018-04-26 06:27] LABS: PHOSPHORUS 4.7 mg/dl (2.5-4.9)
[2018-04-26 06:43] LABS: ANION GAP 11 (5-13); BLOOD UREA NITROGEN 28 mg/dl (7-20); CALCIUM 9.5 mg/dl (8.4-10.2); CARBON DIOXIDE 32 mmol/L (21-31); CHLORIDE 94 mmol/L (97-110); CREATININE 1.08 mg/dl (0.61-1.24); Estimated GFR > 60 mL/min (>60); GLUCOSE 150 mg/dl (70-220); POTASSIUM 4.6 mmol/L (3.5-5.1); SODIUM 137 mmol/L (135-144)
[2018-04-26] MEDS: SPIRONOLACTONE 25 MG TAB PO (08:47)
[2018-04-26] MEDS: FUROSEMIDE 40 MG INJ IV (08:47)
[2018-04-26] MEDS: FAMOTIDINE 20 MG TAB GTB (08:47)
[2018-04-26] MEDS: COLLAGENASE 5 GM (UD JAR) TOP (08:47)
[2018-04-26] MEDS: LISINOPRIL 5 MG TAB PO (08:47)
[2018-04-26] MEDS: BALSAM PERU/CASTOR OIL 60 GM TUBE TOP ×2 (08:48→21:46)
[2018-04-26] MEDS ORDERED: morphine 2 MG INJ IV (11:00)
[2018-04-26] MEDS: SCOPOLAMINE 1.5 MG PATCH TRANSDERM (15:06)
[2018-04-26] MEDS: PANTOPRAZOLE 40 MG INJ IV (17:16)
[2018-04-26] MEDS: ATORVASTATIN 10 MG TAB NGT (21:44)
[2018-04-27] MEDS: PANTOPRAZOLE 40 MG INJ IV ×2 (06:36→17:09)
[2018-04-27] MEDS: INSULIN ASPART [NOVOLOG] 3 ML PEN SC ×4 (06:47→17:13)
[2018-04-27] MEDS: SPIRONOLACTONE 25 MG TAB PO (08:45)
[2018-04-27] MEDS: LISINOPRIL 5 MG TAB PO (08:45)
[2018-04-27] MEDS: COLLAGENASE 5 GM (UD JAR) TOP (08:45)
[2018-04-27] MEDS: FUROSEMIDE 40 MG INJ IV (08:45)
[2018-04-27] MEDS: BALSAM PERU/CASTOR OIL 60 GM TUBE TOP ×2 (09:00→21:14)
[2018-04-27] MEDS: ATORVASTATIN 10 MG TAB NGT (21:14)
[2018-04-28] MEDS: INSULIN ASPART [NOVOLOG] 3 ML PEN SC ×4 (01:00→17:50)
[2018-04-28] MEDS: PANTOPRAZOLE 40 MG INJ IV ×2 (05:08→17:42)
[2018-04-28] MEDS: OXYCODONE/ACETAMINOPHEN (5/325) TAB PO (05:16)
[2018-04-28 06:28] LABS: ADD MAN DIFF? NO
[2018-04-28 06:52] LABS: WHITE BLOOD COUNT 6.8 10^3/ul (4.8-10.8)
[2018-04-28 06:52] LABS: ABNORMAL IP MESSAGE 1; BASOPHILS % 0.6 % (0.0-2.0); EOSINOPHILS # 0.3 10^3/ul (0.0-0.5); EOSINOPHILS % 3.8 % (0.0-7.0); HEMATOCRIT 31.5 % (42.0-52.0); HEMOGLOBIN 9.9 g/dl (14.0-18.0); LYMPHOCYTES # 1.9 10^3/ul (0.8-2.9); LYMPHOCYTES % 28.4 % (15.0-51.0); MEAN CORPUSCULAR HEMOGLOBIN 29.3 pg (29.0-33.0); MEAN CORPUSCULAR HGB CONC 31.4 g/dl (32.0-37.0); MEAN CORPUSCULAR VOLUME 93.2 fl (82.0-101.0); MEAN PLATELET VOLUME 13.3 fl (7.4-10.4); MONOCYTE # 0.8 10^3/ul (0.3-0.9); MONOCYTES % 11.6 % (0.0-11.0); NEUTROPHIL # 3.8 10^3/ul (1.6-7.5); NEUTROPHILS % 55.3 % (39.0-77.0); PLATELET COUNT 158 10^3/UL (140-415); POSITIVE DIFF @See below; RED BLOOD COUNT 3.38 10^6/ul (4.70-6.10); RED CELL DISTRIBUTION WIDTH 14.2 % (11.5-14.5)
[2018-04-28] MEDS: SPIRONOLACTONE 25 MG TAB PO (08:42)
[2018-04-28] MEDS: COLLAGENASE 5 GM (UD JAR) TOP (08:42)
[2018-04-28] MEDS: BALSAM PERU/CASTOR OIL 60 GM TUBE TOP ×2 (08:43→22:10)
[2018-04-28] MEDS: FUROSEMIDE 40 MG INJ IV (08:43)
[2018-04-28] MEDS: LISINOPRIL 5 MG TAB PO (08:44)
[2018-04-28] MEDS: BARIUM SULFATE 135 ML (E-Z HD) PO (11:35)
[2018-04-28] MEDS: ATORVASTATIN 10 MG TAB NGT (22:10)
[2018-04-29] MEDS: INSULIN ASPART [NOVOLOG] 3 ML PEN SC ×5 (00:51→23:20)
[2018-04-29] MEDS: PANTOPRAZOLE 40 MG INJ IV ×2 (05:37→17:08)
[2018-04-29] MEDS: FUROSEMIDE 40 MG INJ IV (09:30)
[2018-04-29] MEDS: BALSAM PERU/CASTOR OIL 60 GM TUBE TOP ×2 (09:31→21:38)
[2018-04-29] MEDS: LISINOPRIL 5 MG TAB PO (09:31)
[2018-04-29] MEDS: SPIRONOLACTONE 25 MG TAB PO (09:31)
[2018-04-29] MEDS: COLLAGENASE 5 GM (UD JAR) TOP (09:31)
[2018-04-29] MEDS: SCOPOLAMINE 1.5 MG PATCH TRANSDERM (15:43)
[2018-04-29] MEDS: ATORVASTATIN 10 MG TAB NGT (21:38)
[2018-04-30] MEDS: PANTOPRAZOLE 40 MG INJ IV ×2 (05:24→17:22)
[2018-04-30] MEDS: INSULIN ASPART [NOVOLOG] 3 ML PEN SC ×3 (05:35→17:24)
[2018-04-30 06:25] LABS: ADD MAN DIFF? NO
[2018-04-30 06:29] LABS: WHITE BLOOD COUNT 8.2 10^3/ul (4.8-10.8)
[2018-04-30 06:29] LABS: BASOPHILS % 0.5 % (0.0-2.0); EOSINOPHILS # 0.3 10^3/ul (0.0-0.5); EOSINOPHILS % 3.9 % (0.0-7.0); HEMATOCRIT 32.6 % (42.0-52.0); HEMOGLOBIN 10.5 g/dl (14.0-18.0); LYMPHOCYTES # 2.3 10^3/ul (0.8-2.9); LYMPHOCYTES % 28.6 % (15.0-51.0); MEAN CORPUSCULAR HEMOGLOBIN 30.2 pg (29.0-33.0); MEAN CORPUSCULAR HGB CONC 32.2 g/dl (32.0-37.0); MEAN CORPUSCULAR VOLUME 93.7 fl (82.0-101.0); MONOCYTES % 12.1 % (0.0-11.0); NEUTROPHIL # 4.5 10^3/ul (1.6-7.5); NEUTROPHILS % 54.7 % (39.0-77.0); PLATELET COUNT 193 10^3/UL (140-415); RED BLOOD COUNT 3.48 10^6/ul (4.70-6.10); RED CELL DISTRIBUTION WIDTH 14.1 % (11.5-14.5)
[2018-04-30 07:40] LABS: ANION GAP 12 (5-13); BLOOD UREA NITROGEN 40 mg/dl (7-20); CALCIUM 9.8 mg/dl (8.4-10.2); CARBON DIOXIDE 38 mmol/L (21-31); CHLORIDE 90 mmol/L (97-110); CREATININE 1.07 mg/dl (0.61-1.24); Estimated GFR > 60 mL/min (>60); GLUCOSE 151 mg/dl (70-220); POTASSIUM 4.2 mmol/L (3.5-5.1); SODIUM 140 mmol/L (135-144)
[2018-04-30] MEDS: LISINOPRIL 5 MG TAB PO (09:00)
[2018-04-30] MEDS: SPIRONOLACTONE 25 MG TAB PO (09:00)
[2018-04-30] MEDS: FUROSEMIDE 40 MG INJ IV (09:00)
[2018-04-30] MEDS: COLLAGENASE 5 GM (UD JAR) TOP (09:35)
[2018-04-30] MEDS: ATORVASTATIN 10 MG TAB NGT (21:46)
[2018-05-01] MEDS: INSULIN ASPART [NOVOLOG] 3 ML PEN SC ×4 (00:50→18:56)
[2018-05-01] MEDS: PANTOPRAZOLE 40 MG INJ IV ×2 (06:55→17:39)
[2018-05-01] MEDS: LISINOPRIL 5 MG TAB PO (09:00)
[2018-05-01] MEDS: ASPIRIN (EC) 81 MG TAB PO (09:00)
[2018-05-01] MEDS: SPIRONOLACTONE 25 MG TAB PO (09:00)
[2018-05-01] MEDS: COLLAGENASE 5 GM (UD JAR) TOP (10:15)
[2018-05-01] MEDS: ATORVASTATIN 10 MG TAB NGT (21:37)
[2018-05-02] MEDS: PANTOPRAZOLE 40 MG INJ IV ×2 (05:42→17:55)
[2018-05-02] MEDS: INSULIN ASPART [NOVOLOG] 3 ML PEN SC ×4 (05:48→17:58)
[2018-05-02] MEDS: SPIRONOLACTONE 25 MG TAB PO (08:45)
[2018-05-02] MEDS: ASPIRIN (EC) 81 MG TAB PO (08:45)
[2018-05-02] MEDS: LISINOPRIL 5 MG TAB PO (08:46)
[2018-05-02] MEDS: COLLAGENASE 5 GM (UD JAR) TOP (08:48)
[2018-05-02] MEDS: SCOPOLAMINE 1.5 MG PATCH TRANSDERM (15:36)
[2018-05-02] MEDS: ATORVASTATIN 10 MG TAB NGT (20:52)
[2018-05-03] MEDS: INSULIN ASPART [NOVOLOG] 3 ML PEN SC ×4 (00:33→18:17)
[2018-05-03] MEDS: PANTOPRAZOLE 40 MG INJ IV ×2 (05:34→18:11)
[2018-05-03] MEDS: ASPIRIN (EC) 81 MG TAB PO (08:53)
[2018-05-03] MEDS: COLLAGENASE 5 GM (UD JAR) TOP (08:54)
[2018-05-03] MEDS: LISINOPRIL 5 MG TAB PO (08:54)
[2018-05-03] MEDS: SPIRONOLACTONE 25 MG TAB PO (08:55)
[2018-05-03] MEDS: ATORVASTATIN 10 MG TAB NGT (20:49)
[2018-05-04] MEDS: INSULIN ASPART [NOVOLOG] 3 ML PEN SC ×5 (06:15→23:43)
[2018-05-04] MEDS: PANTOPRAZOLE 40 MG INJ IV ×2 (06:15→17:56)
[2018-05-04 07:32] LABS: ADD MAN DIFF? NO
[2018-05-04 07:37] LABS: WHITE BLOOD COUNT 5.8 10^3/ul (4.8-10.8)
[2018-05-04 07:37] LABS: ABNORMAL IP MESSAGE 1; BASOPHILS % 0.5 % (0.0-2.0); EOSINOPHILS # 0.3 10^3/ul (0.0-0.5); EOSINOPHILS % 4.3 % (0.0-7.0); HEMATOCRIT 30.4 % (42.0-52.0); HEMOGLOBIN 9.5 g/dl (14.0-18.0); LYMPHOCYTES # 1.8 10^3/ul (0.8-2.9); LYMPHOCYTES % 31.8 % (15.0-51.0); MEAN CORPUSCULAR HEMOGLOBIN 29.5 pg (29.0-33.0); MEAN CORPUSCULAR HGB CONC 31.3 g/dl (32.0-37.0); MEAN CORPUSCULAR VOLUME 94.4 fl (82.0-101.0); MEAN PLATELET VOLUME 13.3 fl (7.4-10.4); MONOCYTE # 0.8 10^3/ul (0.3-0.9); NEUTROPHIL # 2.9 10^3/ul (1.6-7.5); NEUTROPHILS % 50.2 % (39.0-77.0); PLATELET COUNT 173 10^3/UL (140-415); POSITIVE DIFF @See below; RED BLOOD COUNT 3.22 10^6/ul (4.70-6.10); RED CELL DISTRIBUTION WIDTH 13.8 % (11.5-14.5)
[2018-05-04 07:54] LABS: MAGNESIUM 1.9 mg/dl (1.7-2.5)
[2018-05-04 07:54] LABS: PHOSPHORUS 5.5 mg/dl (2.5-4.9)
[2018-05-04 07:57] LABS: ANION GAP 8 (5-13); BLOOD UREA NITROGEN 41 mg/dl (7-20); CALCIUM 9.6 mg/dl (8.4-10.2); CARBON DIOXIDE 38 mmol/L (21-31); CHLORIDE 92 mmol/L (97-110); CREATININE 1.07 mg/dl (0.61-1.24); Estimated GFR > 60 mL/min (>60); GLUCOSE 148 mg/dl (70-220); POTASSIUM 3.8 mmol/L (3.5-5.1); SODIUM 138 mmol/L (135-144)
[2018-05-04] MEDS: ASPIRIN (EC) 81 MG TAB PO (09:00)
[2018-05-04] MEDS: LISINOPRIL 5 MG TAB PO (09:20)
[2018-05-04] MEDS: SPIRONOLACTONE 25 MG TAB PO (09:21)
[2018-05-04] MEDS: COLLAGENASE 5 GM (UD JAR) TOP (09:22)
[2018-05-04] MEDS: FUROSEMIDE 40 MG INJ IV (13:57)
[2018-05-04] MEDS: ATORVASTATIN 10 MG TAB NGT (20:13)
[2018-05-05] MEDS: INSULIN ASPART [NOVOLOG] 3 ML PEN SC ×3 (05:28→17:46)
[2018-05-05] MEDS: PANTOPRAZOLE 40 MG INJ IV ×2 (05:28→17:42)
[2018-05-05] MEDS: LISINOPRIL 5 MG TAB PO (08:50)
[2018-05-05] MEDS: ASPIRIN (EC) 81 MG TAB PO (08:51)
[2018-05-05] MEDS: COLLAGENASE 5 GM (UD JAR) TOP (08:52)
[2018-05-05] MEDS: SCOPOLAMINE 1.5 MG PATCH TRANSDERM (16:44)
[2018-05-06] MEDS ORDERED: FUROSEMIDE 20 MG TAB PO (09:00)
[2018-05-06] MEDS ORDERED: CLOPIDOGREL 75 MG TAB PO (09:00)
== END 2018-05-05 18:10 | DRG 3 ==
LOC: TEL 04-06 03:58 → 2NE 05-01 14:20 → E/R 17:58 → ICU 04-06 13:15
PROC: 0B110F4 Bypass Trachea to Cutaneous with Tracheostomy Device, Open Approach (ICD-10-PCS; principal; 2018-03-30 11:45)
PROC: 02703ZZ Dilation of Coronary Artery, One Artery, Percutaneous Approach (ICD-10-PCS; 2018-03-30 11:45)
PROC: 5A1955Z Respiratory Ventilation, Greater than 96 Consecutive Hours (ICD-10-PCS; 2018-03-30 11:45)
PROC: 0BH17EZ Insertion of Endotracheal Airway into Trachea, Via Natural or Artificial Opening (ICD-10-PCS; 2018-03-30 11:45)
PROC: 5A1955Z Respiratory Ventilation, Greater than 96 Consecutive Hours (ICD-10-PCS; 2018-03-30 11:45)
PROC: 0BH17EZ Insertion of Endotracheal Airway into Trachea, Via Natural or Artificial Opening (ICD-10-PCS; 2018-03-30 11:45)
PROC: B211YZZ Fluoroscopy of Multiple Coronary Arteries using Other Contrast (ICD-10-PCS; 2018-03-30 11:45)
PROC: 4A133R1 Monitoring of Arterial Saturation, Peripheral, Percutaneous Approach (ICD-10-PCS; 2018-03-30 11:45)
PROC: 02HV33Z Insertion of Infusion Device into Superior Vena Cava, Percutaneous Approach (ICD-10-PCS; 2018-03-30 11:45)
PROC: B54MZZA Ultrasonography of Right Upper Extremity Veins, Guidance (ICD-10-PCS; 2018-03-30 11:45)
PROC: 0DH63UZ Insertion of Feeding Device into Stomach, Percutaneous Approach (ICD-10-PCS; 2018-03-30 11:45)
PROC: 0DB98ZX Excision of Duodenum, Via Natural or Artificial Opening Endoscopic, Diagnostic (ICD-10-PCS; 2018-03-30 11:45)
PROC: 0DBH8ZX Excision of Cecum, Via Natural or Artificial Opening Endoscopic, Diagnostic (ICD-10-PCS; 2018-03-30 11:45)
PROC: 0DBL8ZX Excision of Transverse Colon, Via Natural or Artificial Opening Endoscopic, Diagnostic (ICD-10-PCS; 2018-03-30 11:45)
PROC: 30243N1 Transfusion of Nonautologous Red Blood Cells into Central Vein, Percutaneous Approach (ICD-10-PCS; 2018-03-30 11:45)
PROC: 5A09457 Assistance with Respiratory Ventilation, 24-96 Consecutive Hours, Continuous Positive Airway Pressure (ICD-10-PCS; 2018-03-30 11:45)
DX: A41.9 Sepsis, unspecified organism (principal); R65.21 Severe sepsis with septic shock; I21.4 Non-ST elevation (NSTEMI) myocardial infarction; J96.01 Acute respiratory failure with hypoxia; I49.01 Ventricular fibrillation; I46.9 Cardiac arrest, cause unspecified; J15.212 Pneumonia due to Methicillin resistant Staphylococcus aureus; N17.9 Acute kidney failure, unspecified; I42.9 Cardiomyopathy, unspecified; I47.2 Ventricular tachycardia; E87.2 Acidosis; D61.818 Other pancytopenia; K56.7 Ileus, unspecified; E87.0 Hyperosmolality and hypernatremia; K92.1 Melena; B37.49 Other urogenital candidiasis; R13.10 Dysphagia, unspecified; K25.9 Gastric ulcer, unspecified as acute or chronic, without hemorrhage or perforation; K29.70 Gastritis, unspecified, without bleeding; D12.0 Benign neoplasm of cecum; K63.5 Polyp of colon; I50.9 Heart failure, unspecified; I25.10 Atherosclerotic heart disease of native coronary artery without angina pectoris; F17.200 Nicotine dependence, unspecified, uncomplicated; E11.43 Type 2 diabetes mellitus with diabetic autonomic (poly)neuropathy; K31.84 Gastroparesis; D75.89 Other specified diseases of blood and blood-forming organs; F10.20 Alcohol dependence, uncomplicated
CPT/HCPCS: 31500; 36415; 36430; 36569; 36600; 49465; 71045; 71260; 74018; 74176; 74230; 76536; 76937; 80048; 80053; 80061; 80076; 80202; 80307; 81001; 82150; 82270; 82550; 82553; 82607; 82728; 82746; 82803; 82962; 83010; 83036; 83605; 83690; 83735; 83880; 84100; 84145; 84484; 85025; 85045; 85049; 85362; 85378; 85384; 85610; 85670; 85730; 86022; 86644; 86704; 86803; 86850; 86880; 86900; 86901; 86920; 87040; 87045; 87070; 87075; 87081; 87086; 87340; 88305; 88312; 89220; 92507; 92526; 92610; 92611; 92950; 93005; 93306; 93308; 93454; 94002; 94003; 94640; 94660; 94664; 94770; 96374; 96375; 97110; 97116; 97161; 97164; 97167; 97530; 97535; 99291-25; J1120

== ENCOUNTER 2018-05-21 10:18 | Inpatient (IN) | payer OTHER ==
[2018-05-21] MEDS: SODIUM CHLORIDE 0.9% 1L BAG IV* (11:01)
[2018-05-21] MEDS: CEFEPIME 2GM/50 ML (PMX) 50 ML IVPB (11:38)
[2018-05-21 11:42] LABS: ADD MAN DIFF? NO
[2018-05-21 11:46] LABS: WHITE BLOOD COUNT 5.9 10^3/ul (4.8-10.8)
[2018-05-21 11:46] LABS: ABNORMAL IP MESSAGE 1; BASOPHILS % 0.2 % (0.0-2.0); EOSINOPHILS % 0.3 % (0.0-7.0); HEMATOCRIT 16.7 % (42.0-52.0); LYMPHOCYTES # 1.1 10^3/ul (0.8-2.9); LYMPHOCYTES % 18.6 % (15.0-51.0); MEAN CORPUSCULAR HEMOGLOBIN 31.4 pg (29.0-33.0); MEAN CORPUSCULAR HGB CONC 32.9 g/dl (32.0-37.0); MEAN CORPUSCULAR VOLUME 95.4 fl (82.0-101.0); MEAN PLATELET VOLUME 13.5 fl (7.4-10.4); MONOCYTE # 0.7 10^3/ul (0.3-0.9); MONOCYTES % 12.5 % (0.0-11.0); NEUTROPHILS % 67.9 % (39.0-77.0); PLATELET COUNT 134 10^3/UL (140-415); POSITIVE DIFF @See below; RED BLOOD COUNT 1.75 10^6/ul (4.70-6.10); RED CELL DISTRIBUTION WIDTH 14.8 % (11.5-14.5)
[2018-05-21] MEDS: NORepinephrine 8MG/250 ML (PMX 250 ML IV (11:47)
[2018-05-21] MEDS: VANCOMYCIN 1 GM (PMX) 250 ML IVPB (11:51)
[2018-05-21 11:59] LABS: HEMOGLOBIN 5.5 g/dl (14.0-18.0)
[2018-05-21] MEDS: SOD CHLORIDE 0.9% 0 ML IV (11:59)
[2018-05-21 12:00] LABS: PATH REVIEW? YES
[2018-05-21 12:02] LABS: ANION GAP 15 (5-13); BLOOD UREA NITROGEN 96 mg/dl (7-20); CALCIUM 8.5 mg/dl (8.4-10.2); CARBON DIOXIDE 27 mmol/L (21-31); CHLORIDE 89 mmol/L (97-110); CREATININE 3.45 mg/dl (0.61-1.24); Estimated GFR 18 mL/min (>60); GLUCOSE 204 mg/dl (70-220); POTASSIUM 4.8 mmol/L (3.5-5.1); SODIUM 131 mmol/L (135-144)
[2018-05-21 12:05] LABS: INR 1.28; PROTIME 16.2 Sec (11.9-14.9); PT RATIO 1.3
[2018-05-21 12:06] LABS: PARTIAL THROMBOPLASTIN TIME 41.5 Sec (23.0-35.0)
[2018-05-21 12:14] LABS: LACTIC ACID 1.8 mmol/L (0.5-2.0)
[2018-05-21 12:57] LABS: AADO2 Arterial 268.2 mmHg (7.0-24.0); Allen Test ACCEPTAB; Arterial Base Excess -0.9 mmol/L (-3.0-3); Arterial Blood Gas Oxygen Sat 80.5 mmHG (95.0-98.0); Arterial COHb 0.3 % (0.0-3.0); Arterial Fraction of Oxyhgb 80.1 % (93.0-99.0); Arterial HCO3 23.1 mmol/L (22.0-26.0); Arterial MetHb 0.2 % (0.0-1.5); Arterial pCO2 34.2 mmhg (35-45); MODE VENT - AC; Site Left Radial
[2018-05-21 13:16] LABS: ADD UMIC YES; UR ASCORBIC ACID 40 mg/dL (NEGATIVE); UR BILIRUBIN (Dip) NEGATIVE (NEGATIVE); UR BLOOD (Dip) NEGATIVE (NEGATIVE); UR CLARITY SLIGHTLY CLOUDY (CLEAR); UR COLOR AMBER (YELLOW); UR GLUCOSE (Dip) NEGATIVE (NEGATIVE); UR KETONES (Dip) TRACE mg/dL (NEGATIVE); UR LEUKOCYTE ESTERASE (Dip) 1+ Leu/ul (NEGATIVE); UR NITRITE (Dip) NEGATIVE (NEGATIVE); UR RBC 1 /HPF (0-5); UR SPECIFIC GRAVITY (Dip) 1.023 (1.003-1.030); UR TOTAL PROTEIN (Dip) NEGATIVE (NEGATIVE); UR UROBILINOGEN (Dip) 1+ mg/dL (NEGATIVE); UR WBC 3 /HPF (0-5)
[2018-05-21] MEDS ORDERED: NACL 0.9% 3 ML SYG IV (15:30)
[2018-05-21] MEDS ORDERED: ONDANSETRON 4 MG INJ IV (15:30)
[2018-05-21] MEDS ORDERED: VANCOMYCIN IV PER PHARMACY XX (15:30)
[2018-05-21 15:47] LABS: CREATINE KINASE 214 IU/L (23-200)
[2018-05-21 15:59] LABS: CK INDEX 7.2
[2018-05-21] MEDS ORDERED: PENDING SANTYL ORDER FOR WOUND CARE XX (16:00)
[2018-05-21] MEDS ORDERED: COLLAGENASE 5 GM (UD JAR) TOP (16:30)
[2018-05-21 17:06] LABS: IMMEDIATE SPIN CROSSMATCH 1 2
[2018-05-21] MEDS: VANCOMYCIN 750 MG in SOD CHLORIDE 0.9% 150 ML IVPB (17:23)
[2018-05-21] MEDS: COLLAGENASE 5 GM (UD JAR) TOP (17:29)
[2018-05-21] MEDS: SOD CHLORIDE 0.9% 1,000 ML IV (17:30)
[2018-05-21] MEDS: PANTOPRAZOLE IV 80 MG in SOD CHLORIDE 0.9% 100 ML IVPB (20:36)
[2018-05-21 20:40] LABS: ADD MAN DIFF? NO
[2018-05-21 20:41] LABS: WHITE BLOOD COUNT 9.7 10^3/ul (4.8-10.8)
[2018-05-21 20:41] LABS: ABNORMAL IP MESSAGE 1; BASOPHILS % 0.1 % (0.0-2.0); HEMATOCRIT 27.1 % (42.0-52.0); HEMOGLOBIN 8.7 g/dl (14.0-18.0); LYMPHOCYTES # 0.8 10^3/ul (0.8-2.9); LYMPHOCYTES % 7.8 % (15.0-51.0); MEAN CORPUSCULAR HEMOGLOBIN 28.6 pg (29.0-33.0); MEAN CORPUSCULAR HGB CONC 32.1 g/dl (32.0-37.0); MEAN CORPUSCULAR VOLUME 89.1 fl (82.0-101.0); MEAN PLATELET VOLUME 13.1 fl (7.4-10.4); MONOCYTE # 1.1 10^3/ul (0.3-0.9); NEUTROPHIL # 7.9 10^3/ul (1.6-7.5); NEUTROPHILS % 80.8 % (39.0-77.0); POSITIVE DIFF @See below; RED BLOOD COUNT 3.04 10^6/ul (4.70-6.10); RED CELL DISTRIBUTION WIDTH 18.6 % (11.5-14.5)
[2018-05-21] MEDS: PANTOPRAZOLE IV 80 MG in SOD CHLORIDE 0.9% 100 ML IV (20:58)
[2018-05-21] MEDS: ATORVASTATIN 80 MG TAB PO (21:00)
[2018-05-21 21:05] LABS: CREATINE KINASE 237 IU/L (23-200)
[2018-05-21 21:18] LABS: PLATELET COUNT 163 10^3/UL (140-415)
[2018-05-21 21:19] LABS: CK INDEX 6.9
[2018-05-22] MEDS: SOD CHLORIDE 0.9% 1,000 ML IV ×3 (01:50→20:38)
[2018-05-22 04:54] LABS: ADD MAN DIFF? NO
[2018-05-22 04:59] LABS: WHITE BLOOD COUNT 9.7 10^3/ul (4.8-10.8)
[2018-05-22 04:59] LABS: ABNORMAL IP MESSAGE 1; BASOPHILS % 0.2 % (0.0-2.0); HEMATOCRIT 26.9 % (42.0-52.0); HEMOGLOBIN 8.8 g/dl (14.0-18.0); LYMPHOCYTES # 1.4 10^3/ul (0.8-2.9); LYMPHOCYTES % 14.4 % (15.0-51.0); MEAN CORPUSCULAR HEMOGLOBIN 28.8 pg (29.0-33.0); MEAN CORPUSCULAR HGB CONC 32.7 g/dl (32.0-37.0); MEAN CORPUSCULAR VOLUME 87.9 fl (82.0-101.0); MEAN PLATELET VOLUME 13.1 fl (7.4-10.4); MONOCYTE # 1.1 10^3/ul (0.3-0.9); MONOCYTES % 11.5 % (0.0-11.0); NEUTROPHIL # 7.1 10^3/ul (1.6-7.5); NEUTROPHILS % 73.5 % (39.0-77.0); PLATELET COUNT 186 10^3/UL (140-415); POSITIVE DIFF @See below; RED BLOOD COUNT 3.06 10^6/ul (4.70-6.10); RED CELL DISTRIBUTION WIDTH 19.6 % (11.5-14.5)
[2018-05-22 05:06] LABS: HEMOGLOBIN A1C 5.7 % (0-5.9)
[2018-05-22 05:29] LABS: CHOL/HDL RATIO 3.8 RATIO; HDL CHOLESTEROL 23 mg/dl (30-78); LDL CHOLESTEROL,CALCULATED 45 mg/dl; TRIGLYCERIDES 107 mg/dl (0-149)
[2018-05-22 05:29] LABS: CHOLESTEROL 89 mg/dl (100-200)
[2018-05-22 05:31] LABS: ANION GAP 10 (5-13); BLOOD UREA NITROGEN 71 mg/dl (7-20); CALCIUM 8.2 mg/dl (8.4-10.2); CARBON DIOXIDE 25 mmol/L (21-31); CHLORIDE 102 mmol/L (97-110); CREATININE 1.93 mg/dl (0.61-1.24); Estimated GFR 35 mL/min (>60); GLUCOSE 242 mg/dl (70-220); MAGNESIUM 2.3 mg/dl (1.7-2.5); POTASSIUM 5.2 mmol/L (3.5-5.1); SODIUM 137 mmol/L (135-144)
[2018-05-22 05:31] LABS: PHOSPHORUS 4.1 mg/dl (2.5-4.9)
[2018-05-22] MEDS: PANTOPRAZOLE IV 80 MG in SOD CHLORIDE 0.9% 100 ML IV ×3 (07:34→23:00)
[2018-05-22] MEDS: COLLAGENASE 5 GM (UD JAR) TOP ×2 (10:56→12:45)
[2018-05-22] MEDS: CEFEPIME 1GM/50 ML (PMX) 50 ML IVPB ×2 (11:39→20:38)
[2018-05-22 14:51] LABS: ALANINE AMINOTRANSFERASE 19 IU/L (13-69); ALBUMIN/GLOBULIN RATIO 0.78; ALKALINE PHOSPHATASE 55 IU/L (42-121); ANION GAP 9 (5-13); ASPARTATE AMINO TRANSFERASE 54 IU/L (15-46); BILIRUBIN,INDIRECT 0.7 mg/dl (0-1.1); BILIRUBIN,TOTAL 0.7 mg/dl (0.2-1.3); BLOOD UREA NITROGEN 59 mg/dl (7-20); CALCIUM 8.4 mg/dl (8.4-10.2); CARBON DIOXIDE 25 mmol/L (21-31); CHLORIDE 103 mmol/L (97-110); CREATININE 1.45 mg/dl (0.61-1.24); Estimated GFR 48 mL/min (>60); GLUCOSE 212 mg/dl (70-220); LACTATE DEHYDROGENASE 672 IU/L (313-618); SODIUM 137 mmol/L (135-144); TOTAL PROTEIN 6.8 g/dl (6.1-8.1)
[2018-05-22] MEDS: VANCOMYCIN 1.25 GM in SOD CHLORIDE 0.9% 250 ML IVPB (17:10)
[2018-05-22] MEDS: ATORVASTATIN 80 MG TAB PO (20:38)
[2018-05-23 05:09] LABS: ADD MAN DIFF? NO
[2018-05-23 05:10] LABS: ABNORMAL IP MESSAGE 1; BASOPHILS % 0.3 % (0.0-2.0); EOSINOPHILS # 0.1 10^3/ul (0.0-0.5); EOSINOPHILS % 1.5 % (0.0-7.0); HEMATOCRIT 25.3 % (42.0-52.0); HEMOGLOBIN 7.9 g/dl (14.0-18.0); LYMPHOCYTES # 1.5 10^3/ul (0.8-2.9); MEAN CORPUSCULAR HEMOGLOBIN 28.7 pg (29.0-33.0); MEAN CORPUSCULAR HGB CONC 31.2 g/dl (32.0-37.0); MEAN PLATELET VOLUME 13.4 fl (7.4-10.4); MONOCYTE # 0.8 10^3/ul (0.3-0.9); MONOCYTES % 12.6 % (0.0-11.0); NEUTROPHIL # 4.2 10^3/ul (1.6-7.5); NEUTROPHILS % 62.4 % (39.0-77.0); PLATELET COUNT 164 10^3/UL (140-415); POSITIVE DIFF @See below; RED BLOOD COUNT 2.75 10^6/ul (4.70-6.10); RED CELL DISTRIBUTION WIDTH 19.5 % (11.5-14.5)
[2018-05-23 05:10] LABS: WHITE BLOOD COUNT 6.7 10^3/ul (4.8-10.8)
[2018-05-23 05:25] LABS: RETICULOCYTE COUNT # 0.088 X10^6 (0.020-0.110); RETICULOCYTE COUNT % 3.2 % (0.5-1.5)
[2018-05-23 05:25] LABS: RETICULOCYTE RBC 2.74
[2018-05-23 05:39] LABS: CREATINE KINASE 86 IU/L (23-200)
[2018-05-23 05:48] LABS: CK INDEX 6.6
[2018-05-23] MEDS: PANTOPRAZOLE 40 MG INJ IV (05:54)
[2018-05-23 06:05] LABS: ALANINE AMINOTRANSFERASE 19 IU/L (13-69); ALBUMIN/GLOBULIN RATIO 0.88; ALKALINE PHOSPHATASE 54 IU/L (42-121); ANION GAP 9 (5-13); ASPARTATE AMINO TRANSFERASE 38 IU/L (15-46); BILIRUBIN,INDIRECT 0.7 mg/dl (0-1.1); BILIRUBIN,TOTAL 0.7 mg/dl (0.2-1.3); BLOOD UREA NITROGEN 40 mg/dl (7-20); CALCIUM 8.5 mg/dl (8.4-10.2); CARBON DIOXIDE 25 mmol/L (21-31); CHLORIDE 105 mmol/L (97-110); CREATININE 1.06 mg/dl (0.61-1.24); Estimated GFR > 60 mL/min (>60); GLUCOSE 164 mg/dl (70-220); SODIUM 139 mmol/L (135-144); TOTAL PROTEIN 6.4 g/dl (6.1-8.1)
[2018-05-23 06:13] LABS: CK-MB 5.65 ng/ml (0.0-2.4)
[2018-05-23 06:41] LABS: FOLATE 18.8 ng/ml (2.8-20.0)
[2018-05-23] MEDS: SOD CHLORIDE 0.9% 1,000 ML IV ×2 (07:06→13:32)
[2018-05-23 07:16] LABS: POTASSIUM 4.6 mmol/L (3.5-5.1)
[2018-05-23] MEDS: CEFEPIME 1GM/50 ML (PMX) 50 ML IVPB ×2 (08:46→21:00)
[2018-05-23] MEDS: BALSAM PERU/CASTOR OIL 60 GM TUBE TOP (13:32)
[2018-05-23] MEDS: VANCOMYCIN 1.25 GM in SOD CHLORIDE 0.9% 250 ML IVPB (17:05)
[2018-05-23] MEDS: ATORVASTATIN 80 MG TAB PO (21:00)
[2018-05-24] MEDS: SOD CHLORIDE 0.9% 1,000 ML IV (02:32)
[2018-05-24 05:19] LABS: ADD MAN DIFF? NO
[2018-05-24 05:26] LABS: WHITE BLOOD COUNT 6.9 10^3/ul (4.8-10.8)
[2018-05-24 05:26] LABS: ABNORMAL IP MESSAGE 1; BASOPHILS % 0.6 % (0.0-2.0); EOSINOPHILS # 0.2 10^3/ul (0.0-0.5); EOSINOPHILS % 2.6 % (0.0-7.0); HEMATOCRIT 25.3 % (42.0-52.0); LYMPHOCYTES # 1.6 10^3/ul (0.8-2.9); LYMPHOCYTES % 22.4 % (15.0-51.0); MEAN CORPUSCULAR HEMOGLOBIN 29.1 pg (29.0-33.0); MEAN CORPUSCULAR HGB CONC 31.6 g/dl (32.0-37.0); MEAN PLATELET VOLUME 13.2 fl (7.4-10.4); MONOCYTE # 0.9 10^3/ul (0.3-0.9); MONOCYTES % 12.9 % (0.0-11.0); NEUTROPHIL # 4.2 10^3/ul (1.6-7.5); NEUTROPHILS % 61.4 % (39.0-77.0); PLATELET COUNT 171 10^3/UL (140-415); POSITIVE DIFF @See below; RED BLOOD COUNT 2.75 10^6/ul (4.70-6.10); RED CELL DISTRIBUTION WIDTH 19.5 % (11.5-14.5)
[2018-05-24] MEDS: PANTOPRAZOLE 40 MG INJ IV (05:42)
[2018-05-24 05:45] LABS: CREATININE 0.86 mg/dl (0.61-1.24)
[2018-05-24 05:45] LABS: BLOOD UREA NITROGEN 23 mg/dl (7-20)
[2018-05-24 05:55] LABS: CREATINE KINASE 53 IU/L (23-200)
[2018-05-24 05:59] LABS: CK-MB 2.67 ng/ml (0.0-2.4)
[2018-05-24 07:43] LABS: IRON 27 ug/dl (35-150)
[2018-05-24 07:52] LABS: TOTAL IRON BINDING CAPACITY 235 ug/dl (241-421)
[2018-05-24 08:09] LABS: % IRON SATURATION 11 % SAT (22-52)
[2018-05-24] MEDS ORDERED: FUROSEMIDE 40 MG INJ (10:16)
[2018-05-24] MEDS: CEFEPIME 1GM/50 ML (PMX) 50 ML IVPB ×2 (10:21→21:12)
[2018-05-24] MEDS: BALSAM PERU/CASTOR OIL 60 GM TUBE TOP (10:22)
[2018-05-24] MEDS: COLLAGENASE 5 GM (UD JAR) TOP (10:22)
[2018-05-24] MEDS: FUROSEMIDE 40 MG INJ IV (10:27)
[2018-05-24] MEDS ORDERED: EPOETIN 10000 UNITS/ML (NON ESRD/NON ONCOLOGY) SC ×2 (16:30→17:00)
[2018-05-24 16:54] LABS: VANCOMYCIN,TROUGH 14.7 ug/ml (10.0-20.0)
[2018-05-24 17:20] LABS: THYROID STIMULATING HORMONE 0.341 MIU/L (0.465-4.680)
[2018-05-24] MEDS: SOD FERRIC GLUC COMPLX 125 MG in SOD CHLORIDE 0.9% 100 ML IVPB (17:45)
[2018-05-24] MEDS: VANCOMYCIN 1.25 GM in SOD CHLORIDE 0.9% 250 ML IVPB (17:45)
[2018-05-24] MEDS: EPOETIN 10000 UNITS/ML (NON ESRD/NON ONCOLOGY) SC (17:55)
[2018-05-24] MEDS: FUROSEMIDE 20 MG INJ IV (21:12)
[2018-05-24] MEDS: ATORVASTATIN 80 MG TAB PO (21:12)
[2018-05-25 05:34] LABS: ADD MAN DIFF? NO
[2018-05-25 05:40] LABS: WHITE BLOOD COUNT 6.8 10^3/ul (4.8-10.8)
[2018-05-25 05:40] LABS: BASOPHILS % 0.4 % (0.0-2.0); EOSINOPHILS # 0.2 10^3/ul (0.0-0.5); EOSINOPHILS % 3.1 % (0.0-7.0); HEMATOCRIT 27.5 % (42.0-52.0); HEMOGLOBIN 8.6 g/dl (14.0-18.0); LYMPHOCYTES # 1.5 10^3/ul (0.8-2.9); LYMPHOCYTES % 22.7 % (15.0-51.0); MEAN CORPUSCULAR HEMOGLOBIN 28.8 pg (29.0-33.0); MEAN CORPUSCULAR HGB CONC 31.3 g/dl (32.0-37.0); MEAN PLATELET VOLUME 11.8 fl (7.4-10.4); MONOCYTE # 0.7 10^3/ul (0.3-0.9); MONOCYTES % 10.5 % (0.0-11.0); NEUTROPHIL # 4.3 10^3/ul (1.6-7.5); PLATELET COUNT 172 10^3/UL (140-415); RED BLOOD COUNT 2.99 10^6/ul (4.70-6.10); RED CELL DISTRIBUTION WIDTH 18.8 % (11.5-14.5)
[2018-05-25] MEDS: PANTOPRAZOLE 40 MG INJ IV (05:52)
[2018-05-25 06:51] LABS: ALANINE AMINOTRANSFERASE 15 IU/L (13-69); ALBUMIN 3.1 g/dl (3.3-4.9); ALBUMIN/GLOBULIN RATIO 0.88; ALKALINE PHOSPHATASE 67 IU/L (42-121); ANION GAP 7 (5-13); ASPARTATE AMINO TRANSFERASE 25 IU/L (15-46); BILIRUBIN,INDIRECT 1.1 mg/dl (0-1.1); BILIRUBIN,TOTAL 1.1 mg/dl (0.2-1.3); BLOOD UREA NITROGEN 20 mg/dl (7-20); CALCIUM 8.7 mg/dl (8.4-10.2); CARBON DIOXIDE 28 mmol/L (21-31); CHLORIDE 104 mmol/L (97-110); CREATININE 0.93 mg/dl (0.61-1.24); Estimated GFR > 60 mL/min (>60); GLUCOSE 102 mg/dl (70-220); POTASSIUM 3.9 mmol/L (3.5-5.1); SODIUM 139 mmol/L (135-144); TOTAL PROTEIN 6.6 g/dl (6.1-8.1)
[2018-05-25 08:37] LABS: CREATINE KINASE 42 IU/L (23-200)
[2018-05-25 08:55] LABS: CK INDEX 4.1; CK-MB 1.74 ng/ml (0.0-2.4)
[2018-05-25] MEDS: CEFEPIME 1GM/50 ML (PMX) 50 ML IVPB ×2 (09:31→20:22)
[2018-05-25] MEDS: BALSAM PERU/CASTOR OIL 60 GM TUBE TOP (09:32)
[2018-05-25] MEDS: COLLAGENASE 5 GM (UD JAR) TOP (09:32)
[2018-05-25] MEDS: FUROSEMIDE 20 MG INJ IV (09:32)
[2018-05-25 14:36] LABS: HAPTOGLOBIN 246 mg/dL (43-212)
[2018-05-25] MEDS: SOD FERRIC GLUC COMPLX 125 MG in SOD CHLORIDE 0.9% 100 ML IVPB (16:17)
[2018-05-25 19:39] LABS: OCCULT BLOOD STOOL NEGATIVE (NEGATIVE)
[2018-05-25] MEDS: ATORVASTATIN 80 MG TAB PO (20:21)
[2018-05-26 03:07] LABS: PROTEIN, TOTAL 6.2 g/dL (6.1-8.1)
[2018-05-26 05:49] LABS: ADD MAN DIFF? NO
[2018-05-26 05:57] LABS: BASOPHILS % 0.4 % (0.0-2.0); EOSINOPHILS # 0.2 10^3/ul (0.0-0.5); EOSINOPHILS % 3.6 % (0.0-7.0); HEMOGLOBIN 8.1 g/dl (14.0-18.0); LYMPHOCYTES # 1.4 10^3/ul (0.8-2.9); LYMPHOCYTES % 24.5 % (15.0-51.0); MEAN CORPUSCULAR HEMOGLOBIN 28.4 pg (29.0-33.0); MEAN CORPUSCULAR HGB CONC 31.2 g/dl (32.0-37.0); MEAN CORPUSCULAR VOLUME 91.2 fl (82.0-101.0); MEAN PLATELET VOLUME 12.2 fl (7.4-10.4); MONOCYTE # 0.7 10^3/ul (0.3-0.9); MONOCYTES % 12.5 % (0.0-11.0); NEUTROPHIL # 3.3 10^3/ul (1.6-7.5); NEUTROPHILS % 58.6 % (39.0-77.0); PLATELET COUNT 151 10^3/UL (140-415); RED BLOOD COUNT 2.85 10^6/ul (4.70-6.10); RED CELL DISTRIBUTION WIDTH 18.5 % (11.5-14.5)
[2018-05-26 05:57] LABS: WHITE BLOOD COUNT 5.5 10^3/ul (4.8-10.8)
[2018-05-26] MEDS: PANTOPRAZOLE 40 MG INJ IV (06:36)
[2018-05-26] MEDS: BALSAM PERU/CASTOR OIL 60 GM TUBE TOP (08:30)
[2018-05-26] MEDS: CEFEPIME 1GM/50 ML (PMX) 50 ML IVPB ×2 (08:30→21:04)
[2018-05-26] MEDS: FUROSEMIDE 20 MG INJ IV (08:30)
[2018-05-26] MEDS: COLLAGENASE 5 GM (UD JAR) TOP (08:30)
[2018-05-26 15:27] LABS: ALBUMIN 2.3 g/dL (3.8-4.8); ALPHA-1-GLOBULINS 0.5 g/dL (0.2-0.3); ALPHA-2-GLOBULINS 0.9 g/dL (0.5-0.9); BETA 2 GLOBULINS 0.6 g/dL (0.2-0.5); BETA GLOBULINS 0.5 g/dL (0.4-0.6); GAMMA GLOBULINS 1.5 g/dL (0.8-1.7)
[2018-05-26] MEDS: SOD FERRIC GLUC COMPLX 125 MG in SOD CHLORIDE 0.9% 100 ML IVPB (17:40)
[2018-05-26] MEDS: ATORVASTATIN 80 MG TAB PO (21:04)
[2018-05-27 05:35] LABS: ADD MAN DIFF? NO
[2018-05-27] MEDS: PANTOPRAZOLE 40 MG INJ IV (05:55)
[2018-05-27 05:59] LABS: WHITE BLOOD COUNT 6.6 10^3/ul (4.8-10.8)
[2018-05-27 05:59] LABS: BASOPHILS % 0.3 % (0.0-2.0); EOSINOPHILS # 0.2 10^3/ul (0.0-0.5); HEMATOCRIT 27.1 % (42.0-52.0); HEMOGLOBIN 8.5 g/dl (14.0-18.0); LYMPHOCYTES # 1.3 10^3/ul (0.8-2.9); LYMPHOCYTES % 19.1 % (15.0-51.0); MEAN CORPUSCULAR HEMOGLOBIN 28.9 pg (29.0-33.0); MEAN CORPUSCULAR HGB CONC 31.4 g/dl (32.0-37.0); MEAN CORPUSCULAR VOLUME 92.2 fl (82.0-101.0); MEAN PLATELET VOLUME 12.6 fl (7.4-10.4); MONOCYTE # 0.7 10^3/ul (0.3-0.9); MONOCYTES % 10.3 % (0.0-11.0); NEUTROPHIL # 4.4 10^3/ul (1.6-7.5); NEUTROPHILS % 66.7 % (39.0-77.0); PLATELET COUNT 158 10^3/UL (140-415); RED BLOOD COUNT 2.94 10^6/ul (4.70-6.10); RED CELL DISTRIBUTION WIDTH 18.6 % (11.5-14.5)
[2018-05-27 06:19] LABS: ANION GAP 8 (5-13); BLOOD UREA NITROGEN 18 mg/dl (7-20); CALCIUM 8.3 mg/dl (8.4-10.2); CARBON DIOXIDE 30 mmol/L (21-31); CHLORIDE 102 mmol/L (97-110); CREATININE 0.77 mg/dl (0.61-1.24); Estimated GFR > 60 mL/min (>60); GLUCOSE 149 mg/dl (70-220); POTASSIUM 3.9 mmol/L (3.5-5.1); SODIUM 140 mmol/L (135-144)
[2018-05-27] MEDS: FUROSEMIDE 20 MG INJ IV (08:36)
[2018-05-27] MEDS: CEFEPIME 1GM/50 ML (PMX) 50 ML IVPB ×2 (08:37→20:23)
[2018-05-27] MEDS: BALSAM PERU/CASTOR OIL 60 GM TUBE TOP (08:38)
[2018-05-27] MEDS: COLLAGENASE 5 GM (UD JAR) TOP (08:39)
[2018-05-27] MEDS: SOD CHLORIDE 0.9% 1,000 ML IV (16:32)
[2018-05-27] MEDS: SOD FERRIC GLUC COMPLX 125 MG in SOD CHLORIDE 0.9% 100 ML IVPB (16:33)
[2018-05-27] MEDS: ATORVASTATIN 80 MG TAB PO (20:23)
[2018-05-28] MEDS: PANTOPRAZOLE 40 MG INJ IV (05:45)
[2018-05-28 08:18] LABS: ADD MAN DIFF? NO
[2018-05-28 08:24] LABS: ABNORMAL IP MESSAGE 1; BASOPHILS % 0.5 % (0.0-2.0); EOSINOPHILS # 0.3 10^3/ul (0.0-0.5); EOSINOPHILS % 4.4 % (0.0-7.0); HEMATOCRIT 26.1 % (42.0-52.0); HEMOGLOBIN 8.1 g/dl (14.0-18.0); LYMPHOCYTES # 1.4 10^3/ul (0.8-2.9); LYMPHOCYTES % 22.4 % (15.0-51.0); MEAN CORPUSCULAR HEMOGLOBIN 28.9 pg (29.0-33.0); MEAN CORPUSCULAR VOLUME 93.2 fl (82.0-101.0); MEAN PLATELET VOLUME 13.2 fl (7.4-10.4); MONOCYTE # 0.7 10^3/ul (0.3-0.9); NEUTROPHIL # 3.8 10^3/ul (1.6-7.5); NEUTROPHILS % 61.2 % (39.0-77.0); PLATELET COUNT 148 10^3/UL (140-415); POSITIVE DIFF @See below; RED CELL DISTRIBUTION WIDTH 19.2 % (11.5-14.5)
[2018-05-28 08:24] LABS: WHITE BLOOD COUNT 6.2 10^3/ul (4.8-10.8)
[2018-05-28] MEDS: COLLAGENASE 5 GM (UD JAR) TOP (08:35)
[2018-05-28] MEDS: BALSAM PERU/CASTOR OIL 60 GM TUBE TOP (08:35)
[2018-05-28] MEDS: POLYETHYLENE GLYCOL 17 GM PACKET PO (08:35)
[2018-05-28] MEDS: CEFEPIME 1GM/50 ML (PMX) 50 ML IVPB ×2 (08:35→20:42)
[2018-05-28 08:42] LABS: ANION GAP 10 (5-13); BLOOD UREA NITROGEN 22 mg/dl (7-20); CALCIUM 8.4 mg/dl (8.4-10.2); CARBON DIOXIDE 31 mmol/L (21-31); CHLORIDE 100 mmol/L (97-110); CREATININE 0.78 mg/dl (0.61-1.24); Estimated GFR > 60 mL/min (>60); GLUCOSE 141 mg/dl (70-220); POTASSIUM 3.8 mmol/L (3.5-5.1); SODIUM 141 mmol/L (135-144)
[2018-05-28] MEDS: SOD CHLORIDE 0.9% 1,000 ML IV (13:34)
[2018-05-28 16:09] LABS: OCCULT BLOOD STOOL NEGATIVE (NEGATIVE)
[2018-05-28] MEDS: SOD FERRIC GLUC COMPLX 125 MG in SOD CHLORIDE 0.9% 100 ML IVPB (17:16)
[2018-05-28] MEDS: LORAZEPAM 4 MG/ML VIAL IV ×2 (19:08→19:49)
[2018-05-28] MEDS: LORAZEPAM 2 MG INJ IV (19:14)
[2018-05-28 19:20] LABS: ADD MAN DIFF? NO
[2018-05-28 19:25] LABS: BASOPHIL # 0.1 10^3/ul (0.0-0.1); BASOPHILS % 0.5 % (0.0-2.0); EOSINOPHILS # 0.3 10^3/ul (0.0-0.5); EOSINOPHILS % 2.2 % (0.0-7.0); HEMATOCRIT 33.5 % (42.0-52.0); HEMOGLOBIN 10.2 g/dl (14.0-18.0); LYMPHOCYTES # 4.5 10^3/ul (0.8-2.9); LYMPHOCYTES % 29.8 % (15.0-51.0); MEAN CORPUSCULAR HEMOGLOBIN 28.7 pg (29.0-33.0); MEAN CORPUSCULAR HGB CONC 30.4 g/dl (32.0-37.0); MEAN CORPUSCULAR VOLUME 94.1 fl (82.0-101.0); MEAN PLATELET VOLUME 12.4 fl (7.4-10.4); MONOCYTES % 6.6 % (0.0-11.0); NEUTROPHIL # 9.1 10^3/ul (1.6-7.5); NEUTROPHILS % 60.5 % (39.0-77.0); PLATELET COUNT 246 10^3/UL (140-415); RED BLOOD COUNT 3.56 10^6/ul (4.70-6.10)
[2018-05-28 19:25] LABS: WHITE BLOOD COUNT 15.1 10^3/ul (4.8-10.8)
[2018-05-28 19:31] LABS: AADO2 Arterial 87.6 mmHg (7.0-24.0); Allen Test ACCEPTAB; Arterial Base Excess -1.2 mmol/L (-3.0-3); Arterial Blood Gas Oxygen Sat 95.7 mmHG (95.0-98.0); Arterial COHb 0.2 % (0.0-3.0); Arterial Fraction of Oxyhgb 95.3 % (93.0-99.0); Arterial HCO3 22.7 mmol/L (22.0-26.0); Arterial MetHb 0.2 % (0.0-1.5); Arterial pCO2 35.1 mmhg (35-45); MODE VENT - AC; Site Right Radial
[2018-05-28 19:45] LABS: ALANINE AMINOTRANSFERASE < 6 IU/L (13-69); ALBUMIN 3.6 g/dl (3.3-4.9); ALBUMIN/GLOBULIN RATIO 0.78; ALKALINE PHOSPHATASE 115 IU/L (42-121); ANION GAP 13 (5-13); ASPARTATE AMINO TRANSFERASE 30 IU/L (15-46); BILIRUBIN,INDIRECT 0.7 mg/dl (0-1.1); BILIRUBIN,TOTAL 0.7 mg/dl (0.2-1.3); BLOOD UREA NITROGEN 21 mg/dl (7-20); CARBON DIOXIDE 26 mmol/L (21-31); CHLORIDE 102 mmol/L (97-110); CREATININE 0.81 mg/dl (0.61-1.24); Estimated GFR > 60 mL/min (>60); GLUCOSE 180 mg/dl (70-220); MAGNESIUM 1.7 mg/dl (1.7-2.5); SODIUM 141 mmol/L (135-144); TOTAL PROTEIN 8.2 g/dl (6.1-8.1)
[2018-05-28 20:08] LABS: TROPONIN-I 0.269 ng/ml (0.000-0.120)
[2018-05-28] MEDS: ATORVASTATIN 80 MG TAB PO (20:42)
[2018-05-29] MEDS: PANTOPRAZOLE 40 MG INJ IV (06:16)
[2018-05-29 07:04] LABS: ADD MAN DIFF? NO
[2018-05-29 07:17] LABS: BASOPHILS % 0.3 % (0.0-2.0); EOSINOPHILS # 0.2 10^3/ul (0.0-0.5); EOSINOPHILS % 2.7 % (0.0-7.0); HEMATOCRIT 27.2 % (42.0-52.0); HEMOGLOBIN 8.4 g/dl (14.0-18.0); LYMPHOCYTES # 1.4 10^3/ul (0.8-2.9); LYMPHOCYTES % 22.5 % (15.0-51.0); MEAN CORPUSCULAR HEMOGLOBIN 29.1 pg (29.0-33.0); MEAN CORPUSCULAR HGB CONC 30.9 g/dl (32.0-37.0); MEAN CORPUSCULAR VOLUME 94.1 fl (82.0-101.0); MEAN PLATELET VOLUME 12.6 fl (7.4-10.4); MONOCYTE # 0.6 10^3/ul (0.3-0.9); NEUTROPHIL # 4.1 10^3/ul (1.6-7.5); NEUTROPHILS % 64.3 % (39.0-77.0); PLATELET COUNT 155 10^3/UL (140-415); RED BLOOD COUNT 2.89 10^6/ul (4.70-6.10)
[2018-05-29 07:17] LABS: WHITE BLOOD COUNT 6.4 10^3/ul (4.8-10.8)
[2018-05-29 07:32] LABS: ANION GAP 10 (5-13); BLOOD UREA NITROGEN 24 mg/dl (7-20); CALCIUM 8.5 mg/dl (8.4-10.2); CARBON DIOXIDE 27 mmol/L (21-31); CHLORIDE 104 mmol/L (97-110); CREATININE 0.71 mg/dl (0.61-1.24); Estimated GFR > 60 mL/min (>60); GLUCOSE 146 mg/dl (70-220); POTASSIUM 4.1 mmol/L (3.5-5.1); SODIUM 141 mmol/L (135-144)
[2018-05-29 07:57] LABS: CREATINE KINASE 22 IU/L (23-200)
[2018-05-29 08:00] LABS: CK-MB 0.67 ng/ml (0.0-2.4); TROPONIN-I 0.256 ng/ml (0.000-0.120)
[2018-05-29] MEDS: BALSAM PERU/CASTOR OIL 60 GM TUBE TOP (08:39)
[2018-05-29] MEDS: POLYETHYLENE GLYCOL 17 GM PACKET PO (08:40)
[2018-05-29] MEDS: COLLAGENASE 5 GM (UD JAR) TOP (08:40)
[2018-05-29] MEDS: SOD CHLORIDE 0.9% 1,000 ML IV (08:40)
[2018-05-29] MEDS: CEFEPIME 1GM/50 ML (PMX) 50 ML IVPB ×2 (08:40→20:41)
[2018-05-29] MEDS: LORAZEPAM 4 MG/ML VIAL IV (18:35)
[2018-05-29] MEDS: ATORVASTATIN 80 MG TAB PO (20:41)
[2018-05-30] MEDS: PANTOPRAZOLE 40 MG INJ IV (05:09)
[2018-05-30] MEDS: SOD CHLORIDE 0.9% 1,000 ML IV (05:10)
[2018-05-30] MEDS: COLLAGENASE 5 GM (UD JAR) TOP (08:20)
[2018-05-30] MEDS: BALSAM PERU/CASTOR OIL 60 GM TUBE TOP (08:20)
[2018-05-30] MEDS: CEFEPIME 1GM/50 ML (PMX) 50 ML IVPB ×2 (08:20→20:27)
[2018-05-30] MEDS: POLYETHYLENE GLYCOL 17 GM PACKET PO (08:20)
[2018-05-30] MEDS: LORAZEPAM 4 MG/ML VIAL IV (11:24)
[2018-05-30] MEDS: ACETAMINOPHEN 325 MG TAB PO (20:27)
[2018-05-30] MEDS: ATORVASTATIN 80 MG TAB PO (20:27)
[2018-05-31] MEDS: SOD CHLORIDE 0.9% 1,000 ML IV ×2 (00:30→00:54)
[2018-05-31] MEDS: LORAZEPAM 4 MG/ML VIAL IV ×2 (01:22→14:19)
[2018-05-31] MEDS: PANTOPRAZOLE 40 MG INJ IV (05:18)
[2018-05-31 06:20] LABS: ADD MAN DIFF? NO
[2018-05-31 06:29] LABS: WHITE BLOOD COUNT 5.9 10^3/ul (4.8-10.8)
[2018-05-31 06:29] LABS: BASOPHILS % 0.3 % (0.0-2.0); EOSINOPHILS # 0.1 10^3/ul (0.0-0.5); EOSINOPHILS % 2.2 % (0.0-7.0); LYMPHOCYTES # 1.1 10^3/ul (0.8-2.9); LYMPHOCYTES % 18.2 % (15.0-51.0); MEAN CORPUSCULAR HGB CONC 30.8 g/dl (32.0-37.0); MEAN CORPUSCULAR VOLUME 94.2 fl (82.0-101.0); MEAN PLATELET VOLUME 12.8 fl (7.4-10.4); MONOCYTE # 0.5 10^3/ul (0.3-0.9); MONOCYTES % 8.4 % (0.0-11.0); NEUTROPHIL # 4.2 10^3/ul (1.6-7.5); NEUTROPHILS % 70.6 % (39.0-77.0); PLATELET COUNT 150 10^3/UL (140-415); RED BLOOD COUNT 2.76 10^6/ul (4.70-6.10); RED CELL DISTRIBUTION WIDTH 18.8 % (11.5-14.5)
[2018-05-31 07:04] LABS: ANION GAP 7 (5-13); BLOOD UREA NITROGEN 27 mg/dl (7-20); CALCIUM 8.4 mg/dl (8.4-10.2); CARBON DIOXIDE 28 mmol/L (21-31); CHLORIDE 106 mmol/L (97-110); CREATININE 0.72 mg/dl (0.61-1.24); Estimated GFR > 60 mL/min (>60); GLUCOSE 149 mg/dl (70-220); POTASSIUM 4.5 mmol/L (3.5-5.1); SODIUM 141 mmol/L (135-144)
[2018-05-31] MEDS: BALSAM PERU/CASTOR OIL 60 GM TUBE TOP (08:56)
[2018-05-31] MEDS: POLYETHYLENE GLYCOL 17 GM PACKET PO (08:56)
[2018-05-31] MEDS: COLLAGENASE 5 GM (UD JAR) TOP (08:57)
[2018-05-31] MEDS: CEFEPIME 1GM/50 ML (PMX) 50 ML IVPB (09:02)
[2018-05-31] MEDS: ASPIRIN 81 MG TAB PO (11:56)
[2018-05-31] MEDS: FUROSEMIDE 20 MG INJ IV (13:34)
[2018-05-31] MEDS: EPOETIN ALFA 20,000 UNIT/2 ML VIAL SC (16:53)
[2018-05-31] MEDS: ACETAMINOPHEN 325 MG TAB PO (20:25)
[2018-05-31] MEDS: ATORVASTATIN 80 MG TAB PO (20:25)
[2018-06-01] MEDS: PANTOPRAZOLE 40 MG INJ IV (05:01)
[2018-06-01 07:05] LABS: ADD MAN DIFF? NO
[2018-06-01 07:09] LABS: ABNORMAL IP MESSAGE 1; BASOPHILS % 0.3 % (0.0-2.0); EOSINOPHILS # 0.2 10^3/ul (0.0-0.5); HEMATOCRIT 26.5 % (42.0-52.0); HEMOGLOBIN 8.1 g/dl (14.0-18.0); LYMPHOCYTES # 1.4 10^3/ul (0.8-2.9); LYMPHOCYTES % 23.9 % (15.0-51.0); MEAN CORPUSCULAR HGB CONC 30.6 g/dl (32.0-37.0); MEAN PLATELET VOLUME 13.1 fl (7.4-10.4); MONOCYTE # 0.5 10^3/ul (0.3-0.9); MONOCYTES % 8.4 % (0.0-11.0); NEUTROPHIL # 3.7 10^3/ul (1.6-7.5); NEUTROPHILS % 63.1 % (39.0-77.0); PLATELET COUNT 145 10^3/UL (140-415); POSITIVE DIFF @See below; RED BLOOD COUNT 2.79 10^6/ul (4.70-6.10); RED CELL DISTRIBUTION WIDTH 18.9 % (11.5-14.5)
[2018-06-01 07:09] LABS: WHITE BLOOD COUNT 5.9 10^3/ul (4.8-10.8)
[2018-06-01 07:43] LABS: ANION GAP 8 (5-13); BLOOD UREA NITROGEN 28 mg/dl (7-20); CALCIUM 8.6 mg/dl (8.4-10.2); CARBON DIOXIDE 28 mmol/L (21-31); CHLORIDE 105 mmol/L (97-110); CREATININE 0.65 mg/dl (0.61-1.24); Estimated GFR > 60 mL/min (>60); GLUCOSE 122 mg/dl (70-220); POTASSIUM 4.1 mmol/L (3.5-5.1); SODIUM 141 mmol/L (135-144)
[2018-06-01 07:49] LABS: MAGNESIUM 1.9 mg/dl (1.7-2.5)
[2018-06-01] MEDS: COLLAGENASE 5 GM (UD JAR) TOP (08:27)
[2018-06-01] MEDS: FUROSEMIDE 20 MG INJ IV (08:27)
[2018-06-01] MEDS: CLOPIDOGREL 75 MG TAB PO (08:27)
[2018-06-01] MEDS: BALSAM PERU/CASTOR OIL 60 GM TUBE TOP (08:27)
[2018-06-01] MEDS: POLYETHYLENE GLYCOL 17 GM PACKET PO (08:27)
[2018-06-01] MEDS: ACETAMINOPHEN 325 MG TAB PO (16:32)
[2018-06-01] MEDS: ATORVASTATIN 80 MG TAB PO (21:08)
[2018-06-01] MEDS: LORAZEPAM 4 MG/ML VIAL IV (23:20)
[2018-06-02] MEDS: PANTOPRAZOLE 40 MG INJ IV (05:41)
[2018-06-02] MEDS: CLOPIDOGREL 75 MG TAB PO (08:50)
[2018-06-02] MEDS: POLYETHYLENE GLYCOL 17 GM PACKET PO (08:50)
[2018-06-02] MEDS: FUROSEMIDE 20 MG INJ IV (08:51)
[2018-06-02] MEDS: BALSAM PERU/CASTOR OIL 60 GM TUBE TOP (08:53)
[2018-06-02] MEDS: COLLAGENASE 5 GM (UD JAR) TOP (08:53)
[2018-06-02 11:21] LABS: ADD MAN DIFF? NO
[2018-06-02 11:24] LABS: BASOPHILS % 0.4 % (0.0-2.0); EOSINOPHILS # 0.2 10^3/ul (0.0-0.5); EOSINOPHILS % 2.9 % (0.0-7.0); HEMATOCRIT 28.4 % (42.0-52.0); HEMOGLOBIN 8.8 g/dl (14.0-18.0); LYMPHOCYTES # 1.1 10^3/ul (0.8-2.9); LYMPHOCYTES % 15.8 % (15.0-51.0); MEAN CORPUSCULAR HEMOGLOBIN 29.1 pg (29.0-33.0); MEAN PLATELET VOLUME 12.4 fl (7.4-10.4); MONOCYTE # 0.7 10^3/ul (0.3-0.9); MONOCYTES % 10.1 % (0.0-11.0); NEUTROPHIL # 4.8 10^3/ul (1.6-7.5); NEUTROPHILS % 70.5 % (39.0-77.0); PLATELET COUNT 146 10^3/UL (140-415); RED BLOOD COUNT 3.02 10^6/ul (4.70-6.10); RED CELL DISTRIBUTION WIDTH 18.6 % (11.5-14.5)
[2018-06-02 11:24] LABS: WHITE BLOOD COUNT 6.8 10^3/ul (4.8-10.8)
[2018-06-02] MEDS: ATORVASTATIN 80 MG TAB PO (20:28)
[2018-06-03] MEDS: PANTOPRAZOLE 40 MG INJ IV (05:10)
[2018-06-03 06:51] LABS: ADD MAN DIFF? NO
[2018-06-03 07:00] LABS: WHITE BLOOD COUNT 5.8 10^3/ul (4.8-10.8)
[2018-06-03 07:00] LABS: ABNORMAL IP MESSAGE 1; BASOPHILS % 0.3 % (0.0-2.0); EOSINOPHILS # 0.2 10^3/ul (0.0-0.5); EOSINOPHILS % 3.8 % (0.0-7.0); HEMATOCRIT 27.1 % (42.0-52.0); HEMOGLOBIN 8.4 g/dl (14.0-18.0); LYMPHOCYTES # 1.2 10^3/ul (0.8-2.9); MEAN CORPUSCULAR VOLUME 93.4 fl (82.0-101.0); MEAN PLATELET VOLUME 13.3 fl (7.4-10.4); MONOCYTE # 0.6 10^3/ul (0.3-0.9); NEUTROPHIL # 3.8 10^3/ul (1.6-7.5); NEUTROPHILS % 64.6 % (39.0-77.0); PLATELET COUNT 146 10^3/UL (140-415); POSITIVE DIFF @See below; RED CELL DISTRIBUTION WIDTH 18.5 % (11.5-14.5)
[2018-06-03 07:01] LABS: RETICULOCYTE COUNT # 0.105 X10^6 (0.020-0.110); RETICULOCYTE COUNT % 3.6 % (0.5-1.5)
[2018-06-03 07:01] LABS: RETICULOCYTE RBC 2.92
[2018-06-03 07:28] LABS: PHOSPHORUS 4.5 mg/dl (2.5-4.9)
[2018-06-03 07:28] LABS: MAGNESIUM 1.8 mg/dl (1.7-2.5)
[2018-06-03 07:29] LABS: ANION GAP 9 (5-13); BLOOD UREA NITROGEN 25 mg/dl (7-20); CALCIUM 8.8 mg/dl (8.4-10.2); CARBON DIOXIDE 33 mmol/L (21-31); CHLORIDE 98 mmol/L (97-110); CREATININE 0.62 mg/dl (0.61-1.24); Estimated GFR > 60 mL/min (>60); GLUCOSE 137 mg/dl (70-220); POTASSIUM 4.2 mmol/L (3.5-5.1); SODIUM 140 mmol/L (135-144)
[2018-06-03 07:40] LABS: IRON 35 ug/dl (35-150)
[2018-06-03 07:47] LABS: LACTATE DEHYDROGENASE 426 IU/L (313-618)
[2018-06-03 07:50] LABS: % IRON SATURATION 15 % SAT (22-52); TOTAL IRON BINDING CAPACITY 233 ug/dl (241-421)
[2018-06-03 08:30] LABS: FOLATE > 20.0 ng/ml (2.8-20.0)
[2018-06-03] MEDS: BALSAM PERU/CASTOR OIL 60 GM TUBE TOP (09:00)
[2018-06-03] MEDS: COLLAGENASE 5 GM (UD JAR) TOP (09:00)
[2018-06-03] MEDS: POLYETHYLENE GLYCOL 17 GM PACKET PO (09:27)
[2018-06-03] MEDS: CLOPIDOGREL 75 MG TAB PO (09:27)
[2018-06-03] MEDS: FUROSEMIDE 20 MG INJ IV (09:28)
[2018-06-03] MEDS: LISINOPRIL 5 MG TAB PO (16:39)
[2018-06-03] MEDS: ATORVASTATIN 80 MG TAB PO (21:13)
[2018-06-04] MEDS: LORAZEPAM 4 MG/ML VIAL IV ×2 (03:51→12:20)
[2018-06-04] MEDS: PANTOPRAZOLE 40 MG INJ IV (06:44)
[2018-06-04] MEDS: COLLAGENASE 5 GM (UD JAR) TOP (09:00)
[2018-06-04] MEDS: BALSAM PERU/CASTOR OIL 60 GM TUBE TOP (09:00)
[2018-06-04] MEDS: FUROSEMIDE 20 MG INJ IV (10:00)
[2018-06-04] MEDS: POLYETHYLENE GLYCOL 17 GM PACKET PO (10:00)
[2018-06-04] MEDS: LISINOPRIL 5 MG TAB PO (10:00)
[2018-06-04 15:26] LABS: HAPTOGLOBIN 254 mg/dL (43-212)
[2018-06-04] MEDS: ATORVASTATIN 80 MG TAB PO (21:52)
[2018-06-04 22:17] LABS: ERYTHROPOIETIN 98.7 mIU/mL (2.6-18.5)
[2018-06-05] MEDS: PANTOPRAZOLE 40 MG INJ IV (05:23)
[2018-06-05] MEDS: LISINOPRIL 5 MG TAB PO (09:27)
[2018-06-05] MEDS: POLYETHYLENE GLYCOL 17 GM PACKET PO (09:28)
[2018-06-05] MEDS: FUROSEMIDE 20 MG INJ IV (09:28)
[2018-06-05] MEDS: BALSAM PERU/CASTOR OIL 60 GM TUBE TOP (09:29)
[2018-06-05] MEDS: COLLAGENASE 5 GM (UD JAR) TOP (09:29)
[2018-06-05] MEDS: ATORVASTATIN 80 MG TAB PO (21:00)
[2018-06-06] MEDS: LORAZEPAM 4 MG/ML VIAL IV ×2 (02:46→18:05)
[2018-06-06] MEDS: PANTOPRAZOLE 40 MG INJ IV (06:01)
[2018-06-06 06:30] LABS: ADD MAN DIFF? NO
[2018-06-06 06:31] LABS: WHITE BLOOD COUNT 6.8 10^3/ul (4.8-10.8)
[2018-06-06 06:31] LABS: BASOPHILS % 0.4 % (0.0-2.0); EOSINOPHILS # 0.2 10^3/ul (0.0-0.5); EOSINOPHILS % 3.2 % (0.0-7.0); HEMATOCRIT 27.5 % (42.0-52.0); HEMOGLOBIN 8.7 g/dl (14.0-18.0); LYMPHOCYTES # 1.3 10^3/ul (0.8-2.9); LYMPHOCYTES % 19.3 % (15.0-51.0); MEAN CORPUSCULAR HEMOGLOBIN 28.8 pg (29.0-33.0); MEAN CORPUSCULAR HGB CONC 31.6 g/dl (32.0-37.0); MEAN CORPUSCULAR VOLUME 91.1 fl (82.0-101.0); MEAN PLATELET VOLUME 12.4 fl (7.4-10.4); MONOCYTE # 0.8 10^3/ul (0.3-0.9); MONOCYTES % 11.1 % (0.0-11.0); NEUTROPHIL # 4.5 10^3/ul (1.6-7.5); NEUTROPHILS % 65.9 % (39.0-77.0); PLATELET COUNT 161 10^3/UL (140-415); RED BLOOD COUNT 3.02 10^6/ul (4.70-6.10); RED CELL DISTRIBUTION WIDTH 17.9 % (11.5-14.5)
[2018-06-06 07:22] LABS: ANION GAP 9 (5-13); BLOOD UREA NITROGEN 25 mg/dl (7-20); CALCIUM 8.8 mg/dl (8.4-10.2); CARBON DIOXIDE 31 mmol/L (21-31); CHLORIDE 95 mmol/L (97-110); CREATININE 0.77 mg/dl (0.61-1.24); Estimated GFR > 60 mL/min (>60); GLUCOSE 159 mg/dl (70-220); POTASSIUM 4.5 mmol/L (3.5-5.1); SODIUM 135 mmol/L (135-144)
[2018-06-06] MEDS: POLYETHYLENE GLYCOL 17 GM PACKET PO (09:00)
[2018-06-06] MEDS: LISINOPRIL 5 MG TAB PO (09:00)
[2018-06-06] MEDS: COLLAGENASE 5 GM (UD JAR) TOP (10:00)
[2018-06-06] MEDS: FUROSEMIDE 20 MG TAB PO (10:00)
[2018-06-06] MEDS: BALSAM PERU/CASTOR OIL 60 GM TUBE TOP (10:00)
[2018-06-06] MEDS: ATORVASTATIN 80 MG TAB PO (21:55)
[2018-06-07] MEDS: LORAZEPAM 4 MG/ML VIAL IV (01:46)
[2018-06-07] MEDS: PANTOPRAZOLE 40 MG INJ IV (05:23)
[2018-06-07] MEDS: LISINOPRIL 5 MG TAB PO (09:00)
[2018-06-07] MEDS: BALSAM PERU/CASTOR OIL 60 GM TUBE TOP (09:29)
[2018-06-07] MEDS: POLYETHYLENE GLYCOL 17 GM PACKET PO (09:29)
[2018-06-07] MEDS: FUROSEMIDE 20 MG TAB PO (09:29)
[2018-06-07] MEDS: COLLAGENASE 5 GM (UD JAR) TOP (09:29)
[2018-06-07] MEDS: EPOETIN ALFA 20,000 UNIT/2 ML VIAL SC (17:52)
[2018-06-07] MEDS: ATORVASTATIN 80 MG TAB PO (21:32)
[2018-06-08] MEDS: PANTOPRAZOLE 40 MG INJ IV (05:37)
[2018-06-08] MEDS: POLYETHYLENE GLYCOL 17 GM PACKET PO (09:21)
[2018-06-08] MEDS: LISINOPRIL 5 MG TAB PO (09:21)
[2018-06-08] MEDS: FUROSEMIDE 20 MG TAB PO (09:22)
[2018-06-08] MEDS: COLLAGENASE 5 GM (UD JAR) TOP (09:22)
[2018-06-08] MEDS: BALSAM PERU/CASTOR OIL 60 GM TUBE TOP (11:29)
[2018-06-08] MEDS: ATORVASTATIN 80 MG TAB PO (21:34)
[2018-06-08] MEDS: ACETAMINOPHEN 325 MG TAB PO (23:50)
[2018-06-09] MEDS: PANTOPRAZOLE 40 MG INJ IV (05:23)
[2018-06-09 06:19] LABS: ADD MAN DIFF? NO
[2018-06-09 06:27] LABS: ABNORMAL IP MESSAGE 1; BASOPHILS % 0.5 % (0.0-2.0); EOSINOPHILS # 0.1 10^3/ul (0.0-0.5); EOSINOPHILS % 1.7 % (0.0-7.0); HEMATOCRIT 25.2 % (42.0-52.0); HEMOGLOBIN 7.9 g/dl (14.0-18.0); LYMPHOCYTES # 1.5 10^3/ul (0.8-2.9); MEAN CORPUSCULAR HEMOGLOBIN 28.6 pg (29.0-33.0); MEAN CORPUSCULAR HGB CONC 31.3 g/dl (32.0-37.0); MEAN CORPUSCULAR VOLUME 91.3 fl (82.0-101.0); MEAN PLATELET VOLUME 13.4 fl (7.4-10.4); MONOCYTES % 12.9 % (0.0-11.0); NEUTROPHIL # 5.3 10^3/ul (1.6-7.5); NEUTROPHILS % 65.5 % (39.0-77.0); PLATELET COUNT 157 10^3/UL (140-415); POSITIVE DIFF @See below; RED BLOOD COUNT 2.76 10^6/ul (4.70-6.10); RED CELL DISTRIBUTION WIDTH 17.3 % (11.5-14.5)
[2018-06-09 06:27] LABS: WHITE BLOOD COUNT 8.1 10^3/ul (4.8-10.8)
[2018-06-09 06:38] LABS: ANION GAP 9 (5-13); BLOOD UREA NITROGEN 34 mg/dl (7-20); CALCIUM 8.7 mg/dl (8.4-10.2); CARBON DIOXIDE 32 mmol/L (21-31); CHLORIDE 92 mmol/L (97-110); CREATININE 0.99 mg/dl (0.61-1.24); Estimated GFR > 60 mL/min (>60); GLUCOSE 138 mg/dl (70-220); POTASSIUM 4.7 mmol/L (3.5-5.1); SODIUM 133 mmol/L (135-144)
[2018-06-09 07:07] LABS: MAGNESIUM 2.1 mg/dl (1.7-2.5)
[2018-06-09 07:07] LABS: PHOSPHORUS 5.2 mg/dl (2.5-4.9)
[2018-06-09] MEDS: LISINOPRIL 5 MG TAB PO (09:00)
[2018-06-09] MEDS: FUROSEMIDE 20 MG TAB PO (09:00)
[2018-06-09] MEDS: POLYETHYLENE GLYCOL 17 GM PACKET PO (09:00)
[2018-06-09] MEDS: COLLAGENASE 5 GM (UD JAR) TOP (09:45)
[2018-06-09] MEDS: BALSAM PERU/CASTOR OIL 60 GM TUBE TOP (09:45)
[2018-06-09] MEDS ORDERED: BISACODYL (EC) 5 MG TAB PO ×2 (17:30)
[2018-06-09] MEDS: BISACODYL 10 MG SUPP PR ×2 (18:11→22:57)
[2018-06-09] MEDS: PEG/ELECTROLYTES 4L BTL PO ×2 (19:55→22:52)
[2018-06-09] MEDS: ATORVASTATIN 80 MG TAB PO (20:28)
[2018-06-09] MEDS: METOCLOPRAMIDE (1 MG/ML) 10 ML CUP GTB (23:22)
[2018-06-10] MEDS: PANTOPRAZOLE 40 MG INJ IV (05:10)
[2018-06-10] MEDS ORDERED: PROPOFOL 20 ML (08:56)
[2018-06-10] MEDS ORDERED: ROCURONIUM 50 MG INJ (08:56)
[2018-06-10] MEDS: POLYETHYLENE GLYCOL 17 GM PACKET PO (09:00)
[2018-06-10] MEDS: LISINOPRIL 5 MG TAB PO (09:00)
[2018-06-10] MEDS: FUROSEMIDE 20 MG TAB PO (09:00)
[2018-06-10] MEDS: BALSAM PERU/CASTOR OIL 60 GM TUBE TOP (09:23)
[2018-06-10] MEDS: COLLAGENASE 5 GM (UD JAR) TOP (09:23)
[2018-06-10 18:54] LABS: ADD MAN DIFF? NO
[2018-06-10 18:57] LABS: PLATELET COUNT 191 10^3/UL (140-415)
[2018-06-10 19:10] LABS: WHITE BLOOD COUNT 5.9 10^3/ul (4.8-10.8)
[2018-06-10 19:10] LABS: ABNORMAL IP MESSAGE 1; BASOPHILS % 0.3 % (0.0-2.0); EOSINOPHILS % 0.5 % (0.0-7.0); HEMATOCRIT 27.1 % (42.0-52.0); HEMOGLOBIN 8.4 g/dl (14.0-18.0); LYMPHOCYTES # 0.8 10^3/ul (0.8-2.9); LYMPHOCYTES % 13.6 % (15.0-51.0); MEAN CORPUSCULAR HEMOGLOBIN 28.5 pg (29.0-33.0); MEAN CORPUSCULAR VOLUME 91.9 fl (82.0-101.0); MEAN PLATELET VOLUME 13.4 fl (7.4-10.4); MONOCYTE # 0.8 10^3/ul (0.3-0.9); MONOCYTES % 13.6 % (0.0-11.0); NEUTROPHIL # 4.2 10^3/ul (1.6-7.5); NEUTROPHILS % 71.7 % (39.0-77.0); PLATELET COUNT 187 10^3/UL (140-415); POSITIVE DIFF @See below; RED BLOOD COUNT 2.95 10^6/ul (4.70-6.10); RED CELL DISTRIBUTION WIDTH 17.2 % (11.5-14.5)
[2018-06-10 19:19] LABS: ALANINE AMINOTRANSFERASE 16 IU/L (13-69); ALBUMIN 3.3 g/dl (3.3-4.9); ALBUMIN/GLOBULIN RATIO 0.75; ALKALINE PHOSPHATASE 102 IU/L (42-121); ANION GAP 8 (5-13); ASPARTATE AMINO TRANSFERASE 34 IU/L (15-46); BILIRUBIN,INDIRECT 0.7 mg/dl (0-1.1); BILIRUBIN,TOTAL 0.7 mg/dl (0.2-1.3); BLOOD UREA NITROGEN 28 mg/dl (7-20); CALCIUM 9.1 mg/dl (8.4-10.2); CARBON DIOXIDE 30 mmol/L (21-31); CHLORIDE 95 mmol/L (97-110); CREATININE 0.83 mg/dl (0.61-1.24); Estimated GFR > 60 mL/min (>60); GLUCOSE 139 mg/dl (70-220); POTASSIUM 4.5 mmol/L (3.5-5.1); SODIUM 133 mmol/L (135-144); TOTAL PROTEIN 7.7 g/dl (6.1-8.1)
[2018-06-10 19:24] LABS: INR 1.33; PROTIME 16.6 Sec (11.9-14.9); PT RATIO 1.3; THROMBIN TIME 19.2 SEC (13.8-19.1)
[2018-06-10] MEDS: ATORVASTATIN 80 MG TAB PO (20:52)
[2018-06-11] MEDS: LORAZEPAM 4 MG/ML VIAL IV (03:25)
[2018-06-11] MEDS ORDERED: ALBUTEROL/IPRATROPIUM (NEB) 3 ML AMP HHN (03:30)
[2018-06-11 03:36] LABS: AADO2 Arterial 592.1 mmHg (7.0-24.0); Allen Test ACCEPTAB; Arterial Base Excess -1.4 mmol/L (-3.0-3); Arterial Blood Gas Oxygen Sat 94.7 mmHG (95.0-98.0); Arterial COHb 0.7 % (0.0-3.0); Arterial Fraction of Oxyhgb 93.8 % (93.0-99.0); Arterial HCO3 23.6 mmol/L (22.0-26.0); Arterial MetHb 0.3 % (0.0-1.5); Arterial pCO2 40.6 mmhg (35-45); MODE VENT - AC; Site Right Radial
[2018-06-11 03:47] LABS: ADD MAN DIFF? NO
[2018-06-11] MEDS ORDERED: ACETYLCYSTEINE 20% 4 ML VIAL NEB ×2 (04:00→05:00)
[2018-06-11 04:05] LABS: ANION GAP 14 (5-13); BLOOD UREA NITROGEN 29 mg/dl (7-20); CALCIUM 9.3 mg/dl (8.4-10.2); CARBON DIOXIDE 27 mmol/L (21-31); CHLORIDE 94 mmol/L (97-110); CREATININE 1.05 mg/dl (0.61-1.24); Estimated GFR > 60 mL/min (>60); GLUCOSE 246 mg/dl (70-220); POTASSIUM 4.3 mmol/L (3.5-5.1); SODIUM 135 mmol/L (135-144)
[2018-06-11 04:13] LABS: ABNORMAL IP MESSAGE 1; BASOPHILS % 0.3 % (0.0-2.0); EOSINOPHILS # 0.1 10^3/ul (0.0-0.5); EOSINOPHILS % 0.7 % (0.0-7.0); HEMATOCRIT 33.2 % (42.0-52.0); HEMOGLOBIN 10.3 g/dl (14.0-18.0); LYMPHOCYTES % 8.5 % (15.0-51.0); MEAN CORPUSCULAR HEMOGLOBIN 28.9 pg (29.0-33.0); MEAN PLATELET VOLUME 13.1 fl (7.4-10.4); MONOCYTE # 0.9 10^3/ul (0.3-0.9); MONOCYTES % 7.2 % (0.0-11.0); NEUTROPHIL # 9.9 10^3/ul (1.6-7.5); NEUTROPHILS % 82.8 % (39.0-77.0); PLATELET COUNT 282 10^3/UL (140-415); POSITIVE DIFF @See below; RED BLOOD COUNT 3.57 10^6/ul (4.70-6.10); RED CELL DISTRIBUTION WIDTH 17.1 % (11.5-14.5)
[2018-06-11] MEDS: PANTOPRAZOLE (EC) 40 MG TAB PO (05:22)
[2018-06-11] MEDS: FUROSEMIDE 20 MG TAB PO (08:18)
[2018-06-11] MEDS: LISINOPRIL 5 MG TAB PO (08:20)
[2018-06-11] MEDS: BALSAM PERU/CASTOR OIL 60 GM TUBE TOP (08:20)
[2018-06-11] MEDS: POLYETHYLENE GLYCOL 17 GM PACKET PO (08:20)
[2018-06-11] MEDS: COLLAGENASE 5 GM (UD JAR) TOP (09:42)
[2018-06-11] MEDS ORDERED: VANCOMYCIN IV PER PHARMACY XX (11:00)
[2018-06-11] MEDS ORDERED: MEROPENEM 500MG/50 ML (PMX) 50 ML IVPB (11:00)
[2018-06-11] MEDS: PROPOFOL 40 ML (11:11)
[2018-06-11] MEDS: FENTAnyl 50 MCG/ML VIAL (11:11)
[2018-06-11] MEDS: LIDOCAINE 2% (SDV) 5 ML INJ (11:11)
[2018-06-11] MEDS: MIDAZOLAM 1 MG/ML 2 ML INJ (11:11)
[2018-06-11] MEDS: LIDOCAINE 1% (MPF) 5 ML VIAL (11:15)
[2018-06-11] MEDS: EPHEDrine SULFATE 50 MG/5 ML SYG (12:26)
[2018-06-11] MEDS: MEROPENEM 1 GM/50ML(PMX) 50 ML IVPB ×2 (14:40→21:06)
[2018-06-11] MEDS: VANCOMYCIN 1.75 GM in SOD CHLORIDE 0.9% 500 ML IVPB (15:38)
[2018-06-11] MEDS: SOD CHLORIDE 0.9% 500 ML IV (17:06)
[2018-06-11] MEDS: ATORVASTATIN 80 MG TAB PO (20:54)
[2018-06-12 05:02] LABS: ADD MAN DIFF? NO
[2018-06-12 05:12] LABS: BASOPHILS % 0.4 % (0.0-2.0); EOSINOPHILS # 0.1 10^3/ul (0.0-0.5); EOSINOPHILS % 1.2 % (0.0-7.0); HEMATOCRIT 23.3 % (42.0-52.0); HEMOGLOBIN 7.4 g/dl (14.0-18.0); LYMPHOCYTES # 1.1 10^3/ul (0.8-2.9); LYMPHOCYTES % 20.3 % (15.0-51.0); MEAN CORPUSCULAR HEMOGLOBIN 28.7 pg (29.0-33.0); MEAN CORPUSCULAR HGB CONC 31.8 g/dl (32.0-37.0); MEAN CORPUSCULAR VOLUME 90.3 fl (82.0-101.0); MEAN PLATELET VOLUME 12.5 fl (7.4-10.4); MONOCYTE # 0.7 10^3/ul (0.3-0.9); NEUTROPHIL # 3.3 10^3/ul (1.6-7.5); NEUTROPHILS % 63.9 % (39.0-77.0); PLATELET COUNT 174 10^3/UL (140-415); RED BLOOD COUNT 2.58 10^6/ul (4.70-6.10)
[2018-06-12 05:12] LABS: WHITE BLOOD COUNT 5.2 10^3/ul (4.8-10.8)
[2018-06-12 05:34] LABS: PHOSPHORUS 4.3 mg/dl (2.5-4.9)
[2018-06-12] MEDS: MEROPENEM 1 GM/50ML(PMX) 50 ML IVPB ×3 (05:35→21:03)
[2018-06-12] MEDS: LANSOPRAZOLE 30 MG CAP GTB (05:49)
[2018-06-12 05:55] LABS: ANION GAP 10 (5-13); BLOOD UREA NITROGEN 34 mg/dl (7-20); CALCIUM 8.6 mg/dl (8.4-10.2); CARBON DIOXIDE 29 mmol/L (21-31); CHLORIDE 98 mmol/L (97-110); CREATININE 0.91 mg/dl (0.61-1.24); Estimated GFR > 60 mL/min (>60); GLUCOSE 141 mg/dl (70-220); POTASSIUM 4.1 mmol/L (3.5-5.1); SODIUM 137 mmol/L (135-144)
[2018-06-12] MEDS: FUROSEMIDE 20 MG TAB PO (09:00)
[2018-06-12] MEDS: LISINOPRIL 5 MG TAB PO (09:00)
[2018-06-12] MEDS: COLLAGENASE 5 GM (UD JAR) TOP (09:01)
[2018-06-12] MEDS: BALSAM PERU/CASTOR OIL 60 GM TUBE TOP (09:01)
[2018-06-12] MEDS: POLYETHYLENE GLYCOL 17 GM PACKET PO (09:02)
[2018-06-12] MEDS: VANCOMYCIN 1.25 GM in SOD CHLORIDE 0.9% 250 ML IVPB (11:30)
[2018-06-12 11:40] LABS: IMMEDIATE SPIN CROSSMATCH 1 1
[2018-06-12] MEDS ORDERED: FUROSEMIDE 20 MG INJ IV ×2 (18:00)
[2018-06-12] MEDS: FUROSEMIDE 20 MG INJ IV (21:02)
[2018-06-12] MEDS: ATORVASTATIN 80 MG TAB PO (21:03)
[2018-06-13 05:02] LABS: AADO2 Arterial 124.8 mmHg (7.0-24.0); Arterial Base Excess 4.9 mmol/L (-3.0-3); Arterial Blood Gas Oxygen Sat 98.7 mmHG (95.0-98.0); Arterial COHb 0.8 % (0.0-3.0); Arterial Fraction of Oxyhgb 97.6 % (93.0-99.0); Arterial HCO3 27.6 mmol/L (22.0-26.0); Arterial MetHb 0.3 % (0.0-1.5); Arterial pCO2 34.5 mmhg (35-45); MODE VENT - AC; Site Right Brachial
[2018-06-13 05:05] LABS: ADD MAN DIFF? NO
[2018-06-13 05:17] LABS: WHITE BLOOD COUNT 5.3 10^3/ul (4.8-10.8)
[2018-06-13 05:17] LABS: BASOPHILS % 0.4 % (0.0-2.0); EOSINOPHILS # 0.2 10^3/ul (0.0-0.5); EOSINOPHILS % 2.9 % (0.0-7.0); HEMATOCRIT 27.6 % (42.0-52.0); HEMOGLOBIN 8.7 g/dl (14.0-18.0); LYMPHOCYTES # 1.2 10^3/ul (0.8-2.9); LYMPHOCYTES % 23.4 % (15.0-51.0); MEAN CORPUSCULAR HEMOGLOBIN 28.4 pg (29.0-33.0); MEAN CORPUSCULAR HGB CONC 31.5 g/dl (32.0-37.0); MEAN CORPUSCULAR VOLUME 90.2 fl (82.0-101.0); MEAN PLATELET VOLUME 12.4 fl (7.4-10.4); MONOCYTE # 0.7 10^3/ul (0.3-0.9); MONOCYTES % 12.6 % (0.0-11.0); NEUTROPHIL # 3.2 10^3/ul (1.6-7.5); NEUTROPHILS % 60.5 % (39.0-77.0); PLATELET COUNT 189 10^3/UL (140-415); RED BLOOD COUNT 3.06 10^6/ul (4.70-6.10); RED CELL DISTRIBUTION WIDTH 17.1 % (11.5-14.5)
[2018-06-13 05:40] LABS: ANION GAP 9 (5-13); BLOOD UREA NITROGEN 31 mg/dl (7-20); CALCIUM 8.6 mg/dl (8.4-10.2); CARBON DIOXIDE 31 mmol/L (21-31); CHLORIDE 99 mmol/L (97-110); CREATININE 0.81 mg/dl (0.61-1.24); Estimated GFR > 60 mL/min (>60); GLUCOSE 131 mg/dl (70-220); POTASSIUM 3.9 mmol/L (3.5-5.1); SODIUM 139 mmol/L (135-144)
[2018-06-13] MEDS: LANSOPRAZOLE 30 MG CAP GTB (05:44)
[2018-06-13] MEDS: MEROPENEM 1 GM/50ML(PMX) 50 ML IVPB ×3 (05:44→21:52)
[2018-06-13 06:03] LABS: LACTIC ACID 1.4 mmol/L (0.5-2.0)
[2018-06-13] MEDS: LISINOPRIL 5 MG TAB PO (08:29)
[2018-06-13] MEDS: COLLAGENASE 5 GM (UD JAR) TOP (08:29)
[2018-06-13] MEDS: FUROSEMIDE 20 MG INJ IV ×3 (08:30→21:52)
[2018-06-13] MEDS: POLYETHYLENE GLYCOL 17 GM PACKET PO (08:30)
[2018-06-13] MEDS: BALSAM PERU/CASTOR OIL 60 GM TUBE TOP (08:30)
[2018-06-13] MEDS: VANCOMYCIN 1.25 GM in SOD CHLORIDE 0.9% 250 ML IVPB (12:27)
[2018-06-13] MEDS: ATORVASTATIN 80 MG TAB PO (21:51)
[2018-06-14 05:37] LABS: ADD MAN DIFF? NO
[2018-06-14 05:53] LABS: BASOPHILS % 0.5 % (0.0-2.0); EOSINOPHILS # 0.2 10^3/ul (0.0-0.5); EOSINOPHILS % 3.7 % (0.0-7.0); HEMATOCRIT 28.6 % (42.0-52.0); HEMOGLOBIN 9.1 g/dl (14.0-18.0); LYMPHOCYTES # 1.5 10^3/ul (0.8-2.9); LYMPHOCYTES % 25.9 % (15.0-51.0); MEAN CORPUSCULAR HEMOGLOBIN 28.7 pg (29.0-33.0); MEAN CORPUSCULAR HGB CONC 31.8 g/dl (32.0-37.0); MEAN CORPUSCULAR VOLUME 90.2 fl (82.0-101.0); MEAN PLATELET VOLUME 12.5 fl (7.4-10.4); MONOCYTE # 0.8 10^3/ul (0.3-0.9); MONOCYTES % 13.6 % (0.0-11.0); NEUTROPHIL # 3.2 10^3/ul (1.6-7.5); NEUTROPHILS % 55.9 % (39.0-77.0); PLATELET COUNT 194 10^3/UL (140-415); RED BLOOD COUNT 3.17 10^6/ul (4.70-6.10); RED CELL DISTRIBUTION WIDTH 16.9 % (11.5-14.5)
[2018-06-14 05:53] LABS: WHITE BLOOD COUNT 5.7 10^3/ul (4.8-10.8)
[2018-06-14 05:59] LABS: ALANINE AMINOTRANSFERASE 18 IU/L (13-69); ALBUMIN 3.1 g/dl (3.3-4.9); ALBUMIN/GLOBULIN RATIO 0.72; ALKALINE PHOSPHATASE 101 IU/L (42-121); ANION GAP 10 (5-13); ASPARTATE AMINO TRANSFERASE 34 IU/L (15-46); BILIRUBIN,INDIRECT 0.6 mg/dl (0-1.1); BILIRUBIN,TOTAL 0.6 mg/dl (0.2-1.3); BLOOD UREA NITROGEN 28 mg/dl (7-20); CALCIUM 8.8 mg/dl (8.4-10.2); CARBON DIOXIDE 29 mmol/L (21-31); CHLORIDE 99 mmol/L (97-110); CREATININE 0.79 mg/dl (0.61-1.24); Estimated GFR > 60 mL/min (>60); GLUCOSE 137 mg/dl (70-220); POTASSIUM 3.8 mmol/L (3.5-5.1); SODIUM 138 mmol/L (135-144); TOTAL PROTEIN 7.4 g/dl (6.1-8.1)
[2018-06-14 06:00] LABS: PARTIAL THROMBOPLASTIN TIME 37.2 Sec (23.0-35.0)
[2018-06-14] MEDS: LANSOPRAZOLE 30 MG CAP GTB (06:19)
[2018-06-14] MEDS: MEROPENEM 1 GM/50ML(PMX) 50 ML IVPB ×3 (06:19→21:05)
[2018-06-14] MEDS: COLLAGENASE 5 GM (UD JAR) TOP (09:15)
[2018-06-14] MEDS: LISINOPRIL 5 MG TAB PO (09:16)
[2018-06-14] MEDS: BALSAM PERU/CASTOR OIL 60 GM TUBE TOP (09:16)
[2018-06-14] MEDS: POLYETHYLENE GLYCOL 17 GM PACKET PO (09:17)
[2018-06-14] MEDS: FUROSEMIDE 20 MG INJ IV ×2 (09:18→12:25)
[2018-06-14 11:11] LABS: VANCOMYCIN,TROUGH 14.2 ug/ml (10.0-20.0)
[2018-06-14] MEDS: VANCOMYCIN 1.25 GM in SOD CHLORIDE 0.9% 250 ML IVPB (12:22)
[2018-06-14] MEDS: EPOETIN ALFA 20,000 UNIT/2 ML VIAL SC (17:28)
[2018-06-14] MEDS: FUROSEMIDE 40 MG INJ IV (17:28)
[2018-06-14] MEDS: ATORVASTATIN 80 MG TAB PO (21:05)
[2018-06-15 05:14] LABS: ADD MAN DIFF? NO
[2018-06-15 05:18] LABS: WHITE BLOOD COUNT 5.9 10^3/ul (4.8-10.8)
[2018-06-15 05:18] LABS: BASOPHILS % 0.3 % (0.0-2.0); EOSINOPHILS # 0.3 10^3/ul (0.0-0.5); EOSINOPHILS % 4.8 % (0.0-7.0); HEMATOCRIT 29.9 % (42.0-52.0); HEMOGLOBIN 9.3 g/dl (14.0-18.0); LYMPHOCYTES # 1.3 10^3/ul (0.8-2.9); LYMPHOCYTES % 21.6 % (15.0-51.0); MEAN CORPUSCULAR HEMOGLOBIN 28.4 pg (29.0-33.0); MEAN CORPUSCULAR HGB CONC 31.1 g/dl (32.0-37.0); MEAN CORPUSCULAR VOLUME 91.4 fl (82.0-101.0); MEAN PLATELET VOLUME 12.3 fl (7.4-10.4); MONOCYTE # 0.7 10^3/ul (0.3-0.9); MONOCYTES % 12.2 % (0.0-11.0); NEUTROPHIL # 3.6 10^3/ul (1.6-7.5); NEUTROPHILS % 60.8 % (39.0-77.0); PLATELET COUNT 198 10^3/UL (140-415); RED BLOOD COUNT 3.27 10^6/ul (4.70-6.10); RED CELL DISTRIBUTION WIDTH 16.6 % (11.5-14.5)
[2018-06-15 05:44] LABS: ANION GAP 10 (5-13); BLOOD UREA NITROGEN 27 mg/dl (7-20); CALCIUM 8.8 mg/dl (8.4-10.2); CARBON DIOXIDE 33 mmol/L (21-31); CHLORIDE 97 mmol/L (97-110); Estimated GFR > 60 mL/min (>60); GLUCOSE 132 mg/dl (70-220); POTASSIUM 4.2 mmol/L (3.5-5.1); SODIUM 140 mmol/L (135-144)
[2018-06-15 05:45] LABS: MAGNESIUM 1.8 mg/dl (1.7-2.5)
[2018-06-15] MEDS: MEROPENEM 1 GM/50ML(PMX) 50 ML IVPB ×3 (05:51→21:09)
[2018-06-15] MEDS: FUROSEMIDE 40 MG INJ IV ×2 (05:52→17:42)
[2018-06-15] MEDS: LANSOPRAZOLE 30 MG CAP GTB (05:53)
[2018-06-15] MEDS: LISINOPRIL 5 MG TAB PO (09:00)
[2018-06-15] MEDS ORDERED: VANCOMYCIN 1.5 GM in SOD CHLORIDE 0.9% 250 ML IVPB (09:00)
[2018-06-15] MEDS: COLLAGENASE 5 GM (UD JAR) TOP (09:39)
[2018-06-15] MEDS: BALSAM PERU/CASTOR OIL 60 GM TUBE TOP (09:39)
[2018-06-15] MEDS: POLYETHYLENE GLYCOL 17 GM PACKET PO (09:39)
[2018-06-15] MEDS: VANCOMYCIN 1.25 GM in SOD CHLORIDE 0.9% 250 ML IVPB (12:27)
[2018-06-15] MEDS: ATORVASTATIN 80 MG TAB PO (20:59)
[2018-06-16] MEDS: FUROSEMIDE 40 MG INJ IV ×2 (05:33→17:21)
[2018-06-16] MEDS: MEROPENEM 1 GM/50ML(PMX) 50 ML IVPB (05:33)
[2018-06-16] MEDS: LANSOPRAZOLE 30 MG CAP GTB (05:33)
[2018-06-16 05:41] LABS: ADD MAN DIFF? NO
[2018-06-16 05:50] LABS: WHITE BLOOD COUNT 6.5 10^3/ul (4.8-10.8)
[2018-06-16 05:50] LABS: BASOPHILS % 0.5 % (0.0-2.0); EOSINOPHILS # 0.3 10^3/ul (0.0-0.5); EOSINOPHILS % 4.2 % (0.0-7.0); HEMATOCRIT 30.2 % (42.0-52.0); HEMOGLOBIN 9.6 g/dl (14.0-18.0); LYMPHOCYTES # 1.5 10^3/ul (0.8-2.9); LYMPHOCYTES % 23.2 % (15.0-51.0); MEAN CORPUSCULAR HEMOGLOBIN 28.8 pg (29.0-33.0); MEAN CORPUSCULAR HGB CONC 31.8 g/dl (32.0-37.0); MEAN CORPUSCULAR VOLUME 90.7 fl (82.0-101.0); MEAN PLATELET VOLUME 12.5 fl (7.4-10.4); MONOCYTE # 0.8 10^3/ul (0.3-0.9); MONOCYTES % 12.5 % (0.0-11.0); NEUTROPHIL # 3.8 10^3/ul (1.6-7.5); PLATELET COUNT 189 10^3/UL (140-415); RED BLOOD COUNT 3.33 10^6/ul (4.70-6.10); RED CELL DISTRIBUTION WIDTH 16.5 % (11.5-14.5)
[2018-06-16 06:15] LABS: MAGNESIUM 1.8 mg/dl (1.7-2.5)
[2018-06-16 06:16] LABS: ANION GAP 7 (5-13); BLOOD UREA NITROGEN 28 mg/dl (7-20); CALCIUM 8.7 mg/dl (8.4-10.2); CARBON DIOXIDE 33 mmol/L (21-31); CHLORIDE 96 mmol/L (97-110); CREATININE 0.66 mg/dl (0.61-1.24); Estimated GFR > 60 mL/min (>60); GLUCOSE 127 mg/dl (70-220); SODIUM 136 mmol/L (135-144)
[2018-06-16] MEDS: POLYETHYLENE GLYCOL 17 GM PACKET PO (08:58)
[2018-06-16] MEDS: COLLAGENASE 5 GM (UD JAR) TOP (08:58)
[2018-06-16] MEDS: LISINOPRIL 5 MG TAB PO (08:59)
[2018-06-16] MEDS: BALSAM PERU/CASTOR OIL 60 GM TUBE TOP (09:02)
[2018-06-16] MEDS: VANCOMYCIN 1.25 GM in SOD CHLORIDE 0.9% 250 ML IVPB (11:32)
[2018-06-16] MEDS: CLOPIDOGREL 75 MG TAB PO (13:52)
[2018-06-16] MEDS: ATORVASTATIN 80 MG TAB PO (20:34)
[2018-06-17 05:20] LABS: ADD MAN DIFF? NO
[2018-06-17 05:28] LABS: WHITE BLOOD COUNT 6.6 10^3/ul (4.8-10.8)
[2018-06-17 05:28] LABS: BASOPHILS % 0.5 % (0.0-2.0); EOSINOPHILS # 0.3 10^3/ul (0.0-0.5); EOSINOPHILS % 3.8 % (0.0-7.0); HEMATOCRIT 29.3 % (42.0-52.0); HEMOGLOBIN 9.3 g/dl (14.0-18.0); LYMPHOCYTES # 1.8 10^3/ul (0.8-2.9); LYMPHOCYTES % 26.6 % (15.0-51.0); MEAN CORPUSCULAR HEMOGLOBIN 28.5 pg (29.0-33.0); MEAN CORPUSCULAR HGB CONC 31.7 g/dl (32.0-37.0); MEAN CORPUSCULAR VOLUME 89.9 fl (82.0-101.0); MEAN PLATELET VOLUME 12.8 fl (7.4-10.4); MONOCYTE # 0.8 10^3/ul (0.3-0.9); MONOCYTES % 12.6 % (0.0-11.0); NEUTROPHIL # 3.7 10^3/ul (1.6-7.5); NEUTROPHILS % 56.3 % (39.0-77.0); PLATELET COUNT 191 10^3/UL (140-415); RED BLOOD COUNT 3.26 10^6/ul (4.70-6.10); RED CELL DISTRIBUTION WIDTH 16.3 % (11.5-14.5)
[2018-06-17] MEDS: FUROSEMIDE 40 MG INJ IV ×2 (05:54→18:17)
[2018-06-17] MEDS: LANSOPRAZOLE 30 MG CAP GTB (05:58)
[2018-06-17] MEDS: POLYETHYLENE GLYCOL 17 GM PACKET PO (09:10)
[2018-06-17] MEDS: CLOPIDOGREL 75 MG TAB PO (09:10)
[2018-06-17] MEDS: COLLAGENASE 5 GM (UD JAR) TOP (09:11)
[2018-06-17] MEDS: BALSAM PERU/CASTOR OIL 60 GM TUBE TOP (09:11)
[2018-06-17] MEDS: LISINOPRIL 5 MG TAB PO (09:11)
== END 2018-06-17 20:53 | DRG 870 ==
LOC: TEL 05-27 12:23 → ICU 06-11 04:26 → 6WM 06-13 17:18 → E/R 10:18 → ICU 12:55
PROC: 5A1955Z Respiratory Ventilation, Greater than 96 Consecutive Hours (ICD-10-PCS; principal; 2018-06-10 08:35)
PROC: 30233N1 Transfusion of Nonautologous Red Blood Cells into Peripheral Vein, Percutaneous Approach (ICD-10-PCS; 2018-06-10 08:35)
PROC: 0DJ08ZZ Inspection of Upper Intestinal Tract, Via Natural or Artificial Opening Endoscopic (ICD-10-PCS; 2018-06-10 08:35)
PROC: 07DR3ZX Extraction of Iliac Bone Marrow, Percutaneous Approach, Diagnostic (ICD-10-PCS; 2018-06-10 08:35)
DX: A40.8 Other streptococcal sepsis (principal); R65.21 Severe sepsis with septic shock; I21.4 Non-ST elevation (NSTEMI) myocardial infarction; J18.9 Pneumonia, unspecified organism; R57.1 Hypovolemic shock; J96.21 Acute and chronic respiratory failure with hypoxia; G92 Toxic encephalopathy; N17.9 Acute kidney failure, unspecified; E87.1 Hypo-osmolality and hyponatremia; I13.0 Hypertensive heart and chronic kidney disease with heart failure and stage 1 through stage 4 chronic kidney disease, or unspecified chronic kidney disease; K92.2 Gastrointestinal hemorrhage, unspecified; N39.0 Urinary tract infection, site not specified; I95.9 Hypotension, unspecified; Z79.02 Long term (current) use of antithrombotics/antiplatelets; Z79.82 Long term (current) use of aspirin; I25.10 Atherosclerotic heart disease of native coronary artery without angina pectoris; Z95.5 Presence of coronary angioplasty implant and graft; R13.10 Dysphagia, unspecified; Z93.1 Gastrostomy status; D69.6 Thrombocytopenia, unspecified; D63.8 Anemia in other chronic diseases classified elsewhere; I25.5 Ischemic cardiomyopathy; Z86.59 Personal history of other mental and behavioral disorders; N18.9 Chronic kidney disease, unspecified; D50.9 Iron deficiency anemia, unspecified; S31.109A Unspecified open wound of abdominal wall, unspecified quadrant without penetration into peritoneal cavity, initial encounter; Y95 Nosocomial condition; L89.109 Pressure ulcer of unspecified part of back, unspecified stage; K64.8 Other hemorrhoids; I50.9 Heart failure, unspecified; K29.00 Acute gastritis without bleeding; K44.9 Diaphragmatic hernia without obstruction or gangrene; Z86.010 Personal history of colon polyps
CPT/HCPCS: 36415; 36430; 36600; 70450; 71045; 76937; 77012; 80048; 80053; 80061; 80202; 81001; 82270; 82550; 82553; 82565; 82607; 82668; 82728; 82746; 82803; 82962; 83010; 83036; 83540; 83605; 83615; 83735; 84100; 84155; 84165; 84443; 84484; 84520; 85025; 85045; 85049; 85610; 85670; 85730; 86644; 86850; 86900; 86901; 86920; 87040; 87070; 87081; 87086; 88184; 88185; 88237; 88264; 88280; 88305; 88311; 88313; 89220; 92526; 92610; 93005; 93308; 94002; 94003; 96365; 96368; 97162; 97530; 99291-25